=== PATIENT | female | born 1955 | race Two or more races ===

== ENCOUNTER → 2024-06-28 | Outpatient (CLI) | payer MEDICARE, MEDICAID, SELFPAY ==
--- NOTE | 2024-06-28 10:39 | XR_ITS ---
Examination: Shoulder,left, 3 views Technique: Shoulder AP internal rotation, AP external rotation, Y view shoulder, 3 views Exam date and time :June 28, 2024 1046 hours INDICATIONS: Status post shoulder replacement May 24, 2024 decreased range of motion FINDINGS: Reverse shoulder arthroplasty. Satisfactory alignment Prominent osteopenia No fracture IMPRESSION: Reverse shoulder arthroplasty with satisfactory alignment
== END | disposition home or self-care (01) ==
LOC: CDIM 10:21
PROVIDERS: PCP Nurse Practitioner Family; Referring Provider Orthopaedic Surgery Orthopaedic Trauma; Visit Provider Orthopaedic Surgery Orthopaedic Trauma
DX: Z47.1 Aftercare following joint replacement surgery (principal); Z96.612 Presence of left artificial shoulder joint; M25.512 Pain in left shoulder
CPT/HCPCS: 73030

== ENCOUNTER 2024-11-30 06:50 | Emergency (ER) | payer MEDICARE, MEDICAID, SELFPAY ==
--- NOTE | 2024-11-30 07:00 | XR_ITS ---
Examination: Shoulder,left, 3 views Technique: Shoulder AP internal rotation, AP external rotation, Y view shoulder, 3 views Exam date and time :November 30, 2024 0743 hours INDICATIONS: Patient fell today with injury to the shoulder, shoulder pain. FINDINGS: Acute comminuted displaced fractures distal clavicular shaft Reversal shoulder arthroplasty with satisfactory alignment IMPRESSION: Acute angulated comminuted displaced fractures distal clavicular shaft
--- NOTE | 2024-11-30 07:00 | XR_ITS ---
Examination: Clavicle 2 views, left Technique: Clavicle AP, angled up AP, 2 views Exam date and time: November 30, 2024 0743 hours INDICATIONS: Patient fell today with injury to the shoulder, clavicle pain FINDINGS: Acute comminuted fractures distal shaft clavicle one shaft width offset and angulation at the fracture site IMPRESSION: Acute comminuted clavicular shaft fractures
[2024-11-30 07:02] VITALS: BP 186/69; PULSE 70; RESP 18; TEMP 36.5; O2SAT 100; BMI 32.5
--- NOTE | 2024-11-30 07:23 | PD.EDFALL ---
ED Fall Injury RME/HPI General Chief Complaint: Fall Stated Complaint: LT SHOULDER PAIN Time Seen by Provider: 11/30/24 06:59 Arrival date/time: 11/30/24 06:50 RME / HPI RME / HPI Narrative: 68 year old female with history of end-stage renal disease on HD M/W/F, diabetes mellitus, hypertension, CVA with residual left-sided weakness, left shoulder surgery, presented to the ER BIBA with a chief complain of left shoulder pain from a fall. Per EMS, patient was sitting in a rolling chair and fell forward while leaning over in her chair to put on her shoes. Per EMS, she fell on her left side and hit her head on her fridge. Patient states she heard a crackle in her left shoulder. Per patient, she normally does not have full ROM/ mobility with her left shoulder/arm. Patient stated no other complaints. Related Data Home Medications ?Medication ?Instructions ?Recorded ?Confirmed amlodipine 5 mg tablet 10 mg PO QAM 07/30/21 11/30/24 sevelamer carbonate 800 mg tablet 800 mg PO TIDWM 07/30/21 12/28/23 hydralazine 50 mg tablet 100 mg PO TID 10/02/21 11/30/24 hydrocodone 10 mg-acetaminophen 5 tab PO QDAY PRN Pain 10/02/21 12/29/23 325 mg tablet albuterol sulfate 2.5 mg/3 mL 3 ml continuous nebulization TID 12/04/21 12/29/23 (0.083 %) solution for nebulization PRN WHEEZING lidocaine 5 % topical patch 1 patch topical QDAY 08/01/22 12/29/23 ropinirole 4 mg tablet 4 mg PO DAILY 08/01/22 11/30/24 gabapentin 300 mg capsule 300 mg PO 3XD 12/28/23 11/30/24 metoprolol succinate 100 mg 100 mg PO QMORNING 12/28/23 11/30/24 tablet,extended release 24 hr omeprazole 40 mg capsule,delayed 40 mg PO QDAY 12/28/23 11/30/24 release sodium zirconium cyclosilicate 10 10 g PO QDAY 12/28/23 12/29/23 gram oral powder packet (Lokelma) Previous Rx's ?Medication ?Instructions ?Recorded aspirin 81 mg tablet,delayed 81 mg PO QDAY #30 tabs 05/24/21 release (Adult Low Dose Aspirin) losartan 25 mg tablet 25 mg PO QDAY #30 tabs 08/04/22 hydrocodone 5 mg-acetaminophen 325 1 tab PO Q6H PRN pain #14 tabs 11/30/ mg tablet Allergies Allergy/AdvReac Type Severity Reaction Status Date / Time sulfamethoxazole Allergy Unknown Swelling Verified 01/23/22 10:16 of Lip/Tongue/Throat trimethoprim Allergy Unknown Swelling Verified 01/23/22 10:16 of Lip/Tongue/Throat Review of Systems Review of Systems Systems Reviewed: All systems reviewed, normal except as documented Narrative Review of Systems: Gen: No fever, no chills, no weight loss EYES: No discharge, no visual changes, no pain HEENT: No ear pain, no congestion, no sore throat PULM: No shortness of breath, no cough, no congestion CV: No chest pain, no dyspnea on exertion, no palpitations GI: No nausea, no vomiting, no diarrhea, no pain, no constipation : No frequency, no urgency, no dysuria Musc/skel: No joint pain, no back pain, +left shoulder pain Skin: No rash Psyc: No hallucinations, no depression Heme/Lymph: No easy bleeding or bruising tendencies Neuro: No weakness, no headache ED Exam Narrative Physical exam: GENERAL APPEARANCE: alert and oriented x 4, well-developed, well-nourished, no acute distress HEENT: Normocephalic, atraumatic; pupils equal, round, reactive to light; EOMI; mucous membranes pink, moist; oropharynx clear NECK: Supple LUNGS: CTABL; no wheezes, no rales, no rhonchi HEART: Regular rate, regular rhythm; normal S1, S2; no murmurs ABDOMEN: non distended; normal BS; soft, no tenderness, no guarding, no rebound; no masses, no organomegaly, no hernia BACK: no CVA tenderness EXTREMITIES: mild contracture of left arm; no edema NEUROLOGIC: awake; alert and oriented x4; cranial nerves II-XII grossly intact; no focal sensory or motor deficits PSYCHIATRIC: appropriate mood and affect SKIN: warm, dry, normal color; no rashes Course Quality Measures none Orders Category Date Time Status Bedside Blood Glucose NOW Care 11/30/24 10:15 Completed Wrapper Hand Q4H START 00 Care 11/30/24 08:16 Completed XR clavicle LT Stat Exams 11/30/24 07:00 Completed XR shoulder LT min 2V Stat Exams 11/30/24 07:00 Completed Albuterol/Ipratr Rt Ree [Duoneb Rt Ree] Med 11/30/24 13:07 Discontinued 3 ml INH X1 ONE HYDROcodone*/APAP 5/325 [Arthur 5/325] Med 11/30/24 07:01 Discontinued 1 tab PO X1 ONE Vital Signs Vital signs: Vital Signs Temperature 97.7 F 11/30/24 07:02 Pulse Rate 70 11/30/24 07:02 Respiratory Rate 18 11/30/24 07:02 Blood Pressure 186/69 H 11/30/24 07:02 Pulse Oximetry (%) 100 11/30/24 07:02 Oxygen Delivery Method Nasal Cannula 11/30/24 07:02 Oxygen Flow Rate 6 11/30/24 07:02 Fall MDM Narrative MDM Narrative:: IBrenda am scribing for and in the presence of Dr. Harper. Patient data External records reviewed:: [facility] previous records and EMS form Clinical information provided by:: patient and EMS Social determinants that could affect healthcare access:: none Patient has the following chronic illnesses:: end-stage renal disease on HD M/W/F, diabetes mellitus, hypertension, CVA with residual left-sided weakness, left shoulder surgery How is presenting disease/condition affected by chronic disease/condition?: exacerbated by Evaluation data The following diagnostics were reviewed and interpreted by me:: radiology exam(s) Lab and/or radiology exams considered but not ordered:: none. Interpretation Summary: Ordering Physician: Muna Harper MD Date of Service: 11/30/24 Procedure(s): XR shoulder LT min 2V Accession Number(s): [id number] cc: Anita Bobby ; Ricardo Belle MD; Muna Harper MD~ Examination: Shoulder,left, 3 views Technique: Shoulder AP internal rotation, AP external rotation, Y view shoulder, 3 views Exam date and time :November 30, 2024 0743 hours INDICATIONS: Patient fell today with injury to the shoulder, shoulder pain. FINDINGS: Acute comminuted displaced fractures distal clavicular shaft Reversal shoulder arthroplasty with satisfactory alignment IMPRESSION: Acute angulated comminuted displaced fractures distal clavicular shaft Dictated By: Ricardo Belle MD Signed By: <Electronically signed by Ricardo Belle MD in OV> 11/30/24926 Ordering Physician: Muna Harper MD Date of Service: 11/30/24 Procedure(s): XR clavicle LT Accession Number(s): [id number] cc: Anita Bobby ; Ricardo Belle MD; Muna Harper MD~ Examination: Clavicle 2 views, left Technique: Clavicle AP, angled up AP, 2 views Exam date and time: November 30, 2024 0743 hours INDICATIONS: Patient fell today with injury to the shoulder, clavicle pain FINDINGS: Acute comminuted fractures distal shaft clavicle one shaft width offset and angulation at the fracture site IMPRESSION: Acute comminuted clavicular shaft fractures Dictated By: Ricardo Belle MD Signed By: <Electronically signed by Ricardo Belle MD in OV> 11/30/24926 Medications / Prescriptions Medications or Prescriptions considered but not ordered:: none. Medication administrations:: Medication Administration History Discontinued Medications Hydrocodone Bitart/Acetaminophen (Hydrocodone/Apap 5/325 Tablet) 1 tab PO X1 ONE Stop: 11/30/24 07:02 Last Admin: 11/30/24 08:11 Dose: 1 tab Documented By: DB Albuterol/Ipratropium (Albuterol/Ipratropium (Duoneb) Rt Ree 3 Ml Nebu) 3 ml INH X1 ONE Stop: 11/30/24 13:08 Last Admin: 11/30/24 13:18 Dose: 3 ml Documented By: EV see above. Consultations Consultation(s) initiated? (list below): Yes Consultation #1 (Physician, Specialty, Details): I spoke with Dr. Trivedi, Ortho, and made aware of the patient?s HPI, PMHx, lab and/or radiology results. Recommended patient follow-up in outpatient with Dr. Zafar. Ortho Surgeon. Diagnosis Fall Differential Diagnosis: syncope, dislocation of shoulder region and compression fracture Most likely diagnosis given after review of the tests above:: closed fracture of left clavicle, comminuted fracture Admission Indicated Admission indicated?: not indicated Admission Request Was there a request for admission?: No Disposition Plan Disposition Plan: Discharge Discharge Attestation Discharge Attestation: The patient and all family members were given an opportunity to ask questions and understood the discharge instructions. Discharge instructions specifically effects, indications for sooner follow up or return to the emergency department, and the expected course of current diagnosis. Patient condition: Stable Discharge Plan Plan Patient Disposition: HOME (Self Care) Prescriptions/Referrals Prescriptions/Med Rec: New hydrocodone-acetaminophen 5-325 mg tablet 1 tab PO Q6H MDD 9 PRN (Reason: pain) Qty: 14 0RF No Action aspirin [Adult Low Dose Aspirin] 81 mg tablet,delayed release (DR/EC) 81 mg PO QDAY Qty: 30 0RF sevelamer carbonate 800 mg tablet 800 mg PO TIDWM amlodipine 5 mg tablet 10 mg PO QAM albuterol sulfate 2.5 mg /3 mL (0.083 %) solution for nebulization 3 ml continuous nebulization TID PRN (Reason: WHEEZING) hydrocodone-acetaminophen 10-325 mg tablet 5 tab PO QDAY PRN (Reason: Pain) hydralazine 50 mg tablet 100 mg PO TID metoprolol succinate 100 mg tablet extended release 24 hr 100 mg PO QMORNING omeprazole 40 mg capsule,delayed release(DR/EC) 40 mg PO QDAY gabapentin 300 mg capsule 300 mg PO 3XD Lokelma 10 gram powder in packet 10 g PO QDAY lidocaine 5 % adhesive patch,medicated 1 patch TOPICAL QDAY ropinirole 4 mg Tablet 4 mg PO DAILY Rx Instructions: TAKE 1 TABLET BY MOUTH 2 HOURS PRIOR TO BEDTIME losartan 25 mg tablet 25 mg PO QDAY Qty: 30 0RF Referrals: Cassius Zafar DO [Referring Provider] - Anita Bobby [Primary Care Provider] - In 1 week Problem List Clinical Impression: Closed fracture of left clavicle, Comminuted fracture Patient/Caregiver Discharge Instructions Education Materials: Understanding a Clavicle Fracture, ED Fracture, Clavicle Additional Instructions: Call orthopedist for follow up appointment Print Language: Slovak Stand Alone Forms: Deepa Award Info., Patient Portal Info Letter
[2024-11-30 07:26] VITALS: PULSE 82; RESP 22; O2SAT 99
[2024-11-30] MEDS: HYDROcodone/APAP 5/325 TABLET 1 TAB PO (08:11)
[2024-11-30 08:16] VITALS: PULSE 91
--- NOTE | 2024-11-30 08:20 | PC.NURSE ---
PT BIB EMS WITH CHIEF C/O OF LEFT SHOULDER PAIN S/P FALL AFTER SHE WAS LEANING FORWARD ON HER CHAIR TO PUT ON HER SHOES. I SPOKE WITH THIS PT DAUGHTER OVER THE PHONE WHO REPORTED TO ME THAT THIS PT FELL LAST NIGHT AT 2300HR AND HIT HER HEAD ON A SMALL REFRIGERATOR THAT SHE HAS IN HER ROOM WITH NO LOC, NOR THE PT DID NOT C/O OF A HEADACHE THOUGHT OUT THE NIGHT, BUT MAINLY C/O OF LEFT SHOULD PAIN. ON ASSESSMENT THERE NO VISIBLE INJURES NOTED ON PT HEAD, NO NECK PAIN. THERE IS PAIN TO THE LEFT ARM ON MOVEMENT WHICH LOCALIZE TO THE LEFT SHOULDER. THERE IS SWELLING AND ECCHYMOSIS TO THE LEFT SHOULDER WITH A WELL HEALED SURGICAL SCAR NOTE. CMS INTACT ON THE LEFT ARM. PT IS UNABLE TO MOVE LEFT ARM DUE TO A CVA IN THE PAST. 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 PT IS A [employer] OF 17, A&OX4, PT PLACED IN A POSITION OF COMFORT, PT GIVEN UPDATE ON PLAN OF CARE, CALL LIGHT WITHIN REACH.
[2024-11-30 10:04] VITALS: BP 158/59; PULSE 65; RESP 17; TEMP 36.5; O2SAT 98
[2024-11-30] MEDS: ALBUTEROL/IPRATROPIUM (Duoneb) RT SOL 3 ML NEBU INH (13:18)
[2024-11-30 13:19] VITALS: PULSE 80; PULSE 84; RESP 24; O2SAT 100; O2SAT 95
[2024-11-30 13:58] VITALS: BP 189/96; PULSE 79; RESP 20; TEMP 36.7; O2SAT 99
== END 2024-11-30 13:59 | disposition home or self-care (01) ==
PROVIDERS: Emergency Provider Emergency Medicine; PCP Nurse Practitioner Family
DX: S42.032A Displaced fracture of lateral end of left clavicle, initial encounter for closed fracture (principal); W19.XXXA Unspecified fall, initial encounter; E11.22 Type 2 diabetes mellitus with diabetic chronic kidney disease; I12.0 Hypertensive chronic kidney disease with stage 5 chronic kidney disease or end stage renal disease; N18.6 End stage renal disease; I69.354 Hemiplegia and hemiparesis following cerebral infarction affecting left non-dominant side
CPT/HCPCS: 73000; 73030; 94640; 99283; A9270

== ENCOUNTER 2025-04-09 01:00 | Inpatient (IN) | payer MEDICARE, MEDICAID, SELFPAY ==
[2025-04-09] VITALS (31 sets, daily range): BP systolic 107–211; BP diastolic 52–90; PULSE 70–109; RESP 18–28; TEMP 36.3–37.7; O2SAT 91–100; BMI 27.1
--- NOTE | 2025-04-09 01:07 | PD.EDABDPN ---
ED Abdominal Pain RME/HPI General Chief Complaint: Nausea/Vomiting/Diarrhea Stated complaint: ABDOMINAL PAIN Time seen by provider: 04/09/25 01:28 Arrival date/time: 04/09/25 01:00 Source: patient and family Mode of arrival: EMS RME / HPI RME / HPI narrative: Ms. Triplett is a 69-year-old female with past medical history of ESRD on HD M/W/F, diabetes mellitus, hypertension, CVA with residual left-sided weakness and left shoulder surgery who presented to [facility] ([facility]3] emergency department with a chief complaint of nausea vomiting and abdominal pain. Patient reported that her symptoms started earlier tonight, complains of uncontrollable nausea vomiting with some episodes of diarrhea, reports passing gas and a regular bowel movement earlier today. On exam patient's abdomen is soft however tender on left side. She denies any other symptoms. Related Data Home Medications ?Medication ?Instructions ?Recorded ?Confirmed amlodipine 5 mg tablet 10 mg PO QAM 07/30/21 04/09/25 sevelamer carbonate 800 mg tablet 800 mg PO TIDWM 07/30/21 04/09/25 hydralazine 50 mg tablet 100 mg PO TID 10/02/21 04/09/25 hydrocodone 10 mg-acetaminophen 5 tab PO QDAY PRN Pain 10/02/21 04/09/25 325 mg tablet albuterol sulfate 2.5 mg/3 mL 3 ml continuous nebulization TID 12/04/21 04/09/25 (0.083 %) solution for nebulization PRN WHEEZING lidocaine 5 % topical patch 1 patch topical QDAY 08/01/22 04/09/25 ropinirole 4 mg tablet 4 mg PO DAILY 08/01/22 04/09/25 gabapentin 300 mg capsule 300 mg PO 3XD 12/28/23 04/09/25 metoprolol succinate 100 mg 100 mg PO QMORNING 12/28/23 04/09/25 tablet,extended release 24 hr Held on 04/09/25. Instructions: Doctor's Order omeprazole 40 mg capsule,delayed 40 mg PO QDAY 12/28/23 04/09/25 release sodium zirconium cyclosilicate 10 10 g PO QDAY 12/28/23 04/09/25 gram oral powder packet (Lokelia) vitamin B comp no.3-folic acid 1 1 tab PO QDAY 04/09/25 04/09/25 mg-vit C 60 mg-biotin 300 mcg tablet ([facility]) Previous Rx's ?Medication ?Instructions ?Recorded aspirin 81 mg tablet,delayed 81 mg PO QDAY #30 tabs 05/24/21 release (Adult Low Dose Aspirin) losartan 25 mg tablet 25 mg PO QDAY #30 tabs 08/04/22 hydrocodone 5 mg-acetaminophen 325 1 tab PO Q6H PRN pain #14 tabs 11/30/24 mg tablet Held on 04/09/25. Instructions: Duplicate Allergies Allergy/AdvReac Type Severity Reaction Status Date / Time sulfamethoxazole Allergy Unknown Swelling Verified 04/09/25 01:07 of Lip/Tongue/Throat trimethoprim Allergy Unknown Swelling Verified 04/09/25 01:07 of Lip/Tongue/Throat Review of Systems Review of Systems Systems Reviewed: All systems reviewed, normal except as documented Past Medical History Past Medical History NEUROLOGIC: Positive Neurological Disorders and Cerebrovascular Accident; Negative Dementia, Seizures or Epilepsy CARDIAC: Positive Cardiac Disorders, Congestive Heart Failure, Edema and Hypertension RESPIRATORY: Positive Asthma, Bronchitis and Pneumonia; Negative Chronic Obstructive Pulmonary Disease (COPD) GASTROINTESTINAL: Positive Gastrointestinal Disorders and Gastroesophageal Reflux Disease; Negative Gall Bladder Disease or Hiatal Hernia GENITOURINARY: Positive Genitourinary Disorders, Renal Disease and Dialysis MUSCULOSKELETAL: Positive Musculoskeletal Disorders, Arthritis, Osteoporosis and Carpal Tunnel Syndrome ENT: Positive Deafness ENDOCRINE: Positive Endocrine Disorders and Diabetes Mellitus Type 2; Negative Diabetes Mellitus Type 1, Hyperthyroidism or Hypothyroidism HEMATOLOGIC: Positive Blood Disorders; Negative Anemia or Sickle Cell Disease PSYCHO/SOCIAL: Positive Depression and Anxiety OTHER HISTORY: Positive Shingles and Falls; Negative Autoimmune Disease, Blood Transfusions, Blood Transfusion Reaction, Anesthesia Reactions or Cancer Family History FAMILY HISTORY: Positive Family Respiratory Disorders, Family Cardiac Disorders and Family Surgery; Negative Family Psychiatric Problems, Family Gastrointestinal Problems, Family Cancer or Family Anesthesia Reaction Surgical History SURGICAL: Positive Hysterectomy Social History SMOKING STATUS: Never smoker SECOND HAND EXPOSURE: Yes ED Exam Narrative Physical exam: Physical Exam General: Awake and in mild acute distress. Conversational and non-toxic appearing. HEENT: Normocephalic, atraumatic, mucous membranes moist. Heart: Regular rate and rhythm, no murmurs. Lungs: Minimal bilateral crackles Abdomen: Soft, nondistended, left sided abdominal tenderness, positive bowel sounds. ?No guarding or rebound tenderness. Neurologic: Alert and oriented x3 and patient has deficits on the left side secondary to CVA in past Extremities: Trace bilateral lower extremity edema Skin: No rash or ecchymoses. Course Quality Measures none Orders Category Date Time Status Bedside Blood Glucose NOW Care 04/09/25 08:06 Active Bedside Blood Glucose Q2HX3 Care 04/09/25 02:[address] Screening NOW Care 04/09/25 07:13 Active Filling And Packing Supervisor Q4H START 00 Care 04/09/25 08:06 Active Confirm (Xray) Before DC NOW Care 04/09/25 09:45 Active EKG (ED ONLY) *Do not use* NOW Care 04/09/25 01:16 Completed Hemodialysis Urgent Care 04/09/25 03:19 Active Insert IV NOW Care 04/09/25 08:06 Active Insert NG / OG tube NOW Care 04/09/25 09:00 Active Strict Intake and Output Routine Care 04/09/25 08:06 Ordered Consult to Nephrology Stat Cons 04/09/25 02:[address] abdomen pelvis w con Stat Exams 04/09/25 07:13 Completed EKG (ED Only) Stat Exams 04/09/25 01:16 Draft KUB [XR abdomen 1V] Routine Exams 04/09/25 04:50 Completed XR chest 1V SEPSIS PROTOCOL Stat Exams 04/09/25 08:06 Completed XR chest 1V Stat Exams 04/09/25 10:33 Completed XR small bowel single contrast Stat Exams 04/09/25 08:05 Ordered Amylase Stat Lab 04/09/25 01:21 Completed Blood Culture (Lab) Stat Lab 04/09/25 08:22 Received CBC Stat Lab 04/09/25 01:21 Completed CMP [Comprehensive Metabolic Panel] Stat Lab 04/09/25 01:21 Completed Comprehensive Metabolic Panel Stat Lab 04/09/25 08:22 Completed INR [Prothrombin Time with INR] Stat Lab 04/09/25 01:21 Completed Lactate (Lactic Acid) Stat Lab 04/09/25 01:21 Completed Lactate (Lactic Acid) Stat Lab 04/09/25 08:22 Results Lactic Acid, 3 HR Stat Lab 04/09/25 05:10 Completed Magnesium Stat Lab 04/09/25 01:21 Completed PTT [Partial Thromboplastin Time] Stat Lab 04/09/25 01:21 Completed Partial Thromboplastin Time Stat Lab 04/09/25 08:22 Completed Procalcitonin Stat Lab 04/09/25 01:21 Completed Procalcitonin Stat Lab 04/09/25 08:22 Completed Troponin I Stat Lab 04/09/25 01:21 Completed Urinalysis Stat Lab 04/09/25 09:00 Completed Urine Culture Stat Lab 04/09/25 09:09 Received ALBUTEROL RT 0.5ml [Proventil Rt 0.5ml] Med 04/09/25 02:44 Discontinued 10 mg .ROUTE .STK-MED ONE ALBUTEROL RT 0.5ml [Proventil Rt 0.5ml] Med 04/09/25 02:37 Discontinued 10 mg INH X1 ONE Acetaminophen Ivpb [Ofirmev Inj] Med 04/09/25 08:09 Discontinued 1,000 mg in 100 ml IV STAT Calcium Gluconate 10% Inj Med 04/09/25 02:35 Discontinued 1 gm IV X1 ONE Dextrose 50% Syr [D50w Syringe Abboject] Med 04/09/25 02:33 Discontinued 100 ml IV X1 ONE Dextrose 50% Syr [D50w Syringe Abboject] Med 04/09/25 02:33 Active 25 ml IV Q15MIN PRN Dextrose 50% Syr [D50w Syringe Abboject] Med 04/09/25 02:33 Active 50 ml IV Q15MIN PRN Furosemide [Lasix Inj] Med 04/09/25 02:33 Discontinued 40 mg IVP X1 ONE Glucagon Inj Med 04/09/25 02:33 Active 1 mg IM Q15MIN PRN Insulin Regular Med 04/09/25 02:33 Discontinued 5 unit IV X1 ONE Ondansetron Inj [Zofran Inj] Med 04/09/25 01:12 Discontinued 4 mg IVP X1 ONE Piper/Tazo Inj [Zosyn Inj] 4.5 gm Med 04/09/25 08:05 Discontinued Sodium Chloride 0.9% (Pop) [NS 0.9% mini bag] 100 ml IV STAT Sodium Bicarb 8.4% SYR Med 04/09/25 02:33 Discontinued 50 ml IV X1 ONE Sodium Chloride Rt Ree 0.9% [NS Rt Ree 0.9%] Med 04/09/25 02:37 Active 3 ml INH PRN PRN Oxygen Delivery NOW RT 04/09/25 08:06 Active Vital Signs Vital signs: Vital Signs Temperature 98.1 F 04/09/25 01:11 Pulse Rate 87 04/09/25 01:11 Respiratory Rate 20 04/09/25 01:11 Blood Pressure 181/89 H 04/09/25 01:11 Pulse Oximetry (%) 95 04/09/25 01:11 Oxygen Delivery Method Room Air 04/09/25 01:11 Abdominal Pain MDM MDM Narrative MDM Narrative:: #Severe hyperkalemia #End-stage renal disease #Abdominal pain #Nausea and vomiting 69-year-old female with past medical history as above presented with a chief complaint of nausea vomiting and abdominal pain started around 2 AM. Reports passing flatus and had a bowel movement earlier this morning. Patient given Zofran 4 mg x 1 Workup: EKG showed Sinus rhythm, QTc 434 CBC: WBC 12.5, hemoglobin 13.4, hematocrit 41.6, platelet 221 Chemistry panel: Sodium 140 potassium 7.4, chloride 98, bicarb 32.7, BUN 53 creatinine 5.8 GFR 7 glucose 137 lactate 2.9 calcium 10.1 magnesium 2.6 AST ALT within normal limits alk phos 156, troponin negative less than 0.02, amylase 142 total protein albumin and Pro-Isaiah within normal limits KUB and CT abdomen pelvis pending Due to patient's elevated potassium of 7.4 patient was given albuterol 10 mg x 1, 100 cc dextrose with 5 units of insulin, 40 mg Lasix, calcium gluconate 1 g and sodium bicarbonate 50 cc Due to severe hyperkalemia case was discussed with patient's pecan sheller Dr. Gunderson patient scheduled for emergent dialysis. Pending workup: KUB and CT abdomen pelvis. Patient will be signed out to day ED physician Dr. Andrea. Case discussed with Attending Physician Dr. Diamante Nicholson MD Internal Medicine PGY-2 Disclaimer: This note was dictated by speech recognition. Minor errors in transcription typist may be present due to voice recognition software. Patient data External records reviewed:: [facility] previous records Clinical information provided by:: patient and family Social determinants that could affect healthcare access:: none Patient has the following chronic illnesses:: As Above How is presenting disease/condition affected by chronic disease/condition?: exacerbated by Evaluation data The following diagnostics were reviewed and interpreted by me:: lab results, radiology exam(s) and EKG tracing(s) Lab and/or radiology exams considered but not ordered:: None Interpretation Summary: EKG showed Sinus rhythm, QTc 434 CBC: WBC 12.5, hemoglobin 13.4, hematocrit 41.6, platelet 221 Chemistry panel: Sodium 140 potassium 7.4, chloride 98, bicarb 32.7, BUN 53 creatinine 5.8 GFR 7 glucose 137 lactate 2.9 calcium 10.1 magnesium 2.6 AST ALT within normal limits alk phos 156, troponin negative less than 0.02, amylase 142 total protein albumin and Pro-Isaiah within normal limits KUB and CT abdomen pelvis pending Medications / Prescriptions Medications or Prescriptions considered but not ordered:: None Medication administrations:: Medication Administration History Dextrose (Dextrose 50%-Water Inj 50 Ml Syringe) 25 ml IV Q15MIN PRN PRN Reason: BG 50-70 responsive npo pt Stop: 05/09/25 02:32 Dextrose (Dextrose 50%-Water Inj 50 Ml Syringe) 50 ml IV Q15MIN PRN PRN Reason: BG <50 OR BG <70 & pt unresponsive Stop: 05/09/25 02:32 Glucagon (Glucagon Inj 1 Mg Vial) 1 mg IM Q15MIN PRN PRN Reason: BG <70, and no IV access Sodium Chloride (Sodium Chloride Rt Ree 0.9% 3 Ml Nebu) 3 ml INH PRN PRN PRN Reason: SOLN Stop: 05/09/25 02:36 Discontinued Medications Albuterol (Albuterol Rt 2.5 Mg/0.5 Ml Nebu) 10 mg INH X1 ONE Stop: 04/09/25 02:38 Last Admin: 04/09/25 02:46 Dose: 10 mg Documented By: RITA Albuterol (Albuterol Rt 2.5 Mg/0.5 Ml Nebu) Confirm Administered Dose 10 mg .ROUTE .STK-MED ONE Stop: 04/09/25 02:45 Last Admin: 04/09/25 07:48 Dose: 10 mg Documented By: SC Comments: per charting, given at 0247 by RT Marcus Calcium Gluconate (Calcium Gluconate 10% Inj 1 Gm/10 Ml Vial) 1 gm IV X1 ONE Stop: 04/09/25 02:36 Last Admin: 04/09/25 03:28 Dose: 1 gm Documented By: CCT Dextrose (Dextrose 50%-Water Inj 50 Ml Syringe) 100 ml IV X1 ONE Stop: 04/09/25 02:34 Last Admin: 04/09/25 03:18 Dose: 100 ml Documented By: CCT Furosemide (Furosemide Inj 10 Mg/Ml Vial 2 Ml) 40 mg IVP X1 ONE Stop: 04/09/25 02:34 Last Admin: 04/09/25 03:27 Dose: 40 mg Documented By: CCT Piperacillin Sod/Tazobactam (Sod 4.5 gm/ Sodium Chloride) 100 mls @ 200 mls/hr IV STAT STA; Protocol Stop: 04/09/25 08:34 Last Infusion: 04/09/25 10:16 Dose: Infused Documented By: Admin: 04/09/25 08:44 Dose: 200 mls/hr Documented By: BY Acetaminophen (Ofirmev Inj) 1,000 mg in 100 mls @ 250 mls/hr IV STAT STA Stop: 04/09/25 08:32 Last Infusion: 04/09/25 10:16 Dose: Infused Documented By: Admin: 04/09/25 08:45 Dose: 250 mls/hr Documented By: BY Insulin Human Regular (Insulin Hum Regular 1 Unit/0.01 Ml (Per Unit)) 5 unit IV X1 ONE Stop: 04/09/25 02:34 Last Admin: 04/09/25 03:18 Dose: 5 unit Documented By: CCT Co-signed By: CB Ondansetron HCl (Ondansetron Inj 2 Mg/Ml Inj 2 Ml) 4 mg IVP X1 ONE; Protocol Stop: 04/09/25 01:13 Last Admin: 04/09/25 01:28 Dose: 4 mg Documented By: CCT Sodium Bicarbonate (Sodium Bicarb Inj 8.4% Syr 50 Ml Syringe) 50 ml IV X1 ONE Stop: 04/09/25 02:34 Last Admin: 04/09/25 03:34 Dose: 50 ml Documented By: CCT As Above Consultations Consultation(s) initiated? (list below): Yes Consultation #1 (Physician, Specialty, Details): Dr Gunderson, Nephrology Diagnosis Differential diagnosis abdominal pain: abdominal pain and small bowel obstruction Most likely diagnosis given after review of the tests above:: Pending Workup Admission Indicated Admission indicated?: not indicated Admission Request Was there a request for admission?: No Disposition Plan Disposition Plan: other (specify) (Signed out to Dr Andrea) Discharge Plan Prescriptions/Referrals Prescriptions/Med Rec: No Action aspirin [Adult Low Dose Aspirin] 81 mg tablet,delayed release (DR/EC) 81 mg PO QDAY Qty: 30 0RF sevelamer carbonate 800 mg tablet 800 mg PO TIDWM amlodipine 5 mg tablet 10 mg PO QAM albuterol sulfate 2.5 mg /3 mL (0.083 %) solution for nebulization 3 ml continuous nebulization TID PRN (Reason: WHEEZING) hydrocodone-acetaminophen 10-325 mg tablet 5 tab PO QDAY PRN (Reason: Pain) hydralazine 50 mg tablet 100 mg PO TID metoprolol succinate 100 mg tablet extended release 24 hr 100 mg PO QMORNING omeprazole 40 mg capsule,delayed release(DR/EC) 40 mg PO QDAY gabapentin 300 mg capsule 300 mg PO 3XD Lokelma 10 gram powder in packet 10 g PO QDAY [facility] Rx 1-60-300 mg-mg-mcg tablet 1 tab PO QDAY lidocaine 5 % adhesive patch,medicated 1 patch TOPICAL QDAY ropinirole 4 mg Tablet 4 mg PO DAILY Rx Instructions: TAKE 1 TABLET BY MOUTH 2 HOURS PRIOR TO BEDTIME losartan 25 mg tablet 25 mg PO QDAY Qty: 30 0RF hydrocodone-acetaminophen 5-325 mg tablet 1 tab PO Q6H MDD 9 PRN (Reason: pain) Qty: 14 0RF Problem List Clinical Impression: Acute hyperkalemia, Abdominal pain Patient/Caregiver Discharge Instructions Print Language: Tajik
--- NOTE | 2025-04-09 01:16 | EKG_ITS ---
[facility] Test Date: 2025-04-09 Pat Name: JOSE KRAUSE Department: Room: - Gender: Female Neurodiagnostic Technologist: : 1955 Requested By: Sarah Nicholson Order Number: [id number] Reading MD: Sarah Nicholson Measurements Intervals Portia Rate: 87 P: 46 IN: 201 QRS: -18 QRSD: 80 T: 59 QT: 360 QTc: 434 Interpretive Statements SINUS RHYTHM Compared to ECG 12/28/2023 19:24:20 Myocardial infarct finding no longer present /store/S0/[id number].pdf
[2025-04-09] MEDS: ONDANSETRON INJ 2 MG/ML INJ 2 ML 4 MG IVP ×2 (01:28→21:51)
[2025-04-09 01:45] LABS: Basophils # (Auto) 0.0 Thou/mm3 (0.0-0.2); Basophils % (Auto) 0 % (0-2.5); Eosinophils # (Auto) 0.1 Thou/mm3 (0.0-0.5); Eosinophils % (Auto) 1 % (0-10); Hematocrit 41.6 % (36.0-46.0); Hemoglobin 13.4 g/dL (12.0-16.0); Immature Granulocytes Auto 0.05 Thou/mm3 (0.00-0.00); Lymphocytes # (Auto) 1.1 Thou/mm3 (1.0-4.8); Lymphocytes % (Auto) 9 % (10-50); Mean Corpuscular HGB Conc 32.2 g/dl (31.0-37.0); Mean Corpuscular Hemoglobin 31.7 pg (25.0-35.0); Mean Corpuscular Volume 98 fL (80-100); Monocytes # (Auto) 0.6 Thou/mm3 (0.0-0.8); Monocytes % (Auto) 5 % (0-12); Neutrophils # (Auto) 10.7 Thou/mm3 (1.8-7.7); Neutrophils % (Auto) 85 % (37-80); Nucleated Red Blood Cell # 0.00 Thou/mm3 (0.00-0.00); Nucleated Red Blood Cell % 0 /100 WBC (0); Platelet Count 221 Thou/mm3 (140-440); RDW Standard Deviation 53.4 fL (36.4-46.3); Red Blood Count 4.23 Miln/mm3 (4.00-5.20); White Blood Count 12.5 Thou/mm3 (3.6-11.0)
[2025-04-09 02:05] LABS: INR 1.0 (0.9-1.3); Partial Thromboplastin Time 27.3 Seconds (22.0-36.0); Prothrombin Time 10.4 Seconds (9.0-12.2)
[2025-04-09 02:16] LABS: Alanine Aminotransferase 25 U/L (10-49); Albumin, Serum 4.3 gm/dL (3.4-4.8); Albumin/Globulin Ratio 1.3 (1.2-2.2); Alkaline Phosphatase 156 U/L (46-116); Amylase 142 U/L (30-118); Anion Gap 9 (7-16); Aspartate Amino Transferase 34 U/L (0-34); BUN/Creatinine Ratio 9 Ratio (12-20); Bilirubin,Total 0.3 mg/dL (0.3-1.2); Blood Urea Nitrogen 53 mg/dL (9-23); Calcium 10.1 mg/dL (8.3-10.6); Calcium (Corrected) 10.1 mg/dL (8.5-10.1); Carbon Dioxide 32.7 mMol/L (20.0-31.0); Chloride 98 mMol/L (98-107); Creatinine (Component) 5.8 mg/dL (0.6-1.3); Estimated Creatinine Clearance 8.1 mL/min (>60); Globulin 3.2 gm/dL (2.3-3.5); Glucose 137 mg/dL (74-106); Magnesium 2.6 mg/dL (1.6-2.6); Osmolality,Calculated 295 (275-295); Procalcitonin 0.34 ng/ml (0.0-0.49); Sodium 140 mMol/L (136-145); Total Protein 7.5 gm/dL (5.7-8.2); Troponin I < 0.020 ng/mL (0.0-0.045); eGFR 7 See Note
[2025-04-09 02:18] LABS: Potassium 7.4 mMol/L (3.4-5.1)
[2025-04-09 02:24] LABS: Lactate (Lactic Acid) 2.9 mMol/L (0.4-2.0)
[2025-04-09] MEDS: ALBUTEROL RT 2.5 MG/0.5 ML NEBU 10 MG INH (02:46)
[2025-04-09] MEDS: DEXTROSE 50%-WATER INJ 50 ML SYRINGE 100 ML IV (03:18)
[2025-04-09] MEDS: INSULIN HUM REGULAR 1 UNIT/0.01 ML (PER UNIT) 5 UNIT IV (03:18)
[2025-04-09] MEDS: FUROSEMIDE INJ 10 MG/ML VIAL 2 ML 40 MG IVP (03:27)
[2025-04-09] MEDS: CALCIUM GLUCONATE 10% INJ 1 GM/10 ML VIAL IV (03:28)
[2025-04-09] MEDS: Sodium Bicarb Inj 8.4% SYR 50 ML SYRINGE IV (03:34)
--- NOTE | 2025-04-09 03:46 | PC.NURSE ---
Pt taken to dialysis via madai with Daniel Haley RN
[2025-04-09 04:39] LABS: Reflex Lactate? Y
--- NOTE | 2025-04-09 04:50 | XR_ITS ---
Examination: Abdomen AP single view Technique: AP portable supine abdomen, single view Exam date and time: April 09, 2025 0702 hrs., Comparison December 31, 2023 Indications: Abdominal pain today. Findings: Prominently air distended small bowel loops No free air Prominent osteopenia Mild to moderate stool in the colon Impression: Small bowel obstruction, consider Gastrografin small bowel series follow-up
[2025-04-09 05:23] LABS: Lactic Acid, 3 HR 2.9 mMol/L (0.4-2.0)
--- NOTE | 2025-04-09 06:31 | EDNOTE_ITS ---
Emergency Room Addendum <Dalila Lindquist - Last Filed: 04/09/25 11:20> Addendum Narrative: 0600: Care assumed from Sarah Griffith working with Dr. Bobby, the previous shift emergency physician. Past medical, surgical, social and family history reviewed. Vitals and home medications reviewed. I will assume the care of the patient at this time. Please refer to the emergency department record for history and examination from initial visit.? At 0642 hours, patient is still at dialysis. Patient is a 69-year-old female with medical history notable for ESRD goes to dialysis Thursday, diabetes, hypertension, old stroke with residual left-sided deficits, prior SBO that is in the Emergency Department concerns for abdominal pain. Prior provider evaluated patient. Ordered labs, open medication for symptom relief. Labs with evidence of leukocytosis 12.5, left shift of 85%. Patient hemoglobin is 13.4. Patient potassium is 7.4, prior provider already medications for management of hyperkalemia, also consulted patient's chimney builder helper, ordered emergent dialysis. Patient bicarb is 32.7, anion gap normal. No EKG changes. Lactic acid 2.9. No significant transaminitis. Troponin not elevated. Amylase is 142. EKG performed at 139 this morning, sinus rhythm, normal intervals, nonspecific T wave changes, not a cardiac alert. Patient is pending CT scan of her abdomen, repeat labs and reassessment. 0806: Sepsis alert initiated. Orders made at this time are congruent with ED Adult Sepsis Order List. Re-evaluation is to be completed. 0837: Reevaluation at this time shows the patient is comfortable. She reports history of a hysterectomy. Last bowel movement was yesterday. xx: Fluids started. 0900: Sepsis reassessment performed consisting of lab review, vitals, physical exam including auscultation of heart, lungs, and visual evaluation of capillary refills, mucosal membranes and extremities. KUB shows evidence of possible bowel obstruction. Ordered NG tube. Also ordered XR small bowel series with Gastrografin. 1119: Discussed test HPI, PMHx, lab, radiology results and/or management with Dr. Jack. CRITICAL CARE: TIME: 45 minutes. The high probability of sudden, clinically significant deterioration in the patient?s condition required the highest level of my preparedness to intervene urgently. The services I provided to this patient were to treat and/or prevent clinically significant deterioration. Services included the following: chart data review, reviewing nursing notes and/or old charts, documentation time, customer sales consultant collaboration regarding findings and treatment options, medication orders and management, direct patient care, vital sign assessments and ordering, interpreting and reviewing diagnostic studies and lab tests. Aggregate critical care time includes only time during which I was engaged in work directly related to the patient?s care, as described above, whether at bedside or elsewhere in the Emergency Department. It did not include time spent performing other reported procedures or the services of residents, students, nurses or physician assistants. <Aarti Andrea MD - Last Filed: 04/09/25 11:23> Addendum Narrative: 0600: Care assumed from Sarah Griffith working with Dr. Bobby, the previous shift emergency physician. Past medical, surgical, social and family history reviewed. Vitals and home medications reviewed. I will assume the care of the patient at this time. Please refer to the emergency department record for history and examination from initial visit.? At 0642 hours, patient is still at dialysis. Patient is a 69-year-old female with medical history notable for ESRD goes to dialysis Thursday, diabetes, hypertension, old stroke with residual left-sided deficits, prior SBO that is in the Emergency Department concerns for abdominal pain. Prior provider evaluated patient. Ordered labs, open medication for symptom relief. Labs with evidence of leukocytosis 12.5, left shift of 85%. Patient hemoglobin is 13.4. Patient potassium is 7.4, prior provider already medications for management of hyperkalemia, also consulted patient's chimney builder helper, ordered emergent dialysis. Patient bicarb is 32.7, anion gap normal. No EKG changes. Lactic acid 2.9. No significant transaminitis. Troponin not elevated. Amylase is 142. EKG performed at 139 this morning, sinus rhythm, normal intervals, nonspecific T wave changes, not a cardiac alert. Patient is pending CT scan of her abdomen, repeat labs and reassessment. 0806: Sepsis alert initiated. Orders made at this time are congruent with ED Adult Sepsis Order List. Re-evaluation is to be completed. 0837: Reevaluation at this time shows the patient is comfortable. She reports history of a hysterectomy. Last bowel movement was yesterday. 0900: Sepsis reassessment performed consisting of lab review, vitals, physical exam including auscultation of heart, lungs, and visual evaluation of capillary refills, mucosal membranes and extremities. Patient GCS 15, abdomen soft, mild tenderness palpation, no rebound or guarding. Procalcitonin is elevated. KUB shows evidence of possible bowel obstruction. Ordered NG tube. Also ordered XR small bowel series with Gastrografin. CT scan shows small bowel obstruction, no free fluid. Repeat lactic acid up trended to 4. Electrolytes are now within normal limits. Consulted on-call surgeon Dr. Jack, requested callback by the hospitalist service if the small bowel follow-through is positive. I did discuss the case with the hospitalist service. Will admit the patient. Updated patient and her daughter at bedside. In agreement with treatment plan CRITICAL CARE: TIME: 60 minutes. The high probability of sudden, clinically significant deterioration in the patient?s condition required the highest level of my preparedness to intervene urgently. The services I provided to this patient were to treat and/or prevent clinically significant deterioration. Services included the following: chart data review, reviewing nursing notes and/or old charts, documentation time, customer sales consultant co llaboration regarding findings and treatment options, medication orders and management, direct patient care, vital sign assessments and ordering, interpreting and reviewing diagnostic studies and lab tests. Aggregate critical care time includes only time during which I was engaged in work directly related to the patient?s care, as described above, whether at bedside or elsewhere in the Emergency Department. It did not include time spent performing other reported procedures or the services of residents, students, nurses or physician assistants.
--- NOTE | 2025-04-09 07:00 | PC.NURSE ---
Pt back from dialysis. Per CUAUHTEMOC Haley removed 1liter.
--- NOTE | 2025-04-09 07:13 | XR_ITS ---
Examination: CT abdomen with intravenous contrast CT pelvis with intravenous contrast 2-D coronal reconstructions 2-D sagittal reconstructions Date and time of exam:April 09, 2025, 0917 hrs. Comparison December 28, 2023 Indications: Abdominal distention and pain 4 days, history small bowel obstruction December 28, 2023. CTDI: vol (mGy) 10.3 DLP: (mGycm) 326 Technique: Multiple axial sections of the abdomen and pelvis have been obtained. 64 slice high-resolution scanner used. 3 mm axial sections have been obtained, post intravenous injection 60 cc [id number] 2-D sagittal, coronal reconstructions obtained. Low dose protocols were performed. One or more of the following dose reduction techniques were used; automated exposure control, adjustment of the mA and/or KV according to patient size, use of iterative reconstruction technique. Findings: 5 mm pulmonary nodule right middle lobe No focal liver or splenic lesions No gallstones No pancreatic or adrenal mass Atrophic kidneys with significant renal scarring, perinephric stranding, lower pole 26 mm left renal cyst Small bowel obstruction pattern, multiple fluid distended small bowel loops No pericecal inflammatory change Absent uterus Urinary bladder wall thickening up to 10 mm Severe osteopenia Impression: 5 mm pulmonary nodule right middle lobe, recommend elective CT chest without contrast follow-up Atrophic kidneys with significant renal scarring Small bowel obstruction, consider Gastrografin small bowel series follow-up Irregular urinary bladder wall thickening, differential would include cystitis, follow-up recommended
[2025-04-09] MEDS: ALBUTEROL RT 2.5 MG/0.5 ML NEBU 10 MG (07:48)
--- NOTE | 2025-04-09 08:05 | XR_ITS ---
Examination: Small bowel series AP abdomen 4 views Date and time: April 09, 2025 1725 hrs. Indications: Abdominal pain and distention this week, small bowel obstruction pattern on CT abdomen pelvis study this morning Technique And Findings: Orthotic Assistant AP abdomen supine single view Patient received 120 cc Gastrografin into the gastric tube with AP abdomen films 15 minutes, 1 hour, 2 hours Contrast remains in the stomach Distended small bowel loops Impression: High-grade mechanical small bowel obstruction pattern Recommend follow-up films 9:00 PM 11:00 PM 3:00 AM 7:00 AM
--- NOTE | 2025-04-09 08:06 | XR_ITS ---
Examination: AP chest single view Technique one AP portable semiupright chest single view Date and time: April 09, 2025, 0834 hrs., Comparison April 09, 2023 Indications: Chest pain shortness of breath today. Findings: Suspicious for early heart failure Mild enlargement cardiac contour Prominent vascular congestion including central vascular engorgement. No yulia pulmonary edema No lobar pneumonia. Prominent osteopenia with reversal shoulder arthroplasty and old appearing fracture deformities left clavicle but clinical correlation advised Impression: Suspicious for early heart failure Old appearing fracture deformities left clavicle but clinical correlation advised
[2025-04-09] MEDS: PIPER/TAZO INJ 4.5 GM in SODIUM CHLORIDE 0.9% (POP) 100 ML IV (08:44)
[2025-04-09] MEDS: ACETAMINOPHEN IVPB 1,000 MG/100 ML VIAL 250 MG IV ×2 (08:45→19:07)
[2025-04-09 08:57] LABS: Lactate (Lactic Acid) 4.8 mMol/L (0.4-2.0)
--- NOTE | 2025-04-09 09:12 | PC.NURSE ---
notified of lacitc acid 4.8 @[id number]
[2025-04-09 09:20] LABS: Partial Thromboplastin Time 25.6 Seconds (22.0-36.0)
[2025-04-09 09:38] LABS: Collection Type, Urine Catheter
[2025-04-09 09:57] LABS: Bilirubin,Urine Negative (Negative); Blood,Urine Negative (Negative); Clarity,Urine Clear (Clear/Hazy); Color,Urine Lt-Yellow (Lt Yel-Yel); Glucose, Urine 2+ (Negative); Ketones,Urine Negative (Negative); Leukocyte Esterase,Urine Negative (Negative); Nitrite,Urine Negative (Negative); PH,Urine 8.0 (5.0-7.0); Protein,Urine 3+ (Neg - Trace); RBC,Urine 2 /hpf (0-3); Specific Gravity,Urine 1.015 (1.001-1.035); Squamous Epithelial Cell,Urine 1 /hpf (0-5); Urobilinogen,Urine Negative mg/dL (0.0-1.0); WBC,Urine 2 /hpf (0-5)
[2025-04-09 09:58] LABS: Alanine Aminotransferase 21 U/L (10-49); Albumin, Serum 4.3 gm/dL (3.4-4.8); Albumin/Globulin Ratio 1.3 (1.2-2.2); Alkaline Phosphatase 150 U/L (46-116); Anion Gap 12 (7-16); Aspartate Amino Transferase 33 U/L (0-34); BUN/Creatinine Ratio 6 Ratio (12-20); Bilirubin,Total 0.6 mg/dL (0.3-1.2); Blood Urea Nitrogen 21 mg/dL (9-23); Calcium 10.1 mg/dL (8.3-10.6); Calcium (Corrected) 10.1 mg/dL (8.5-10.1); Carbon Dioxide 33.8 mMol/L (20.0-31.0); Chloride 96 mMol/L (98-107); Creatinine (Component) 3.7 mg/dL (0.6-1.3); Estimated Creatinine Clearance 12.8 mL/min (>60); Globulin 3.4 gm/dL (2.3-3.5); Glucose 111 mg/dL (74-106); Osmolality,Calculated 287 (275-295); Potassium 4.9 mMol/L (3.4-5.1); Procalcitonin 0.50 ng/ml (0.0-0.49); Sodium 142 mMol/L (136-145); Total Protein 7.7 gm/dL (5.7-8.2); eGFR 13 See Note
--- NOTE | 2025-04-09 10:33 | XR_ITS ---
Examination: AP chest single view Technique: AP portable semiupright chest single view Date and time: April 09, 2025, 1038 hrs. Indications: Orogastric tube placement Findings: Orogastric tube sidehole above the GE junction Mild prominence left ventricle with prominent vascular congestion Impression: Advance the orogastric tube 7 cm
--- NOTE | 2025-04-09 11:01 | PC.NURSE ---
ng tube moved down , is now at 50 at the nose
[2025-04-09] MEDS: MORPHINE SULF INJ 4 MG/ML VIAL 2 MG IVP (11:25)
[2025-04-09 11:26] LABS: Reflex Lactate? Y
--- NOTE | 2025-04-09 11:27 | XR_ITS ---
Examination: AP chest single view Technique one AP portable semiupright chest single view Date and time: April 09, 2025, 1131 hrs., Comparison April 09, 2025 1038 hrs. Indications: Reposition orogastric tube. Findings: Satisfactory position Orogastric tube, sidehole beyond the GE junction Mild enlargement cardiac contour with prominent vascular congestion Impression: Orogastric tube satisfactory position
[2025-04-09] MEDS: RINGERS LACTATED 500 ML 500 ML IV (11:37)
[2025-04-09 12:46] LABS: Lactate (Lactic Acid) 4.0 mMol/L (0.4-2.0)
[2025-04-09 13:05] LABS: Basophils # (Auto) 0.0 Thou/mm3 (0.0-0.2); Basophils % (Auto) 0 % (0-2.5); Eosinophils # (Auto) 0.1 Thou/mm3 (0.0-0.5); Eosinophils % (Auto) 1 % (0-10); Hematocrit 37.8 % (36.0-46.0); Hemoglobin 12.2 g/dL (12.0-16.0); Immature Granulocytes Auto 0.01 Thou/mm3 (0.00-0.00); Lymphocytes # (Auto) 1.1 Thou/mm3 (1.0-4.8); Lymphocytes % (Auto) 14 % (10-50); Mean Corpuscular HGB Conc 32.3 g/dl (31.0-37.0); Mean Corpuscular Hemoglobin 31.8 pg (25.0-35.0); Mean Corpuscular Volume 98 fL (80-100); Monocytes # (Auto) 0.9 Thou/mm3 (0.0-0.8); Monocytes % (Auto) 11 % (0-12); Neutrophils # (Auto) 5.9 Thou/mm3 (1.8-7.7); Neutrophils % (Auto) 73 % (37-80); Nucleated Red Blood Cell # 0.00 Thou/mm3 (0.00-0.00); Nucleated Red Blood Cell % 0 /100 WBC (0); Platelet Count 158 Thou/mm3 (140-440); RDW Standard Deviation 54.0 fL (36.4-46.3); Red Blood Count 3.84 Miln/mm3 (4.00-5.20); White Blood Count 8.1 Thou/mm3 (3.6-11.0)
--- NOTE | 2025-04-09 14:15 | ESHP_ITS ---
<Statement entered by Francisco Ren MD - 04/09/25 16:30> Nani Triplett is a 69-year-old female with a past medical history of ESRD on HD M/W/F (follows Dr. Gunderson), type 2 diabetes mellitus, hypertension, CVA with residual left-sided weakness who is admitted for small bowel obstruction. Patient endorsed nausea and vomiting last couple of days, last BM was yesterday but was small caliber, and does states she is currently passing gas. In ED, initial vital signs show BP of 181/89 and, other vital signs stable. Labs showed leukocytosis 12.5 but improved overnight, K 7.4 requiring urgent hemodialysis that patient underwent and repeat labs showed improvement. However, initial lactate 2.9 and peaked at 4.8 after hemodialysis but now downtrending. CT A/P showed SBO, atrophic kidneys, and a 5 mm pulmonary nodule in the right middle lobe. NG tube placed and small bowel series initiated, patient made n.p.o., and general surgery consulted. ----- Note reviewed and agree with care plan as documented. Please refer to the note below for further details. Plan discussed with attending physician Dr. Dajuan Ren MD PGY-2 Internal Medicine Documentation for date of: 04/09/25 HPI History of Present Illness History of present illness: HPI: Patient is a 69-year-old female with past medical history of end-stage renal disease on hemodialysis M/W/F, diabetes mellitus, hypertension, CVA with residual left-sided weakness, who was brought in to the ED by daughter on 04/09/2025 for worsening left-sided abdominal pain and swelling since yesterday. After her typical breakfast of 2 eggs, toasted bread, fruits, and pizza, patient had been unable to generate BM, when the help of a hospice nurse was called who administered enema and Dulcolax to no avail. Pain is rated 10/10 and felt constant. Patient admits to passing gas. She was able to have a small BM after given suppository at 2:30 PM yesterday, yet incomplete. Patient has had nausea and vomited. She is chronically constipated, but denies diarrhea, fever, chest pain. Patient has also had headache unresponsive to Tylenol. Patient states that she has not missed a dialysis session. Spoke to a title insurance sales representative from the hospice care where the patient receives benefits from. Phone [phone]. Patient was placed under hospice care after a stroke in July 2023. ED Course: At arrival, VSS BP 149/66, HR 93, RR 20, O2 95% on 3 L via NC. EKG showed Sinus rhythm, QTc 434 CBC: WBC 12.5, hemoglobin 13.4, hematocrit 41.6, platelet 221 Chemistry panel: Sodium 140 potassium 7.4, chloride 98, bicarb 32.7, BUN 53 creatinine 5.8 GFR 7 glucose 137 lactate 2.9 calcium 10.1 magnesium 2.6 AST ALT within normal limits alk phos 156, troponin negative less than 0.02, amylase 142 total protein albumin and Pro-Isaiah within normal limits KUB showed small bowel obstruction pattern. CTAP confirmed SBO, additionally, 5 mm pulmonary nodule right middle lobe, atrophic kidneys with significant renal scarring, irregular urinary bladder wall thickening. Due to patient's elevated potassium of 7.4 patient was given albuterol 10 mg x 1, 100 cc dextrose with 5 units of insulin, 40 mg Lasix, calcium gluconate 1 g and sodium bicarbonate 50 cc. Due to severe hyperkalemia case was discussed with patient's manager consumer insights Dr. Gunderson patient scheduled for emergent dialysis. Meds: Hydroxyzine, gabapentin, amlodipine, losartan, omeprazole, RevaVite, ropinirole, aspirin Allergy: SULFAMETHOXAZOLE AND TRIMETHOPRIM. PMHx: Diabetes, hypertension, hyperlipidemia, CVA with left-sided weakness, diabetic neuropathy and nephropathy. PSHx: Hysterectomy, shoulder surgery, carpal tunnel surgery and tunnel dialysis catheter placement. Fam Hx: Father from kidney disease. Older brother with history of SBO Soc Hx: [Denies smoking or using tobacco products]. [Denies drinking alcohol]. [Denies using marijuana, or illicit drugs]. Exam Vital Signs Temp Pulse Resp BP Pulse Ox O2 Del Method O2 Flow Rate 98.4 F 94 20 149/66 H 95 Nasal Cannula 3 04/09/25 10:52 04/09/25 11:40 04/09/25 11:40 04/09/25 11:40 04/09/25 11:40 04/09/25 11:40 04/09/25 11:40 Narrative Exam General: Alert and oriented x3, No apparent distress. Skin: Intact, Warm, no rashes. HEENT: Normocephalic, Atraumatic. Normal neck range of motion, Supple. Trachea midline. Respiratory: Lungs are clear to auscultation, Breath sounds are equal bilaterally with equal chest expansion. Cardiovascular: RRR, normal S1, S2, No murmurs. Distal pulses 2+ Abdomen: Abdomen non-distended, without erythema, or lesions. Diminished bowel sounds x 4 percussion dull. Palpation soft, tenderness in left lower quadrant. Distended loops of bowel noted in the left lower quadrant. no organomagely. Absent rigidity, guarding, or rebound. Musculoskeletal/Extremities: No erythema, swelling, tenderness of any joints. No edema of BLE. DP pulses +2/3 b/l. Full active ROM of all four extremities. Neurologic: NEURO: Oriented x3, cranial nerves II to XII grossly intact. Left upper extremity paralysis and loss of sensation residual effect of CVA in 2023 Psych: Thoughts linear and responses appropriate. Results: Labs 04/09/25 12:48 04/09/25 08:22 Labs: Short CBC 04/09/25 04/09/25 Range/Units 01:21 12:48 WBC 12.5 H 8.1 (3.6-11.0) Thou/mm3 Hgb 13.4 12.2 (12.0-16.0) g/dL Hct 41.6 37.8 (36.0-46.0) % Plt Count 221 158 D (140-440) Thou/mm3 BMP 04/09/25 04/09/25 01:21 08:22 Sodium 140 142 Potassium 7.4 H* 4.9 D Chloride 98 96 L Carbon Dioxide 32.7 H 33.8 H BUN 53 H 21 Creatinine 5.8 H* 3.7 H D Glucose 137 H 111 H Calcium 10.1 10.1 Cardiac Enzymes 04/09/25 Range/Units 01:21 Troponin I < 0.020 (0.0-0.045) ng/mL Liver Function 04/09/25 04/09/25 Range/Units 01:21 08:22 Total Bilirubin 0.3 0.6 (0.3-1.2) mg/dL AST 34 33 (0-34) U/L ALT 25 21 (10-49) U/L Alkaline Phosphatase 156 H 150 H (46-116) U/L Albumin 4.3 4.3 (3.4-4.8) gm/dL Urine 04/09/25 Range/Units 09:00 Urine Color Lt-Yellow (Lt Yel-Yel) Urine Clarity Clear (Clear/Hazy) Urine pH 8.0 H (5.0-7.0) Ur Specific [place] 1.015 (1.001-1.035) Urine Protein 3+ A (Neg - Trace) Urine Glucose (UA) 2+ A (Negative) Quality Measures Quality Measures none Advance care planning discussed with:: patient Medications Home Medications and Allergies Home Medications ?Medication ?Instructions ?Recorded ?Confirmed ?Type amlodipine 5 mg tablet 10 mg PO QAM 07/30/21 History sevelamer carbonate 800 mg tablet 800 mg PO TIDWM 07/2004/09/25 History hydralazine 50 mg tablet 100 mg PO TID 10/02/2104/09 History hydrocodone 10 mg-acetaminophen 5 tab PO QDAY PRN Pain 10/02/21 04/09/25 History 325 mg tablet albuterol sulfate 2.5 mg/3 mL 3 ml continuous nebuliza tion TID 12/04/21 04/09/25 History (0.083 %) solution for nebulization PRN WHEEZING lidocaine 5 % topical patch 1 patch topical QDAY 08/0104/09/25 History ropinirole 4 mg tablet 4 mg PO DAILY 08/01/2204/09 History gabapentin 300 mg capsule 300 mg PO 3XD 12/28/2304/09 History metoprolol succinate 100 mg 100 mg PO QMORNING 4 04/09/25 History tablet,extended release 24 hr Held on 04/09/25. Instructions: Doctor's Order omeprazole 40 mg capsule,delayed 40 mg PO QDAY 4 04/09/25 History release sodium zirconium cyclosilicate 10 10 g PO QDAY 4 04/09/25 History gram oral powder packet (Lokelma) vitamin B comp no.3-folic acid 1 1 tab PO QDAY 5 04/09/25 History mg-vit C 60 mg-biotin 300 mcg tablet ([facility]) Allergies Allergy/AdvReac Type Severity Reaction Status Date / Time sulfamethoxazole Allergy Unknown Swelling Verified 04/09/25 01:07 of Lip/Tongue/Throat trimethoprim Allergy Unknown Swelling Verified 04/09/25 01:07 of Lip/Tongue/Throat Visit Medications Acetaminophen (Acetaminophen 325 Mg Tablet) 650 mg PO Q6H PRN PRN Reason: PAIN OR FEVER > 100.4 Stop: 05/09/25 11:33 Dextrose (Dextrose 50%-Water Inj 50 Ml Syringe) 25 ml IV Q15MIN PRN PRN Reason: BG 50-70 responsive npo pt Stop: 05/09/25 02:32 Dextrose (Dextrose 50%-Water Inj 50 Ml Syringe) 50 ml IV Q15MIN PRN PRN Reason: BG <50 OR BG <70 & pt unresponsive Stop: 05/09/25 02:32 Glucagon (Glucagon Inj 1 Mg Vial) 1 mg IM Q15MIN PRN PRN Reason: BG <70, and no IV access Ondansetron HCl (Ondansetron Inj 2 Mg/Ml Inj 2 Ml) 4 mg IVP Q6H PRN; Protocol PRN Reason: NAUSEA OR VOMITING Stop: 05/09/25 11:33 Sodium Chloride (Sodium Chloride Rt Ree 0.9% 3 Ml Nebu) 3 ml INH PRN PRN PRN Reason: SOLN Stop: 05/09/25 02:36 Discontinued Medications Albuterol (Albuterol Rt 2.5 Mg/0.5 Ml Nebu) 10 mg INH X1 ONE Stop: 04/09/25 02:38 Last Admin: 04/09/25 02:46 Dose: 10 mg Calcium Gluconate (Calcium Gluconate 10% Inj 1 Gm/10 Ml Vial) 1 gm IV X1 ONE Stop: 04/09/25 02:36 Last Admin: 04/09/25 03:28 Dose: 1 gm Dextrose (Dextrose 50%-Water Inj 50 Ml Syringe) 100 ml IV X1 ONE Stop: 04/09/25 02:34 Last Admin: 04/09/25 03:18 Dose: 100 ml Furosemide (Furosemide Inj 10 Mg/Ml Vial 2 Ml) 40 mg IVP X1 ONE Stop: 04/09/25 02:34 Last Admin: 04/09/25 03:27 Dose: 40 mg Piperacillin Sod/Tazobactam (Sod 4.5 gm/ Sodium Chloride) 100 mls @ 200 mls/hr IV STAT STA; Protocol Stop: 04/09/25 08:34 Last Infusion: 04/09/25 10:16 Dose: Infused Acetaminophen (Ofirmev Inj) 1,000 mg in 100 mls @ 250 mls/hr IV STAT STA Stop: 04/09/25 08:32 Last Infusion: 04/09/25 10:16 Dose: Infused Lactated Ringer's (Lactated Ringers) 500 mls @ 500 mls/hr IV .Q1H ONE Stop: 04/09/25 12:20 Last Infusion: 04/09/25 12:44 Dose: Infused Insulin Human Regular (Insulin Hum Regular 1 Unit/0.01 Ml (Per Unit)) 5 unit IV X1 ONE Stop: 04/09/25 02:34 Last Admin: 04/09/25 03:18 Dose: 5 unit Morphine Sulfate (Morphine Sulf Inj 4 Mg/Ml Vial) 2 mg IVP STAT STA Stop: 04/09/25 11:15 Last Admin: 04/09/25 11:25 Dose: 2 mg Ondansetron HCl (Ondansetron Inj 2 Mg/Ml Inj 2 Ml) 4 mg IVP X1 ONE; Protocol Stop: 04/09/25 01:13 Last Admin: 04/09/25 01:28 Dose: 4 mg Sodium Bicarbonate (Sodium Bicarb Inj 8.4% Syr 50 Ml Syringe) 50 ml IV X1 ONE Stop: 04/09/25 02:34 Last Admin: 04/09/25 03:34 Dose: 50 ml Assessment & Plan Plan atjeffrey is a 69-year-old female with past medical history of end-stage renal disease on hemodialysis M/W/F, diabetes mellitus, hypertension, CVA with residual left-sided weakness, who was brought in to the ED by daughter on 04/09/2025 for worsening left-sided abdominal pain and swelling the day before. Patient admitted for inpatient workup and management of SBO as found on imaging. #Small bowel obstruction, complete versus partial # Lactic acidosis, improving Patient coming in with failure to generate bowel movement, worsening abdominal pain rated 10/10, and distended loops of bowel and diminished bowel sounds on physical exam. Patient admitted to ability to pass flatus. KUB showed small bowel obstruction pattern. CTAP confirmed SBO, additionally, 5 mm pulmonary nodule right middle lobe, atrophic kidneys with significant renal scarring, irregular urinary bladder wall thickening. Initial lactate 2.9 and peaked at 4.8 after hemodialysis but now downtrending. ?Initiated antibiotics for prevention of transmigration possible enteritis/colitis Plan: ? Patient n.p.o., mouth swabs to quench thirst ? Ordered small bowel series ? Flagyl IV 500 mg every 8 hour ? Rocephin 1 g IV daily ? Surgery Dr Jack consulted, appreciate recs ?Spoke to surgeon Dr. Jack who said will evaluate surgical indication for management as soon as abdominal series are completed and demonstrate SBO pattern ?Acetaminophen IV 1000 mg every 6 hour as needed ? Will continue IV fluids. ? Keep patient n.p.o. regular nasogastric tube after small bowel series study is complete. #History of ESRD on HD On scheduled hemodialysis Thursday, followed by Dr. Gunderson in [place], ? Nephrology consulted, appreciate recs ? Resume home meds after med rec reconciliation and general surgery recommendations # Hyperkalemia Due to elevated potassium of 7.4, patient was given albuterol 10mg x1, 100cc dextrose with 5u of insulin, 40mg Lasix, calcium gluconate 1g and sodium bicarbonate 50cc. ?Patient received emergent dialysis where 1 L of fluid was removed, Repeat potassium check WNL 4.9. #History of diabetes mellitus History of diabetes mellitus for more than 2 decades, on insulin. ? Follow A1c ? Insulin regular sliding scale Health Maintenance: Disposition: Med/tele, pending abdominal series results to confirm SBO. Diet: N.p.o. PPx DVT: Sequential compression devices PPx GI: [] Code Status: full This case was discussed with my attending physician, Dr. Graff, and senior resident, Dr Mikal Winston. Lori Yuen, DO PGY I
[2025-04-09 14:46] LABS: C-Reactive Protein 4.7 mg/dL (0.0-0.9)
[2025-04-09 15:31] LABS: Reflex Lactate? Y
[2025-04-09 16:14] LABS: Lactic Acid, 3 HR 3.4 mMol/L (0.4-2.0)
[2025-04-09] MEDS: cefTRIAXone/D5w 1gm IV premix 1 GM/50 ML BAG IV (16:33)
[2025-04-09] MEDS: metroNIDAZOLE/NS 500 MG IVPB 500 MG/100 ML BAG 200 MG IV ×2 (16:33→21:51)
--- NOTE | 2025-04-09 21:30 | XR_ITS ---
Examination: Abdomen AP single view Technique: AP portable supine abdomen, single view Exam date and time: Examination: Abdomen AP single view Technique one AP portable supine abdomen single view Date and time: April 09, 2025, 2125 hrs. Indications: Abdominal distention this week, forearm delayed film small bowel series Findings: Markedly distended small bowel loops Impression: Prominent small bowel obstruction
--- NOTE | 2025-04-09 23:13 | XR_ITS ---
Examination: AP chest single view Technique one AP portable semiupright chest single view Date and time: April 09, 2025 11:33 PM, comparison April 09, 2025 11:31 AM Indications: Reposition tracheal tube Findings: Orogastric tube in satisfactory position, tip in the stomach Minor prominence of ventricle Ectatic thoracic aorta Moderate vascular congestion Severe osteopenia, reversal shoulder arthroplasty Impression: Orogastric tube satisfactory position
--- NOTE | 2025-04-09 23:30 | XR_ITS ---
Examination: Abdomen AP single view Technique: AP portable supine abdomen, single view Exam date and time: April 09, 2025, 11:30 PM Indications: 6 hour delayed film post small bowel series today, abdominal pain and distention Findings: Partially contrast distended small bowel loops measuring up to 5 cm Impression: High-grade mechanical small bowel obstruction Recommend follow-up films 3 :00 7:00 AM
[2025-04-10] VITALS (72 sets, daily range): BP systolic 75–147; BP diastolic 46–90; PULSE 100–129; RESP 12–28; TEMP 35.8–37.2; O2SAT 91–100; BMI 28.0
[2025-04-10] MEDS: ACETAMINOPHEN IVPB 1,000 MG/100 ML VIAL 250 MG IV ×3 (00:34→14:01)
--- NOTE | 2025-04-10 01:45 | PC.NURSE ---
patient started vomiting bile in small amounts with nausea. I gave zofran. patient began vomitting large amount of bile. I called and notified Dr. Goss and he wanted to hook back up to low intermittent suction. after 500 was suctioned out, patient was comfortable and able to sleep.
--- NOTE | 2025-04-10 03:30 | XR_ITS ---
Examination: Abdomen AP single view Technique: AP portable supine abdomen, single view Exam date and time: April 10, 2025 0333 hrs. Indications: Abdominal distention this week, 10 hour delayed film post small bowel series yesterday Findings: Air and contrast distended small bowel loops are noted Impression: Small bowel obstruction pattern
--- NOTE | 2025-04-10 04:19 | PC.NURSE ---
NOTIFIED DR. LAN THAT PATIENT'S HR SUSTAINING IN 130'S. I FOUND PATIENT'S NG SUCTION WAS UNPLUGGED AND PATIENT WAS HAD DISCOMFORT IN STOMACH. I FIXED SUCTION AND 700ML WAS SUCTIONED FROM STOMACH. PATIENT WENT TO SLEEP AFTER AND I WILL CALL DR LAN BACK IN 30 IF HR DOES NOT DECREASE WITH REST.
--- NOTE | 2025-04-10 04:47 | EKG_ITS ---
[facility] Test Date: 2025-04-10 Pat Name: JO[facility] KRAUSE [facility] Manifold Builder: CESAR : 1955 Requested By: Lori Patel Order Number: [id number] Reading MD: Lori Patel Measurements Intervals [place] Rate: 133 P: 67 AL: 133 QRS: -22 QRSD: 84 T: 73 QT: 296 QTc: 440 Interpretive Statements SINUS TACHYCARDIA BORDERLINE LEFT AXIS DEVIATION MODERATE ST DEPRESSION Compared to ECG 04/09/2025 01:39:43 ST (T wave) deviation now present Sinus rhythm no longer present /store/S0/[id number]
[2025-04-10 05:59] LABS: Glucose Estimated Average 94 mg/dL (80-131); Hemoglobin A1C 4.9 % Hgb (4.8-6.0)
[2025-04-10] MEDS: metroNIDAZOLE/NS 500 MG IVPB 500 MG/100 ML BAG 200 MG IV ×3 (06:03→22:04)
[2025-04-10 06:17] LABS: Alanine Aminotransferase 19 U/L (10-49); Albumin, Serum 4.1 gm/dL (3.4-4.8); Albumin/Globulin Ratio 1.1 (1.2-2.2); Alkaline Phosphatase 145 U/L (46-116); Anion Gap 14 (7-16); Aspartate Amino Transferase 33 U/L (0-34); BUN/Creatinine Ratio 6 Ratio (12-20); Bilirubin,Total 0.9 mg/dL (0.3-1.2); Blood Urea Nitrogen 32 mg/dL (9-23); Calcium 9.8 mg/dL (8.3-10.6); Calcium (Corrected) 9.8 mg/dL (8.5-10.1); Carbon Dioxide 37.0 mMol/L (20.0-31.0); Chloride 87 mMol/L (98-107); Creatinine (Component) 5.7 mg/dL (0.6-1.3); Estimated Creatinine Clearance 8.3 mL/min (>60); Globulin 3.6 gm/dL (2.3-3.5); Glucose 112 mg/dL (74-106); Magnesium 2.2 mg/dL (1.6-2.6); Osmolality,Calculated 283 (275-295); Phosphorous 5.0 mg/dL (2.4-5.1); Potassium 5.8 mMol/L (3.4-5.1); Sodium 138 mMol/L (136-145); Thyroid Stimulating Hormone 1.42 uIU/mL (0.55-4.78); Total Protein 7.7 gm/dL (5.7-8.2); eGFR 8 See Note
--- NOTE | 2025-04-10 07:30 | XR_ITS ---
Examination: Abdomen AP single view Technique: AP portable supine abdomen, single view Exam date and time: April 10, 2025 0720 hours INDICATIONS: Abdominal pain and distention this week. 14 hour delayed film post small bowel series FINDINGS: Air distended small bowel loops IMPRESSION: Small bowel obstruction pattern No further films are needed
[2025-04-10] MEDS: MIDODRINE 5 MG TABLET 10 MG PO (07:59)
[2025-04-10] MEDS: ALBUMIN HUMAN 25% IVPB 25 GM/100 ML BTL IV ×2 (08:00→12:45)
[2025-04-10 08:44] LABS: Hepatitis A Antibody IgM Non Reactive (Non React); Hepatitis B Core Antibody IgM Non Reactive (Non React); Hepatitis B Surface Ab NonReact(Not Immune) (Immune); Hepatitis B Surface Antigen Non Reactive (Non React)
[2025-04-10] MEDS: METOCLOPRAMIDE INJ 5 MG/ML VIAL 2 ML 10 MG IVP ×3 (09:41→23:40)
--- NOTE | 2025-04-10 09:54 | CHAP ---
Responded to Rapid Response from 09:54 (originally room #309). Patient was moved to ICU #254.
--- NOTE | 2025-04-10 09:56 | XR_ITS ---
Examination: AP chest single view Technique one AP portable supine chest single view Date and time: April 10, 2025 10:20 AM, comparison 04/09/2025 INDICATIONS: Hypoxia shortness of breath today. FINDINGS: Interval mild to moderate bibasilar pneumonia Orogastric tube in satisfactory position. Normal heart size. Prominent osteopenia. IMPRESSION: Interval mild to moderate bibasilar pneumonia
--- NOTE | 2025-04-10 09:59 | EKG_ITS ---
[facility] Test Date: 2025-04-10 Pat Name: JOSE KRAUSE Department: Room: S278A Gender: Female Drier Operator: EMILIANO : 1955 Requested By: Francisco Ren Order Number: [id number] Reading MD: Francisco Ren Measurements Intervals [place] Rate: 103 P: 48 [place]: 136 QRS: -8 QRSD: 86 T: 69 QT: 341 QTc: 448 Interpretive Statements SINUS TACHYCARDIA LEFT VENTRICULAR HYPERTROPHY AND ST-T CHANGE Compared to ECG 04/10/2025 05:03:55 Left ventricular hypertrophy now present ST (T wave) deviation still present /store/S0/[id number]
[2025-04-10 10:53] LABS: Ammonia 35 uMol/L (11-32)
[2025-04-10 11:11] LABS: Base Excess 16 (-3-3); HCO3 42 mEq/L (20-26); Inspired O2, VO2 Liters 10 L/min; O2 Saturation 96 % (91-98); PCO2 60 mmHg (32.0-48.0); PO2 79 mmHg (83-108); pH, Arterial 7.45 (7.35-7.45)
[2025-04-10 11:13] LABS: Puncture Site Right Femoral
--- NOTE | 2025-04-10 11:16 | ESCONSULT_ITS ---
<Statement entered by Oscar Rowe MD - 04/11/25 07:52> I saw and examined patient personally and supervised PGY 1 resident, Dr. Kelley with formulating a management plan. I agree with the documentation with the exceptions as listed below. Ms. Triplett is a 69-year-old female with past medical history of ESRD on HD M/W/F, diabetes mellitus, hypertension, CVA with residual left-sided weakness, and left shoulder surgery who presented to [facility] ([facility] emergency department in the early childhood associate of 04/09 with a chief complaint of nausea, vomiting, and abdominal pain and was eventually admitted for SBO. Patient had a rapid response during dialysis for hypoxia with saturations in the 60s. After bagging the patient and switching the pulse ox to her air from finger saturations improved to 98%. Patient was subsequently upgraded to the ICU for closer monitoring due to change in mentation from GCS 15/15 to approximately 10/11 on. Problem list: Acute metabolic encephalopathy CVA with residual left-sided weakness Small bowel obstruction ESRD on HD lactic acidosis?resolved As per general surgery recommendations, NG tube on Low continuous suction. Patient may also need repeat small bowel series tomorrow. CT abdomen and chest with contrast ordered To rule out pulmonary embolism as possible source of hypoxia and assess for bowel ischemia. Patient mentation continues to wax and wane throughout today, however no focal deficits. Plan of care discussed with Attending Dr. Leandro Rowe MD PGY 2 Disclaimer: This note was dictated by speech recognition. Minor errors in top and seat cover fitter may be present due to voice recognition software. HPI Data of Consult Requesting Physician: Arnol Graff MD Admitting Provider: Arnol Graff MD Attending Provider: Arnol Graff MD Primary Care Provider: Anita Bobby Consult Narrative History of present illness: Ms. Triplett is a 69-year-old female with past medical history of ESRD on HD M/W/F, diabetes mellitus, hypertension, CVA with residual left-sided weakness, and left shoulder surgery who presented to [facility] ([facility] emergency department in the early childhood associate of 04/09 with a chief complaint of nausea, vomiting, and abdominal pain. Patient reported that her symptoms started earlier in the evening and complained of uncontrollable nausea and vomiting with some episodes of diarrhea; she reported passing gas and having a regular bowel movement earlier that day. She endorsed tenderness to palpation of the left abdomen but denied any other symptoms. In the ED, vitals showed: BP 181/89 HR 87 RR 20 Temp 98.1 SpO2 95% on room air Labs showed leukocytosis 12.5 but improved overnight, potassium 7.4 requiring urgent HD that patient underwent and repeat labs showed improvement. However, patient's lactate actually increased to 4.8 after hemodialysis which prompted CTAP (showed SBO, atrophic kidneys, and a 5 mm pulmonary nodule in the right middle lobe), placement of NG tube, initiation of small bowel series, start of NPO status, and general surgery consult. The next day (today, 04/10), a rapid response was called after patient became altered and hypoxic while receiving HD and ICU was consulted. At the time, patient's SpO2 readings ranged between mid 80s and low 70s and this did not change with [id number] ventilation. An oral airway was also placed but patient began actively trying to push the oral airway out of her mouth with her tongue. The pulse ox on the patient was switched from her fingers to her ear and SpO2 began to read in the mid to high 90s and her BP at this point had also improved from the 90s to the 120s. However, she was still altered which prompted her to be admitted to the ICU for further management. cc:: cc: Arnol Graff MD Review of Systems Review of Systems ROS Unobtainable: unobtainable due to mental status Exam Vital Signs Temp Pulse Resp BP Pulse Ox O2 Del Method O2 Flow Rate 97.4 F 117 H 20 93/50 L 95 Nasal Cannula 3 04/10/25 08:00 04/10/25 08:00 04/10/25 08:00 04/10/25 08:00 04/10/25 08:00 04/10/25 08:00 04/10/25 08:00 Narrative Exam Physical Exam: General: Obtunded, somnolent female with GCS 10 (M6, V1, E3) who responds to pain. Skin: Warm, dry, intact, no obvious rash. Head: Normocephalic, atraumatic. Eyes: PERRLA. Could not assess if EOMI. Anicteric. Ears: No ear discharge. Not responding to her name being called. Nose: No nasal discharge. Mouth/Throat: Poor dentition. Oral mucosa dry. No obvious lesions in oropharynx. Cardiovascular: Regular rate and rhythm, no murmur, no JVD or carotid bruits. +S1/S2. Respiratory: Bilateral lungs seem clear to auscultation but are bit difficult to hear. Respirations unlabored, no crackles, no wheezing. No accessory muscle use. Gastrointestinal: Soft, non-distended. Patient does not seem to recoil in pain upon palpation of abdomen. No palpable masses. No guarding or rebound tenderness. Hypoactive bowel sounds when listening at RLQ. Extremities: AV fistula at right upper extremity noted. No edema, no cyanosis, no clubbing. 2+ radial pulse bilaterally, 2+ posterior tibial pulse bilaterally. Results Labs 04/10/25 11:48 04/10/25 21:07 Labs: Short CBC 04/09/25 Range/Units 12:48 WBC 8.1 (3.6-11.0) Thou/mm3 Hgb 12.2 (12.0-16.0) g/dL Hct 37.8 (36.0-46.0) % Plt Count 158 D (140-440) Thou/mm3 BMP 04/10/25 05:21 Sodium 138 Potassium 5.8 H D Chloride 87 L Carbon Dioxide 37.0 H BUN 32 H Creatinine 5.7 H* D Glucose 112 H Calcium 9.8 Liver Function 04/10/25 Range/Units 05:21 Total Bilirubin 0.9 (0.3-1.2) mg/dL AST 33 (0-34) U/L ALT 19 (10-49) U/L Alkaline Phosphatase 145 H (46-116) U/L Albumin 4.1 (3.4-4.8) gm/dL ABG Interpretation ABG results: 04/10/25 11:00 ABG pH 7.45 ABG pCO2 60 H ABG pO2 79 L ABG HCO3 42 H ABG O2 Saturation 96 ABG Base Excess 16 H Quality Measures Quality Measures none Advance care planning discussed with:: patient Medications Home Medications and Allergies Home Medications ?Medication ?Instructions ?Recorded ?Confirmed ?Type amlodipine 5 mg tablet 10 mg PO QAM 07/30/21 History sevelamer carbonate 800 mg tablet 800 mg PO TIDWM 07/2004/09/25 History hydralazine 50 mg tablet 100 mg PO TID 10/02/2104/09 History hydrocodone 10 mg-acetaminophen 5 tab PO QDAY PRN Pain 10/02/21 04/09/25 History 325 mg tablet albuterol sulfate 2.5 mg/3 mL 3 ml continuous nebuliza tion TID 12/04/21 04/09/25 History (0.083 %) solution for nebulization PRN WHEEZING lidocaine 5 % topical patch 1 patch topical QDAY 08/0104/09/25 History ropinirole 4 mg tablet 4 mg PO DAILY 08/01/2204/09 History gabapentin 300 mg capsule 300 mg PO 3XD 12/28/2304/09 History metoprolol succinate 100 mg 100 mg PO QMORNING 4 04/09/25 History tablet,extended release 24 hr Held on 04/09/25. Instructions: Doctor's Order omeprazole 40 mg capsule,delayed 40 mg PO QDAY 4 04/09/25 History release sodium zirconium cyclosilicate 10 10 g PO QDAY 4 04/09/25 History gram oral powder packet (Lokelma) vitamin B comp no.3-folic acid 1 1 tab PO QDAY 5 04/09/25 History mg-vit C 60 mg-biotin 300 mcg tablet ([facility]) Allergies Allergy/AdvReac Type Severity Reaction Status Date / Time sulfamethoxazole Allergy Unknown Swelling Verified 04/09/25 01:07 of Lip/Tongue/Throat trimethoprim Allergy Unknown Swelling Verified 04/09/25 01:07 of Lip/Tongue/Throat Visit Medications Acetaminophen (Acetaminophen 325 Mg Tablet) 650 mg PO Q6H PRN On Hold: 04/09/25 16:38 Comment: IV APAP ACTIVE PRN Reason: PAIN OR FEVER > 100.4 Stop: 05/09/25 11:33 Dextrose (Dextrose 50%-Water Inj 50 Ml Syringe) 25 ml IV Q15MIN PRN PRN Reason: BG 50-70 responsive npo pt Stop: 05/09/25 02:32 Dextrose (Dextrose 50%-Water Inj 50 Ml Syringe) 50 ml IV Q15MIN PRN PRN Reason: BG <50 OR BG <70 & pt unresponsive Stop: 05/09/25 02:32 Glucagon (Glucagon Inj 1 Mg Vial) 1 mg IM Q15MIN PRN PRN Reason: BG <70, and no IV access Ceftriaxone Sodium/Dextrose (Rocephin/D5w 1gm Iv Premix) 1 gm in 50 mls @ 100 mls/hr IV QDAY@1400 NADEEM Stop: 04/16/25 16:11 Last Infusion: 04/09/25 19:34 Dose: Infused Metronidazole (Flagyl 500 Mg Iv) 500 mg in 100 mls @ 200 mls/hr IV Q8HR NADEEM Stop: 04/16/25 16:12 Last Admin: 04/10/25 06:03 Dose: 200 mls/hr Acetaminophen (Ofirmev Inj) 1,000 mg in 100 mls @ 250 mls/hr IV Q6HR NADEEM Stop: 04/10/25 12:23 Last Infusion: 04/10/25 06:02 Dose: Infused Albumin Human (Albuminar-25 Ivpb) 25 gm in 100 mls @ 100 mls/hr IV PRN PRN PRN Reason: DIALYSIS Last Admin: 04/10/25 08:00 Dose: 100 mls/hr Insulin Human Lispro (Insulin Lispro (Admelog) 1 Unit/0.01 Ml Unit) 0 unit SC Q6HR NADEEM; Protocol Stop: 05/09/25 17:59 Last Admin: 04/10/25 06:00 Dose: Not Given Lidocaine (Lidocaine 5% 1 Patch) 1 patch TOP UD PRN; Protocol PRN Reason: PAIN Stop: 05/09/25 18:49 Metoclopramide HCl (Metoclopramide Inj 5 Mg/Ml Vial 2 Ml) 10 mg IVP Q6HR NADEEM; Protocol Stop: 05/10/25 08:59 Last Admin: 04/10/25 09:41 Dose: 10 mg Midodrine (Midodrine 5 Mg Tablet) 10 mg PO TID PRN PRN Reason: Hypotension Stop: 05/10/25 13:59 Last Admin: 04/10/25 07:59 Dose: 10 mg Ondansetron HCl (Ondansetron Inj 2 Mg/Ml Inj 2 Ml) 4 mg IVP Q6H PRN; Protocol PRN Reason: NAUSEA OR VOMITING Stop: 05/09/25 11:33 Last Admin: 04/09/25 21:51 Dose: 4 mg Sodium Chloride (Sodium Chloride Rt Ree 0.9% 3 Ml Nebu) 3 ml INH PRN PRN PRN Reason: SOLN Stop: 05/09/25 02:36 Discontinued Medications Albuterol (Albuterol Rt 2.5 Mg/0.5 Ml Nebu) 10 mg INH X1 ONE Stop: 04/09/25 02:38 Last Admin: 04/09/25 02:46 Dose: 10 mg Bisacodyl (Bisacodyl 10 Mg Supp) 10 mg GA X1 ONE; Protocol Stop: 04/10/25 08:47 Calcium Gluconate (Calcium Gluconate 10% Inj 1 Gm/10 Ml Vial) 1 gm IV X1 ONE Stop: 04/09/25 02:36 Last Admin: 04/09/25 03:28 Dose: 1 gm Dextrose (Dextrose 50%-Water Inj 50 Ml Syringe) 100 ml IV X1 ONE Stop: 04/09/25 02:34 Last Admin: 04/09/25 03:18 Dose: 100 ml Furosemide (Furosemide Inj 10 Mg/Ml Vial 2 Ml) 40 mg IVP X1 ONE Stop: 04/09/25 02:34 Last Admin: 04/09/25 03:27 Dose: 40 mg Piperacillin Sod/Tazobactam (Sod 4.5 gm/ Sodium Chloride) 100 mls @ 200 mls/hr IV STAT STA; Protocol Stop: 04/09/25 08:34 Last Infusion: 04/09/25 10:16 Dose: Infused Acetaminophen (Ofirmev Inj) 1,000 mg in 100 mls @ 250 mls/hr IV STAT STA Stop: 04/09/25 08:32 Last Infusion: 04/09/25 10:16 Dose: Infused Lactated Ringer's (Lactated Ringers) 500 mls @ 500 mls/hr IV .Q1H ONE Stop: 04/09/25 12:20 Last Infusion: 04/09/25 12:44 Dose: Infused Influenza Virus Vaccine Quadrival (Influenza Virus Quadrivalent 0.5 Ml Syringe) 0.5 ml IMi .ONCE ONE Stop: 04/09/25 16:54 Insulin Human Regular (Insulin Hum Regular 1 Unit/0.01 Ml (Per Unit)) 5 unit IV X1 ONE Stop: 04/09/25 02:34 Last Admin: 04/09/25 03:18 Dose: 5 unit Morphine Sulfate (Morphine Sulf Inj 4 Mg/Ml Vial) 2 mg IVP STAT STA Stop: 04/09/25 11:15 Last Admin: 04/09/25 11:25 Dose: 2 mg Ondansetron HCl (Ondansetron Inj 2 Mg/Ml Inj 2 Ml) 4 mg IVP X1 ONE; Protocol Stop: 04/09/25 01:13 Last Admin: 04/09/25 01:28 Dose: 4 mg Sodium Bicarbonate (Sodium Bicarb Inj 8.4% Syr 50 Ml Syringe) 50 ml IV X1 ONE Stop: 04/09/25 02:34 Last Admin: 04/09/25 03:34 Dose: 50 ml Assessment & Plan Plan Ms. Triplett is a 69-year-old female with past medical history of ESRD on HD M/W/F, diabetes mellitus, hypertension, CVA with residual left-sided weakness, and left shoulder surgery who presented to [facility] ([facility] emergency department in the early childhood associate of 04/09 with a chief complaint of nausea, vomiting, and abdominal pain and was eventually admitted for SBO. The next day (today, 04/10), a rapid response was called after patient became altered and hypoxic while receiving HD and ICU was consulted. At the time, patient's SpO2 readings ranged between mid 80s and low 70s and this did not change with [id number] ventilation. An oral airway was also placed but patient began actively trying to push the oral airway out of her mouth with her tongue. The pulse ox on the patient was switched from her fingers to her ear and SpO2 began to read in the mid to high 90s and her BP at this point had also improved from the 90s to the 120s. However, she was still altered which prompted her to be admitted to the ICU for further management. NEURO #Altered mental status At time of interview, patient is unresponsive to voice but does respond to sternal rub. She has residual deficits from a prior CVA which are L sided facial droop and LUE weakness Rx: -Continue to monitor CARDIO #Hypotension Patient's BPs have run on the slow side this admission and hypotension occurred during the rapid response preceding ICU admission as well that seemed to respond to albumin Dx: -At time of interview, monitor read was 79/65 Rx: -Patient will be receiving CRRT/HD as per nephrology recommendations with albumin as appropriate PULM #Hypoxemia Patient had a rapid response called while she was receiving HD due to SpO2 desaturation but it is unclear whether this was due to poor perfusion 2/2 hypotension or true hypoxia 2/2 primary respiratory issue DDx: pulmonary embolism Dx: -CXR showed mild perihilar infiltrate -ABG showed normal pH with chronic respiratory acidosis and compensatory metabolic alkalosis Rx: -Follow up on chest CTA to evaluate for possible pulmonary embolism RRx: -She is currently stable on nasal cannula and appears to have improved GI #SBO Dx: -Small bowel series with gastrografin showed small bowel obstruction Rx: -On ceftriaxone and metronidazole -Nasogastric tube with low-intermittent suctioning -Surgery is following NEPHRO #ESRD on HD (M/W/F, follows Dr. Gunderson) #Hyperkalemia Rx: -Will receive HD for her ESRD status and also correct patient's hyperkalemia #Metabolic alkalosis Patient appears to have both a compensatory alkalosis for chronic respiratory acidosis as well as a metabolic alkalosis from H+ loss from NG tube suctioning #Lactic acidosis (resolving) Patient also has an elevated lactic acid level of 6.3 that has since downtrended to 1.5 There was concern for abdominal source given her bowel obstruction but patient does not seem to be showing any signs of acute mesenteric ischemia URO #No active problems HEME #No active problems ENDO #T2DM Rx: -Insulin sliding scale ID #No active problems MSK #No active problems SKIN #No active problems Disposition: DVT prophylaxis: SubQ Heparin 5,000 U q8HR GI prophylaxis: None Diet: NPO Sahu: Present Lines: Peripheral IV, Central IV Antibiotics: IV ceftriaxone 1 gm qD (04/09-04/16), IV metronidazole 500 mg q8HR (04/09-04/16) CODE STATUS: FULL Patient plan of care was discussed with the attending combine mechanic, Dr. Leandro Kelley, DO Internal Medicine, PGY-1
--- NOTE | 2025-04-10 11:22 | PD.RESEVENT ---
Documentation for date of: 04/10/25 Event Note Event Note: At 9:55 AM, rapid response was called for low oxygen saturations O2 88% on pulse ox monitor. Patient was just started on hemodialysis following Thursday schedule. Patient had been nauseous and vomited overnight and the NG tube had just been withdrawn. On physical exam, patient initially noted to have unclear breath sounds centrally, and on the spot suctioning, removed about 3mL of normal pharyngeal secretions, as patient had been n.p.o. Patient demonstrated decreased breath sounds over the left lower lobe. BP initially stable at 128/60. As patient started to desat into mid 70s, ICU team was notified and bag valve ventilation started which improved oxygen saturation to mid 80s. Patient was somnolent, and had received Reglan for stimulation of bowel movement in the context of bowel obstruction earlier. Alert and oriented to self only and so that is a difficult echo because previously you know he ate it he tried to point across to me that have the patient should be kept n.p.o. for for the risk of rupture text but I just want to save up to say because okay I guess I just open discharging so what about the blood cultures GCS 10. Orders placed for EKG, ABG, and chest x-ray as well as serum ammonia level.
[2025-04-10 11:55] LABS: Lactate (Lactic Acid) 3.7 mMol/L (0.4-2.0)
[2025-04-10 12:01] LABS: Basophils # (Auto) 0.0 Thou/mm3 (0.0-0.2); Basophils % (Auto) 0 % (0-2.5); Eosinophils # (Auto) 0.0 Thou/mm3 (0.0-0.5); Eosinophils % (Auto) 0 % (0-10); Hematocrit 36.8 % (36.0-46.0); Hemoglobin 11.8 g/dL (12.0-16.0); Immature Granulocytes Auto 0.05 Thou/mm3 (0.00-0.00); Lymphocytes # (Auto) 0.9 Thou/mm3 (1.0-4.8); Lymphocytes % (Auto) 10 % (10-50); Mean Corpuscular HGB Conc 32.1 g/dl (31.0-37.0); Mean Corpuscular Hemoglobin 32.2 pg (25.0-35.0); Mean Corpuscular Volume 100 fL (80-100); Monocytes # (Auto) 0.5 Thou/mm3 (0.0-0.8); Monocytes % (Auto) 5 % (0-12); Neutrophils # (Auto) 7.8 Thou/mm3 (1.8-7.7); Neutrophils % (Auto) 84 % (37-80); Nucleated Red Blood Cell # 0.00 Thou/mm3 (0.00-0.00); Nucleated Red Blood Cell % 0 /100 WBC (0); Platelet Count 194 Thou/mm3 (140-440); RDW Standard Deviation 55.4 fL (36.4-46.3); Red Blood Count 3.67 Miln/mm3 (4.00-5.20); White Blood Count 9.3 Thou/mm3 (3.6-11.0)
--- NOTE | 2025-04-10 12:12 | PD.NEPHCONS ---
History of Present Illness Data of Consult Requesting Physician: Vilma Reeves MD Primary Care Provider: Anita Bobby Consult Narrative History of present illness: 69-year-old female with a past medical history of ESRD on HD M/W/F , type 2 diabetes mellitus, hypertension, CVA with residual left-sided weakness who is admitted for small bowel obstruction. Patient endorsed nausea and vomiting last couple of days, last BM was yesterday but was small caliber, and does states she is currently passing gas. In ED, initial vital signs show BP of 181/89 and, other vital signs stable. Labs showed leukocytosis 12.5 but improved overnight, K 7.4 requiring urgent hemodialysis that patient underwent and repeat labs showed improvement. Today pt was hypotensive avd altered and desaturated and bought to ICU cc:: cc: Vilma Reeves MD Review of Systems Review of Systems ROS Unobtainable: unobtainable due to mental status Meds Home Medications and Allergies Home Medications ?Medication ?Instructions ?Recorded ?Confirmed ?Type amlodipine 5 mg tablet 10 mg PO QAM 07/30/21 04/09/25 History sevelamer carbonate 800 mg tablet 800 mg PO TIDWM 07/30/21 04/09/25 History hydralazine 50 mg tablet 100 mg PO TID 10/02/21 04/09/25 History hydrocodone 10 mg-acetaminophen 5 tab PO QDAY PRN Pain 10/02/21 04/09/25 History 325 mg tablet albuterol sulfate 2.5 mg/3 mL 3 ml continuous nebulization TID 12/04/21 04/09/25 History (0.083 %) solution for nebulization PRN WHEEZING lidocaine 5 % topical patch 1 patch topical QDAY 08/01/22 04/09/25 History ropinirole 4 mg tablet 4 mg PO DAILY 08/01/22 04/09/25 History gabapentin 300 mg capsule 300 mg PO 3XD 12/28/23 04/09/25 History metoprolol succinate 100 mg 100 mg PO QMORNING 12/28/23 04/09/25 History tablet,extended release 24 hr Held on 04/09/25. Instructions: Doctor's Order omeprazole 40 mg capsule,delayed 40 mg PO QDAY 12/28/23 04/09/25 History release sodium zirconium cyclosilicate 10 10 g PO QDAY 12/28/23 04/09/25 History gram oral powder packet (Lokelma) vitamin B comp no.3-folic acid 1 1 tab PO QDAY 04/09/25 04/09/25 History mg-vit C 60 mg-biotin 300 mcg tablet ([facility]) Allergies Allergy/AdvReac Type Severity Reaction Status Date / Time sulfamethoxazole Allergy Unknown Swelling Verified 04/09/25 01:07 of Lip/Tongue/Throat trimethoprim Allergy Unknown Swelling Verified 04/09/25 01:07 of Lip/Tongue/Throat Exam Vital Signs Temp Pulse Resp BP Pulse Ox O2 Del Method O2 Flow Rate 97.7 F 107 H 20 133/79 H 100 CPAP 3 04/10/25 11:40 04/10/25 12:00 04/10/25 12:00 04/10/25 12:00 04/10/25 12:00 04/10/25 12:00 04/10/25 08:00 FiO2 40 04/10/25 12:00 Narrative Exam General: altered on bipap Skin: Intact, Warm, no rashes. HEENT: Normocephalic, Atraumatic. Normal neck range of motion, Supple. Trachea midline. Respiratory: Lungs are clear to auscultation, Breath sounds are equal bilaterally with equal chest expansion. Cardiovascular: RRR, normal S1, S2, No murmurs. Distal pulses 2+ Abdomen: Abdomen non-distended, without erythema,organomagely. Absent rigidity, guarding, or rebound. Musculoskeletal/Extremities: No erythema, swelling, tenderness of any joints. No edema of BLE Results Labs 04/10/25 11:48 04/10/25 05:21 Labs: Short CBC 04/09/25 04/10/25 Range/Units 12:48 11:48 WBC 8.1 9.3 (3.6-11.0) Thou/mm3 Hgb 12.2 11.8 L (12.0-16.0) g/dL Hct 37.8 36.8 (36.0-46.0) % Plt Count 158 D 194 D (140-440) Thou/mm3 BMP 04/10/25 05:21 Sodium 138 Potassium 5.8 H D Chloride 87 L Carbon Dioxide 37.0 H BUN 32 H Creatinine 5.7 H* D Glucose 112 H Calcium 9.8 Liver Function 04/10/25 Range/Units 05:21 Total Bilirubin 0.9 (0.3-1.2) mg/dL AST 33 (0-34) U/L ALT 19 (10-49) U/L Alkaline Phosphatase 145 H (46-116) U/L Albumin 4.1 (3.4-4.8) gm/dL ABG Interpretation ABG results: 04/10/25 11:00 ABG pH 7.45 ABG pCO2 60 H ABG pO2 79 L ABG HCO3 42 H ABG O2 Saturation 96 ABG Base Excess 16 H Assessment & Plan Assessment and plan (1) Bowel obstruction: Status: Acute (2) ESRD (end stage renal disease): Status: Acute Assessment and plan: Getting dialysis very sick pt tolerating dialysis Discussed plan with napkin machine operator c/w dialysis 3 times a week (3) CHF exacerbation: Status: Acute
[2025-04-10 12:25] LABS: Albumin, Serum 4.2 gm/dL (3.4-4.8); Anion Gap 14 (7-16); BUN/Creatinine Ratio 8 Ratio (12-20); Blood Urea Nitrogen 45 mg/dL (9-23); Calcium 9.1 mg/dL (8.3-10.6); Calcium (Corrected) 9.1 mg/dL (8.5-10.1); Carbon Dioxide 39.2 mMol/L (20.0-31.0); Chloride 86 mMol/L (98-107); Creatinine (Component) 6.0 mg/dL (0.6-1.3); Estimated Creatinine Clearance 8.0 mL/min (>60); Glucose 125 mg/dL (74-106); Osmolality,Calculated 290 (275-295); Phosphorous 5.4 mg/dL (2.4-5.1); Potassium 6.0 mMol/L (3.4-5.1); Sodium 139 mMol/L (136-145); eGFR 7 See Note
--- NOTE | 2025-04-10 12:27 | PD.SURCONS ---
HPI Consult details Consult date: 04/10/25 Reason for consultation narrative: Small bowel obstruction History of present illness: Patient is seen and examined in ICU, patient is obtunded. No family members at the bedside. History is obtained from medical records and patient's nurse. 69-year-old female with a past medical history of ESRD on HD, type 2 diabetes mellitus, hypertension, CVA with residual left-sided weakness who is admitted for small bowel obstruction. An NG tube was placed and small bowel series was obtained that showed small bowel obstruction. Earlier rapid response was activated due to altered mental status and there was question of emesis with aspiration, hence patient was transferred to ICU. Past Medical History Surgical History OTHER SURGICAL HX: Hysterectomy, shoulder surgery, carpal tunnel release, right upper extremity AV fistula Meds Home Medications and Allergies Home Medications ?Medication ?Instructions ?Recorded ?Confirmed ?Type amlodipine 5 mg tablet 10 mg PO QAM 07/30/21 04/09/25 History sevelamer carbonate 800 mg tablet 800 mg PO TIDWM 07/30/21 04/09/25 History hydralazine 50 mg tablet 100 mg PO TID 10/02/21 04/09/25 History hydrocodone 10 mg-acetaminophen 5 tab PO QDAY PRN Pain 10/02/21 04/09/25 History 325 mg tablet albuterol sulfate 2.5 mg/3 mL 3 ml continuous nebulization TID 12/04/21 04/09/25 History (0.083 %) solution for nebulization PRN WHEEZING lidocaine 5 % topical patch 1 patch topical QDAY 08/01/22 04/09/25 History ropinirole 4 mg tablet 4 mg PO DAILY 08/01/22 04/09/25 History gabapentin 300 mg capsule 300 mg PO 3XD 12/28/23 04/09/25 History metoprolol succinate 100 mg 100 mg PO QMORNING 12/28/23 04/09/25 History tablet,extended release 24 hr Held on 04/09/25. Instructions: Doctor's Order omeprazole 40 mg capsule,delayed 40 mg PO QDAY 12/28/23 04/09/25 History release sodium zirconium cyclosilicate 10 10 g PO QDAY 12/28/23 04/09/25 History gram oral powder packet (Lokelnd) vitamin B comp no.3-folic acid 1 1 tab PO QDAY 04/09/25 04/09/25 History mg-vit C 60 mg-biotin 300 mcg tablet ([facility]) Allergies Allergy/AdvReac Type Severity Reaction Status Date / Time sulfamethoxazole Allergy Unknown Swelling Verified 04/09/25 01:07 of Lip/Tongue/Throat trimethoprim Allergy Unknown Swelling Verified 04/09/25 01:07 of Lip/Tongue/Throat Exam Vital Signs Temp Pulse Resp BP Pulse Ox O2 Del Method O2 Flow Rate 97.7 F 105 H 20 127/61 100 CPAP 3 04/10/25 11:40 04/10/25 12:15 04/10/25 12:00 04/10/25 12:15 04/10/25 12:00 04/10/25 12:00 04/10/25 08:00 FiO2 40 04/10/25 12:00 Constitutional Constitutional: no acute distress and obtunded Routine Abdominal Exam Comments: Abdomen is soft and very minimally distended. He has infraumbilical scar. No evidence of peritonitis at this time Assessment & Plan Additional Assessment Additional comments: Small bowel obstruction Plan Continue NG tube to low continuous suction. May have to repeat small bowel series tomorrow
--- NOTE | 2025-04-10 12:50 | PC.NURSE ---
Bp trending down pt noted w/ fremk loyd'sMD Pastor at bedside. Will admin PRN albumin 25/100ml and uf goal lowered to 1.7 as tolerated. Will cont. to monuitor
--- NOTE | 2025-04-10 13:13 | PD.INTPROG ---
Documentation for date of: 04/10/25 Subjective Subjective Interval history: This is a 69yo F admitted to the hospital on 04/09 for SBO. She has a h/o ESRD on HD. She was on HD today when she became altered and hypoxic and a rapid response was called. An ICU eval was requested. The pt had sats reading between mid 80s and low 70s. She was not diaphoretic nor ashen and was moving all extremities. She was being bagged however no change in her sats. It was unclear if this was real. An oral airway was placed and the pt began actively tonguing the OA out of her mouth. The pulse ox was switched to her ear and sats began to read in the mid to high 90s. pts BP improved from 90s to 120s. She was still altered and the decision was made to bring her to the ICU. She will intermittenly open eyes and look around and then drift back to sleep. She moves all 4 extremities though is sluggish on her L (residual weakness from prior CVA). She currently has an NGT in place which was clamped at time of HD and rapid. There are reports of n/v earlier however none in HD. Critical Care Note Critical care time (min.): 70 Exam Vital Signs Temp Pulse Resp BP Pulse Ox O2 Del Method O2 Flow Rate 97.7 F 109 H 20 117/67 100 CPAP 3 04/10/25 11:40 04/10/25 13:00 04/10/25 12:00 04/10/25 13:00 04/10/25 12:00 04/10/25 12:00 04/10/25 08:00 FiO2 40 04/10/25 12:00 Narrative Exam Gen- altered, GCS 10-11 (M6, V1, E 3-4) nl body habitus HEENT- NC/AT, mucosa dry, poor dentition, sclera anicteric, PERRL Chest- LCTAB, diminished, distant, HRRR, no increase in WOB, no use of accessory muscles Abd- soft, no apparent discomfort on deep palpation Ext- pulses palp, no edema, moves all 4 though sluggish on LUE, R UE AV fistula update on repeat exam after rapid response pt is AAOx3 and appropriate Physical Exam Completion Physical Exam Complete?: No Objective - Junior Sales Assistant Labs 04/11/25 04:34 04/11/25 04:34 Labs: Laboratory Results - last 24 hr 04/09/25 04/09/25 04/10/25 11:53 16:04 05:21 WBC RBC Hgb Hct MCV MCH MCHC RDW Std Deviation Plt Count Neut % (Auto) Lymph % (Auto) [place] % (Auto) Eos % (Auto) Baso % (Auto) Neut # (Auto) Lymph # (Auto) [place] # (Auto) Eos # (Auto) Baso # (Auto) Immature Gran # (Auto) Absolute Nucleated RBC Immature Gran % Nucleated RBC % Puncture Site ABG pH ABG pCO2 ABG pO2 ABG HCO3 ABG O2 Saturation ABG Base Excess Oxygen Liter Flow Sodium 138 Potassium 5.8 H D Chloride 87 L Carbon Dioxide 37.0 H Anion Gap 14 BUN 32 H Creatinine 5.7 H* D Estim Creat Clear Calc 8.3 L eGFR 8 L* BUN/Creatinine Ratio 6 L Glucose [address] Glu mg/dL 94 Hemoglobin A1c 4.9 Calculated Osmolality 283 Lactic Acid 3.4 H Calcium 9.8 Corrected Calcium 9.8 Phosphorus 5.0 Magnesium 2.2 Total Bilirubin 0.9 AST 33 ALT 19 Alkaline Phosphatase 145 H Ammonia C-Reactive Prot, Quant 4.7 H Total Protein 7.7 Albumin 4.1 Globulin 3.6 H Albumin/Globulin Ratio 1.1 L TSH 1.42 Hepatitis A IgM Ab Non Reactive Hep Bs Antigen Non Reactive Hep Bs Antibody NonReact(Not Immune) L Hep B Core IgM Ab Non Reactive 04/10/25 04/10/25 04/10/25 10:26 11:00 11:48 WBC 9.3 RBC 3.67 L Hgb 11.8 L Hct 36.8 MCV 100 MCH 32.2 MCHC 32.1 RDW Std Deviation 55.4 H Plt Count 194 D Neut % (Auto) 84 H Lymph % (Auto) 10 [place] % (Auto) 5 Eos % (Auto) 0 Baso % (Auto) 0 Neut # (Auto) 7.8 H Lymph # (Auto) 0.9 L [place] # (Auto) 0.5 Eos # (Auto) 0.0 Baso # (Auto) 0.0 Immature Gran # (Auto) 0.05 H Absolute Nucleated RBC 0.00 Immature Gran % 1 H Nucleated RBC % 0 Puncture Site Right Femoral ABG pH 7.45 ABG pCO2 60 H ABG pO2 79 L ABG HCO3 42 H ABG O2 Saturation 96 ABG Base Excess 16 H Oxygen Liter Flow 10 Sodium 139 Potassium 6.0 H Chloride 86 L Carbon Dioxide 39.2 H Anion Gap 14 BUN 45 H Creatinine 6.0 H* Estim Creat Clear Calc 8.0 L eGFR 7 L* BUN/Creatinine Ratio 8 L Glucose [address] Glu mg/dL Hemoglobin A1c Calculated Osmolality 290 Lactic Acid 3.7 H Calcium 9.1 Corrected Calcium 9.1 Phosphorus 5.4 H Magnesium Total Bilirubin AST ALT Alkaline Phosphatase Ammonia 35 H C-Reactive Prot, Quant Total Protein Albumin 4.2 Globulin Albumin/Globulin Ratio TSH Hepatitis A IgM Ab Hep Bs Antigen Hep Bs Antibody Hep B Core IgM Ab Assessment & Plan Problem List (1) Bowel obstruction: Status: Acute (2) ESRD (end stage renal disease): Status: Acute (3) CHF exacerbation: Status: Acute Additional Assessment Additional Assessment: This is a 69yo F admitted to the ICU for hypoxia a/p DRIER AND PULVERIZER TENDER AMS- pt was unresponsive during rapid response however began to wake up and became more responsive after ~10min. On reeval an hour later she is awake and appears to be at baseline. There are residual deficits from prior CVA which are L sided facial droop and LUE weakness CV Hypotension- resolved during rapid response, had received albumin prior Resp Hypoxemia- pt desatted in dialysis prior to being started on HD. She was not seen to be actively vomiting. ? silent aspiration. CXR showed some mild perihilar infiltrate, ABG showed nl pH with chronic resp acidosis and compensatory metabolic alkalosis. She is currently stable on NC and appears to have improved. Unclear if the desat was 2/2 poor perfusion with hypotension or true hypoxia and primary respiratory issue, will check a CTA chest to eval for PE. Renal ESRD on HD HyperK- currently on HD which will improve K Metabolic alkalosis- pt appears to have both a compensatory alkalosis for chronic resp acidosis as well as a met alk from H+ loss from NGT suction LA- pt with LA 3.4-> 3.7 , will give IVF, concern for abd source given her bowel obstruction GI SBO- seen and followed by surgery. for gastrograffin studies in AM - on ceftri and flagyl - NGT to LIS Endo DM- SSI Heme DVT proph- heparin 5000 q8 ID stable case d/w ICU team labs, imaging, records reviewed ~70ccmin required for eval, exam, review, intervention, discussion and formulation of POC for this pt. This time includes time during rapid response for hypoxia and hypotension. Provider Notation Provider Notation: Although this document has been carefully reviewed, there may still be some phonetic and other typographical errors. These errors are purely grammatical due to imperfections in the software program and should not be construed in any way to compromise the substance of the patient's medical care during this visit. Thank you for the opportunity and privilege in assisting you with this patient's care and management.
--- NOTE | 2025-04-10 13:46 | XR_ITS ---
Examination: CTA chest with intravenous contrast 2-D reconstructions 3-D reconstructions, vascular Date and time of exam: April 11, 2025, 0014 hrs. Indications: Chest pain shortness of breath today, clinical diagnosis pulmonary embolus CTDI: vol (mGy) 15 DLP: (mGycm) 509 Technique: Multiple axial sections of the thorax have been obtained. 3 mm slice thickness, from below the hemidiaphragms to above the apices of the lungs. Mediastinal and lung density settings have been obtained. 2-D sagittal and coronal reconstructions. 3-D angiographic renderings, 3-D volume renderings, 3D post processing, vascular maximum intensity projections obtained. Contrast administered is 100 cc Isovue-370 intravenous. Low dose protocols were performed. One or more of the following dose reduction techniques were used; automated exposure control, adjustment of the mA and/or KV according to patient size, use of iterative reconstruction technique. Findings: No thoracic aortic aneurysmal dilatation Pulmonary artery segments are not enlarged No pulmonary artery filling defects Mild enlargement cardiac contour Significant calcification left anterior descending left circumflex left main coronary arteries Significant bibasilar pneumonia Orogastric tube in the stomach Fatty infiltration throughout the liver Left internal jugular central line tip right atrium Impression: Negative for pulmonary artery emboli Significant bibasilar pneumonia, consider aspiration pneumonia
--- NOTE | 2025-04-10 13:48 | PC.NURSE ---
bp cont's. to trend down, uf goal lowered to 1.4L as tolerated, will cont. to monitor
--- NOTE | 2025-04-10 13:56 | PD.ADDPROG ---
Addendum Progress Note Addendum Date of report being addended: 04/10/25 Narrative: I Arnol Graff MD reviewed the note and agree with the resident's assessment & plan with modifications/additions/exceptions as below. I have personally reviewed labs, imaging, home meds/prior records, examined the patient, formulated and discussed management plan with the IM team. A 69-year-old female with history of ESRD on HD, CVA, HTN presented to ED with abdominal pain. Initial evaluation and workup did reveal small bowel obstruction with lactic acidosis. General surgery was consulted who recommended obtaining small bowel series which confirmed small bowel obstruction. Continue intermittent NG tube suction for decompression, empirically treat with Rocephin and Flagyl, continue low rate IV fluid resuscitation, continue trending lactate levels. Will follow-up with further general surgery recommendations. Nephrology on board patient is undergoing hemodialysis session today. Patient temporarily became hypotensive and hypoxic With spontaneous resolution. Before beginning dialysis likely hypovolemic, will administer midodrine and albumin to support hemodialysis. Appreciate critical care input.
[2025-04-10] MEDS: cefTRIAXone/D5w 1gm IV premix 1 GM/50 ML BAG IV (13:59)
--- NOTE | 2025-04-10 14:01 | PC.NURSE ---
bp remains low, md Pastor at bedside
--- NOTE | 2025-04-10 14:13 | PC.NURSE ---
bp improving, MD Gray w/ order to lower uf goal to 1.1L as tolerTED, ORDER CARRIED OUT WILL CONT. TO MONITOR. MD VILLANUEVA NOTIFIED.
[2025-04-10] MEDS: HEPARIN SOD INJ 5000 UNIT/ML VIAL SC ×2 (14:24→22:04)
--- NOTE | 2025-04-10 14:33 | PC.SS ---
Patient is alert/oriented. Admitted for sbo on 04-09-25. Patient was in dialysis treatment earlier when her blood pressure was dropping. Patient has since then been transferred to ICU. SS contacted patient's daughter, Theodora. Theodora confirmed she is the alt medical decision maker for patient. Patient resides with her two daughters and boyfriend. Patient uses a wheelchair and 02 as needed. Patient is already established with dialysis with Dr. Gunderson. Out patient schedule is every M/W/F @9:50a.m. and patient takes [facility] transport. Patient is open to [facility] and has been open for the last 2 years. PCP: Dr. Bobby at [facility]. Last appt. was 2-3 weeks ago. Patient will return home once medically stable. Alt medical decision maker: DaughterTheodora, d/c plan: home with [facility]. Need new orders
[2025-04-10 14:53] LABS: Reflex Lactate? Y
--- NOTE | 2025-04-10 15:01 | ESPR_ITS ---
<Statement entered by Francisco Ren MD - 04/10/25 20:08> No acute overnight events. Seen and examined at bedside and patient was nauseous and spitting up thick mucus at bedside. She had already been given Gastrografin for small bowel series and film shows small bowel obstruction, general surgery notified. She then went to dialysis for which her rapid response was called for saturations in the 60 to 70s. During this time, patient GCS was 9-10 for which ICU was notified and she required bag-mask ventilatoin. It was difficult to obtain accurate SpO2 readings but VBG and CXR were obtained. CXR did not show significant abnormaliites. Dialysis was not officially started and blood pressure was stable, lungs sounded clear, but suspect thick secretions interfering with oxygenation during this time, though suctioning did not significantly improve SpO2. She was eventually upgraded to the ICU for further monitoring but did not require intubation. ----- Note reviewed and agree with care plan as documented. Please refer to the note below for further details. Plan discussed with attending physician Dr. Dajuan Ren MD PGY-2 Internal Medicine Documentation for date of: 04/10/25 Subjective Subjective Interval history: Patient was seen and examined at bedside. No acute events took place overnight. Patient feeling nauseous and vomited, received a dose of Zofran at 11 PM yesterday night. She was seen by the surgeon who prescribed Reglan. Patient noted to be in marked pain. Continues to be on NGT intermittent suction setting blood pressure soft 93/50 and HR 117, given 10 mg midodrine and a bag of albumin and it stabilized to 105/68. Patient was taken for dialysis, and in the evening at was noted to be desatting, rapid response was called for O2 saturation in mid 70s. Please refer to the accompanying event note for more details. Exam Vital Signs Temp Pulse Resp BP Pulse Ox O2 Del Method O2 Flow Rate 97.0 F 103 H 20 96/58 L 96 CPAP 5 04/10/25 14:31 04/10/25 14:45 04/10/25 14:31 04/10/25 14:45 04/10/25 14:31 04/10/25 12:00 04/10/25 14:31 FiO2 40 04/10/25 12:00 Narrative Exam General: Alert and oriented x3, No apparent distress. Skin: Intact, Warm, no rashes. HEENT: Normocephalic, Atraumatic. Normal neck range of motion, Supple. Trachea midline. Respiratory: Lungs are clear to auscultation, Breath sounds are equal bilaterally with equal chest expansion. Cardiovascular: RRR, normal S1, S2, No murmurs. Distal pulses 2+ Abdomen: Abdomen non-distended, without erythema, or lesions. Diminished bowel sounds x 4 percussion dull. Palpation soft, tenderness in left lower quadrant. Distended loops of bowel noted in the left lower quadrant. no organomagely. Absent rigidity, guarding, or rebound. Musculoskeletal/Extremities: No erythema, swelling, tenderness of any joints. No edema of BLE. DP pulses +2/3 b/l. Full active ROM of all four extremities. Neurologic: NEURO: Oriented x3, cranial nerves II to XII grossly intact. Left upper extremity paralysis and loss of sensation residual effect of CVA in 2023 Psych: Thoughts linear and responses appropriate. Objective Labs 04/10/25 11:48 04/10/25 21:07 Labs: Laboratory Results - last 24 hr 04/09/25 04/10/25 04/10/25 16:04 05:21 10:26 WBC RBC Hgb Hct MCV MCH MCHC RDW Std Deviation Plt Count Neut % (Auto) Lymph % (Auto) [place] % (Auto) Eos % (Auto) Baso % (Auto) Neut # (Auto) Lymph # (Auto) [place] # (Auto) Eos # (Auto) Baso # (Auto) Immature Gran # (Auto) Absolute Nucleated RBC Immature Gran % Nucleated RBC % Puncture Site ABG pH ABG pCO2 ABG pO2 ABG HCO3 ABG O2 Saturation ABG Base Excess Oxygen Liter Flow Sodium 138 Potassium 5.8 H D Chloride 87 L Carbon Dioxide 37.0 H Anion Gap 14 BUN 32 H Creatinine 5.7 H* D Estim Creat Clear Calc 8.3 L eGFR 8 L* BUN/Creatinine Ratio 6 L Glucose [address] Glu mg/dL 94 Hemoglobin A1c 4.9 Calculated Osmolality 283 Lactic Acid 3.4 H Calcium 9.8 Corrected Calcium 9.8 Phosphorus 5.0 Magnesium 2.2 Total Bilirubin 0.9 AST 33 ALT 19 Alkaline Phosphatase 145 H Ammonia 35 H Total Protein 7.7 Albumin 4.1 Globulin 3.6 H Albumin/Globulin Ratio 1.1 L TSH 1.42 Hepatitis A IgM Ab Non Reactive Hep Bs Antigen Non Reactive Hep Bs Antibody NonReact(Not Immune) L Hep B Core IgM Ab Non Reactive 04/10/25 04/10/25 11:00 11:48 WBC 9.3 RBC 3.67 L Hgb 11.8 L Hct 36.8 MCV 100 MCH 32.2 MCHC 32.1 RDW Std Deviation 55.4 H Plt Count 194 D Neut % (Auto) 84 H Lymph % (Auto) 10 [place] % (Auto) 5 Eos % (Auto) 0 Baso % (Auto) 0 Neut # (Auto) 7.8 H Lymph # (Auto) 0.9 L [place] # (Auto) 0.5 Eos # (Auto) 0.0 Baso # (Auto) 0.0 Immature Gran # (Auto) 0.05 H Absolute Nucleated RBC 0.00 Immature Gran % 1 H Nucleated RBC % 0 Puncture Site Right Femoral ABG pH 7.45 ABG pCO2 60 H ABG pO2 79 L ABG HCO3 42 H ABG O2 Saturation 96 ABG Base Excess 16 H Oxygen Liter Flow 10 Sodium 139 Potassium 6.0 H Chloride 86 L Carbon Dioxide 39.2 H Anion Gap 14 BUN 45 H Creatinine 6.0 H* Estim Creat Clear Calc 8.0 L eGFR 7 L* BUN/Creatinine Ratio 8 L Glucose [address] Glu mg/dL Hemoglobin A1c Calculated Osmolality 290 Lactic Acid 3.7 H Calcium 9.1 Corrected Calcium 9.1 Phosphorus 5.4 H Magnesium Total Bilirubin AST ALT Alkaline Phosphatase Ammonia Total Protein Albumin 4.2 Globulin Albumin/Globulin Ratio TSH Hepatitis A IgM Ab Hep Bs Antigen Hep Bs Antibody Hep B Core IgM Ab ABG Interpretation ABG results: 04/10/25 11:00 ABG pH 7.45 ABG pCO2 60 H ABG pO2 79 L ABG HCO3 42 H ABG O2 Saturation 96 ABG Base Excess 16 H Quality Measures Quality Measures none Advance care planning discussed with:: patient Assessment & Plan Assessment Current Active Medications: Generic Name Dose Route Start Last Admin Trade Name Freq PRN Reason Stop Dose Admin Acetaminophen 650 mg 04/09/25 11:34 Acetaminophen 325 Mg Tablet PO 05/09/25 11:33 Q6H PRN PAIN OR FEVER > 100.4 Dextrose 25 ml 04/09/25 02:33 Dextrose 50%-Water Inj 50 Ml Syringe IV 05/09/25 02:32 Q15MIN PRN BG 50-70 responsive npo pt Dextrose 50 ml 04/09/25 02:33 Dextrose 50%-Water Inj 50 Ml Syringe IV 05/09/25 02:32 Q15MIN PRN BG <50 OR BG <70 & pt unresponsive Glucagon 1 mg 04/09/25 02:33 Glucagon Inj 1 Mg Vial IM Q15MIN PRN BG <70, and no IV access Heparin Sodium (Porcine) 5,000 unit 04/10/25 14:00 04/10/25 14:24 Heparin Sod Inj 5000 Unit/Ml Vial SC 04/24/25 13:59 5,000 unit Q8HR NADEEM Administration Ceftriaxone Sodium/Dextrose 1 gm in 50 mls @ 100 mls/hr 04/09/25 16:12 04/10/25 13:59 Rocephin/D5w 1gm Iv Premix IV 04/16/25 16:11 100 mls/hr QDAY@1400 NADEEM Administration Metronidazole 500 mg in 100 mls @ 200 mls/hr 04/09/25 16:13 04/10/25 13:59 Flagyl 500 Mg Iv IV 04/16/25 16:12 200 mls/hr Q8HR NADEEM Administration Albumin Human 25 gm in 100 mls @ 6,000 mls/hr 04/10/25 12:58 04/10/25 12:45 Albuminar-25 Ivpb IV 6,000 mls/hr PRN PRN Administration DIALYSIS Insulin Human Lispro 0 unit 04/09/25 18:00 04/10/25 13:54 Insulin Lispro (Admelog) 1 Unit/0.01 Ml Unit SC 05/09/25 17:59 Not Given Q6HR NADEEM Protocol Lidocaine 1 patch 04/09/25 18:50 Lidocaine 5% 1 Patch TOP 05/09/25 18:49 UD PRN PAIN Protocol Metoclopramide HCl 10 mg 04/10/25 09:00 04/10/25 09:41 Metoclopramide Inj 5 Mg/Ml Vial 2 Ml IVP 05/10/25 08:59 10 mg Q6HR NADEEM Administration Protocol Ondansetron HCl 4 mg 04/09/25 11:34 04/09/25 21:51 Ondansetron Inj 2 Mg/Ml Inj 2 Ml IVP 05/09/25 11:33 4 mg Q6H PRN Administration NAUSEA OR VOMITING Protocol Sodium Chloride 3 ml 04/09/25 02:37 Sodium Chloride Rt Ree 0.9% 3 Ml Nebu INH 05/09/25 02:36 PRN PRN SOLN Plan Patient is a 69-year-old female with past medical history of end-stage renal disease on hemodialysis M/W/F, diabetes mellitus, hypertension, CVA with residual left-sided weakness, who was brought in to the ED by daughter on 04/09/2025 for worsening left-sided abdominal pain and swelling the day before. Patient admitted for inpatient workup and management of SBO as found on imaging. #Acute hypoxemic respiratory failure secondary to aspiration At 9:55 AM, rapid response was called for low oxygen saturations O2 88% on pulse ox monitor and AMS when patient had just started dialysis. Patient had been nauseous and vomited overnight and the NG tube had jbeen withdrawn. On physical exam, patient initially noted to have unclear breath sounds centrally, and on the spot suctioning, removed about 3mL of normal pharyngeal secretions, as patient had been n.p.o. Patient demonstrated decreased breath sounds over the left lower lobe. CXR: Interval mild to moderate bibasilar pneumonia EKG: Sinus tachycardia, HR 103 ABG: pH 7.45, pCO2 60, pO2 79, bicarb 42 -Patient was upgraded to ICU #Small bowel obstruction, complete versus partial # Lactic acidosis, improving Patient coming in with failure to generate bowel movement, worsening abdominal pain rated 10/10, and distended loops of bowel and diminished bowel sounds on physical exam. Patient admitted to ability to pass flatus. KUB showed small bowel obstruction pattern. CTAP confirmed SBO, additionally, 5 mm pulmonary nodule right middle lobe, atrophic kidneys with significant renal scarring, irregular urinary bladder wall thickening. Initial lactate 2.9 and peaked at 4.8 after hemodialysis but now downtrending. ?Initiated antibiotics for prevention of transmigration possible enteritis/colitis Latest x-ray in abdominal series, the 14-hour delayed film, confirmed SBO. Plan: ? Patient n.p.o., mouth swabs to quench thirst ? Flagyl IV 500 mg every 8 hour ? Rocephin 1 g IV daily ? Surgery Dr Jack consulted, appreciate recs ?Spoke to surgeon Dr. Jack who said will evaluate surgical indication for management as soon as abdominal series are completed and demonstrate SBO pattern -Abdominal series may need to be repeated. ?Acetaminophen IV 1000 mg every 6 hour as needed ? Will continue IV fluids. ? Keep patient n.p.o. regular nasogastric tube after small bowel series study is complete. #History of ESRD on HD On scheduled hemodialysis Thursday, followed by Dr. Gundersno in [place], 04/10 1.1L of fluid was removed through dialysis. - midodrine 10mg TID and albumen PRN for maintaining normal BP ? Nephrology consulted, appreciate recs ? Resume home meds after med rec reconciliation and general surgery recommendations # Hyperkalemia Due to elevated potassium of 7.4, patient was given albuterol 10mg x1, 100cc dextrose with 5u of insulin, 40mg Lasix, calcium gluconate 1g and sodium bicarbonate 50cc. ?Patient received emergent dialysis where 1 L of fluid was removed, Repeat potassium check WNL 4.9. #History of diabetes mellitus History of diabetes mellitus for more than 2 decades, on insulin. ? Follow A1c ? Insulin regular sliding scale Health Maintenance: Disposition: Med/tele, pending abdominal series results to confirm SBO. Diet: N.p.o. PPx DVT: Sequential compression devices PPx GI: [] Code Status: full This case was discussed with my attending physician, Dr. Graff, and senior resident, Dr Mikal Winston. Lori Yuen, DO PGY I
--- NOTE | 2025-04-10 15:02 | PD.RESEVENT ---
Documentation for date of: 04/10/25
[2025-04-10 15:44] LABS: Lactic Acid, 3 HR 6.3 mMol/L (0.4-2.0)
[2025-04-10] MEDS: RINGERS LACTATED 500 ML 500 ML 999 ML IV (16:04)
--- NOTE | 2025-04-10 17:27 | PC.NURSE ---
MD Mccracken made aware of pt current GCS and breathing pattern. No new orders given.
--- NOTE | 2025-04-10 17:33 | XR_ITS ---
Examination: CT abdomen with intravenous contrast CT pelvis with intravenous contrast 2-D coronal reconstructions 2-D sagittal reconstructions Date and time of exam:April 11, 2025, 0014 hrs. Indications: Abdominal pain and distention this week, clinical diagnosis bowel ischemia. CTDI: vol (mGy) 16.6 DLP: (mGycm) 906 Technique: Multiple axial sections of the abdomen and pelvis have been obtained. 64 slice high-resolution scanner used. 3 mm axial sections have been obtained, post intravenous injection cc Isovue-370 2-D sagittal, coronal reconstructions obtained. Low dose protocols were performed. One or more of the following dose reduction techniques were used; automated exposure control, adjustment of the mA and/or KV according to patient size, use of iterative reconstruction technique. Findings: Significant bibasilar pneumonia No focal liver or splenic lesions Distended gallbladder No pancreatic mass Multiple distended small bowel loops Atrophic kidneys with perinephric stranding Aorta normal size Tiny fat-containing umbilical hernia No pericecal inflammatory change Rectal wall appears thickened Contracted urinary bladder Severe osteopenia Grade 1 anterolisthesis L4 on L5 Impression: Atrophic kidneys with perinephric stranding Small bowel obstruction, consider Gastrografin small bowel series follow-up
--- NOTE | 2025-04-10 19:00 | PD.RESPROC ---
PROCEDURES: Procedure Date / Time 04/10/252000 Procedure Narrative Procedure Narrative: PROCEDURE: Left IJ vascular catheter INDICATION: Hemodialysis/Electrolye replacement PROCEDURE MARSHMALLOW RUNNER : Dr Rowe ATTENDING PHYSICIAN : Dr Reeves CONSENT : Informed consent was obtained from family, with discussion regarding the procedure, or treatment. I explained the following to the designee: a. Nature of the procedure or treatment and who will perform the procedure or treatment b. Necessity for procedure and the possible benefits. c. Risks and complications (most common and serious) d. Alternative treatments and the risks, benefits and side effects of each (including no treatment). e. Likelihood of the patient achieving his/her goals without this procedure and surgery treatment f. Problems that might occur during the recuperation g. Conflicts of interest, if any PROCEDURE SUMMARY: The Central Line Venous Catheter Insertion Practices form was completed. Starting with the first handwash prior to starting sterile technique. A time out was performed . My hands were washed immediately prior to the procedure. I wore a surgical cap, mask with protective eyewear, full gown and sterile gloves throughout the procedure. The patient was placed in Trendelenburg position. LEFT chest region was prepped using chlorhexidine scrub and draped in sterile fashion using a full drape and sterile probe cover and sterile gel employed. The medial and lateral heads of the sternocliedomastoid muscle were identified as was the carotid pulse. The Left Internal Jugular vein was identified using the ultrasound. Anesthesia was achieved over the vein using 1% lidocaine. Using real-time out of plane guidance, the introducer needle was inserted into the Left Internal Jugular Vein by ultrasound. A small incision was made at the skin surface with a scalpel and the introducer needle was exchanged for a dilator over the guidewire. After appropriate dilation was obtained, the dilator was exchanged over the wire for a central venous catheter. The wire was removed and the catheter was sutured in place at 0.2 - 0.3 cm. A sterile sobraview shield was placed over the catheter at the insertion site. The patient tolerated the procedure without any hemodynamic compromise. At time of procedure completion, all ports aspirated and flushed properly. Estimated blood loss is ~ 10 ml. Post-procedure chest x-ray pending Under the supervision of my attending Dr Reeves -Oscar Rowe MD [[id number]]
--- NOTE | 2025-04-10 19:17 | XR_ITS ---
Examination: AP chest single view Technique: Portable AP chest single view Date and time: April 10, 2025, 1937 hrs., Comparison April 10, 2025 10:20 AM Indications: Post central line placement. Findings: Left internal jugular central line tip projects in the IVC Enlarged cardiac contour with prominent vascular congestion Bibasilar opacity consistent with pneumonia Orogastric tube sidehole projects just beyond the GE junction Impression: Recommend retracting the left internal jugular central line 5 cm Recommend advancing the orogastric tube 4 cm
[2025-04-10] MEDS: RINGERS LACTATED 1000 ML 1,000 ML 999 ML IV (19:38)
--- NOTE | 2025-04-10 20:41 | XR_ITS ---
Examination: AP chest single view Technique: AP portable semiupright chest single view Date and time: April 10, 2025, 2041 hrs., Comparison 04/10/2025 1737 hrs. Indications: Reposition central line Findings: Left internal jugular central line tip right atrium satisfactory position Mild enlargement cardiac contour with prominent vascular congestion Bibasilar pneumonia and/or edema Orogastric tube also in satisfactory position Impression: Left internal jugular satisfactory position, tip right atrium
[2025-04-10 21:16] LABS: Lactate (Lactic Acid) 1.5 mMol/L (0.4-2.0)
[2025-04-10 21:39] LABS: Alanine Aminotransferase 13 U/L (10-49); Albumin, Serum 4.6 gm/dL (3.4-4.8); Albumin/Globulin Ratio 1.5 (1.2-2.2); Alkaline Phosphatase 113 U/L (46-116); Anion Gap 11 (7-16); Aspartate Amino Transferase 24 U/L (0-34); BUN/Creatinine Ratio 6 Ratio (12-20); Bilirubin,Total 1.0 mg/dL (0.3-1.2); Blood Urea Nitrogen 23 mg/dL (9-23); Calcium 10.1 mg/dL (8.3-10.6); Calcium (Corrected) 10.1 mg/dL (8.5-10.1); Carbon Dioxide 36.5 mMol/L (20.0-31.0); Chloride 93 mMol/L (98-107); Creatinine (Component) 3.9 mg/dL (0.6-1.3); Estimated Creatinine Clearance 12.3 mL/min (>60); Globulin 3.1 gm/dL (2.3-3.5); Glucose 114 mg/dL (74-106); Osmolality,Calculated 284 (275-295); Potassium 4.7 mMol/L (3.4-5.1); Sodium 140 mMol/L (136-145); Total Protein 7.7 gm/dL (5.7-8.2); eGFR 12 See Note
[2025-04-10] MEDS: LIDOCAINE HCL 1% 20 ML VIAL 10 ML INFL (22:00)
[2025-04-11] VITALS (61 sets, daily range): BP systolic 72–144; BP diastolic 50–92; PULSE 108–145; RESP 12–95; TEMP 36–36.8; O2SAT 92–100
--- NOTE | 2025-04-11 02:26 | PRELIM_ITS ---
CT angiogram of the chest with intravenous contrast (axial sections with sagittal and coronal reformats) April 11, 2025 0014 hours Clinical History: Hypoxia, R/O PE Technique:Helical axial sections with sagittal and coronal reformats of the chest were obtained with intravenous contrast. Iterative reconstruction technique was employed to reduce patient radiation exposure. 3D/MIP reconstructed images were also provided. Comparison: None available at the time of this report. Findings: There is no filling defect within the pulmonary artery divisions to suggest pulmonary thromboembolism. The mediastinum demonstrates no evidence of mass or lymphadenopathy. The thoracic aorta is unremarkable. There is no pericardial effusion. Bilateral lower lobes consolidation. No evidence of pleural effusion or pneumothorax. Degenerative changes of the imaged portions of the spine. Chronic multilevel disc disease. No acute fractures. Status post left glenohumeral joint replacement. Esophagogastric tube in place. Coronary arteries calcifications. Please, see separate report for description of the abdominal findings. Left central line with a distal tip at the superior cavoatrial junction. Dilated left atrium. Impression: 1. No CT evidence of pulmonary thromboembolism. 2. Bilateral lower lobes pneumonia. 3. Dilated left atrium. 4. Coronary arteries calcifications. If acute myocardial infarction is clinically suspected consider correlation with troponin. Report Electronically Signed By: Rell Hinson 04/11/2025 2:25:44 AM [EST]
--- NOTE | 2025-04-11 02:30 | PRELIM_ITS ---
CT scan of the abdomen and pelvis with intravenous contrast (axial sections with sagittal and coronal reformats). April 11, 2025 at 0014 hours Clinical History: Rule out bowel ischemia. Comparison: Compared with the prior CT study dated October 03, 2021. Findings: Please, see separate report for description of the chest findings. The liver, gallbladder, pancreas, spleen, and adrenals are unremarkable. No hydronephrosis. Small bilateral renal simple cysts. Mild bilateral perinephric fat stranding. Dilated small bowel loops measuring up to 4.8 cm with air-fluid levels within and transition point in the mid abdomen, trace of mesenteric fat stranding. No evidence of appendicitis. There is no mesenteric or retroperitoneal adenopathy. The urinary bladder is nondistended, limited evaluation. There is no free fluid or free air. Degenerative changes of the imaged portions of the spine. Chronic multilevel disc disease. No acute fractures. Mild anterolisthesis of the L4. Vascular calcifications. Impression: 1. Small bowel obstruction, early bowel ischemia cannot be excluded. 2. Mild bilateral perinephric fat stranding suspicious for medical renal disease. Discussion Details: Results verbally communicated to Tariq Simpson RN at 05:14 AM ET 11/04/2025. A call back number was provided to facilitate a [id number] communication. Report Electronically Signed By: Rell Hinson 04/11/2025 2:29:33 AM [EST]
[2025-04-11 04:59] LABS: Lactate (Lactic Acid) 1.1 mMol/L (0.4-2.0)
[2025-04-11 05:18] LABS: Basophils # (Auto) 0.0 Thou/mm3 (0.0-0.2); Basophils % (Auto) 0 % (0-2.5); Eosinophils # (Auto) 0.1 Thou/mm3 (0.0-0.5); Eosinophils % (Auto) 1 % (0-10); Hematocrit 34.7 % (36.0-46.0); Hemoglobin 10.9 g/dL (12.0-16.0); Immature Granulocytes Auto 0.02 Thou/mm3 (0.00-0.00); Lymphocytes # (Auto) 1.2 Thou/mm3 (1.0-4.8); Lymphocytes % (Auto) 16 % (10-50); Mean Corpuscular HGB Conc 31.4 g/dl (31.0-37.0); Mean Corpuscular Hemoglobin 31.6 pg (25.0-35.0); Mean Corpuscular Volume 101 fL (80-100); Monocytes # (Auto) 0.6 Thou/mm3 (0.0-0.8); Monocytes % (Auto) 7 % (0-12); Neutrophils # (Auto) 6.0 Thou/mm3 (1.8-7.7); Neutrophils % (Auto) 76 % (37-80); Nucleated Red Blood Cell # 0.00 Thou/mm3 (0.00-0.00); Nucleated Red Blood Cell % 0 /100 WBC (0); Platelet Count 219 Thou/mm3 (140-440); RDW Standard Deviation 56.0 fL (36.4-46.3); Red Blood Count 3.45 Miln/mm3 (4.00-5.20); White Blood Count 7.9 Thou/mm3 (3.6-11.0)
[2025-04-11] MEDS: METOCLOPRAMIDE INJ 5 MG/ML VIAL 2 ML 10 MG IVP ×3 (06:03→17:36)
[2025-04-11] MEDS: metroNIDAZOLE/NS 500 MG IVPB 500 MG/100 ML BAG 200 MG IV (06:03)
[2025-04-11] MEDS: HEPARIN SOD INJ 5000 UNIT/ML VIAL SC ×3 (06:04→21:43)
[2025-04-11 06:06] LABS: Alanine Aminotransferase 14 U/L (10-49); Albumin, Serum 4.5 gm/dL (3.4-4.8); Albumin/Globulin Ratio 1.4 (1.2-2.2); Alkaline Phosphatase 113 U/L (46-116); Anion Gap 16 (7-16); Aspartate Amino Transferase 33 U/L (0-34); BUN/Creatinine Ratio 7 Ratio (12-20); Bilirubin,Total 0.8 mg/dL (0.3-1.2); Blood Urea Nitrogen 31 mg/dL (9-23); Calcium 10.4 mg/dL (8.3-10.6); Calcium (Corrected) 10.4 mg/dL (8.5-10.1); Carbon Dioxide 32.5 mMol/L (20.0-31.0); Chloride 91 mMol/L (98-107); Creatinine (Component) 4.6 mg/dL (0.6-1.3); Estimated Creatinine Clearance 10.4 mL/min (>60); Globulin 3.2 gm/dL (2.3-3.5); Glucose 110 mg/dL (74-106); Magnesium 2.3 mg/dL (1.6-2.6); Osmolality,Calculated 285 (275-295); Phosphorous 4.8 mg/dL (2.4-5.1); Potassium 4.8 mMol/L (3.4-5.1); Sodium 139 mMol/L (136-145); Total Protein 7.7 gm/dL (5.7-8.2); eGFR 10 See Note
--- NOTE | 2025-04-11 08:48 | XR_ITS ---
Examination: Small bowel series Abdomen AP supine 3 views Date and time: 04/11/2025 1115 hours INDICATIONS: Small bowel obstruction pattern on CT abdomen pelvis this morning TECHNIQUE AND FINDINGS: Patient received 120 cc Gastrografin through the orogastric tube Immediate, 30 minute one hour films obtained Significantly distended small bowel loops noted IMPRESSION: Small bowel obstruction pattern Recommend follow-up abdomen films 2:00 PM, 4:00 PM, 6:00 PM
--- NOTE | 2025-04-11 08:51 | PD.SURPROG ---
Documentation for date of: 04/11/25 Subjective Subjective Narrative: Patient is seen and examined. She has remained stable throughout the night, 1 bowel movement was reported Exam Vital Signs Temp Pulse Resp BP Pulse Ox O2 Del Method O2 Flow Rate 97.2 F 121 H 16 129/62 97 Oxy Mask 5 04/11/25 08:00 04/11/25 08:00 04/11/25 08:00 04/11/25 08:00 04/11/25 08:00 04/11/25 08:00 04/11/25 08:00 FiO2 40 04/10/25 12:00 Constitutional Constitutional: no acute distress Routine Abdominal Exam Comments: Abdomen is soft and nondistended. She has hypoactive bowel sounds no evidence of peritonitis Assessment & Plan Assessment Additional comments: Small bowel obstruction Plan Clamp the NG tube will repeat small bowel series. Continue Reglan
--- NOTE | 2025-04-11 10:23 | XR_ITS ---
Examination: AP chest single view Technique one AP portable semiupright chest single view Date and time: April 11, 2027 1030 hours, comparison 04/10/2025 INDICATIONS: Orogastric tube position FINDINGS: Orogastric tube in stomach satisfactory position No significant cardiac enlargement Mild accentuation of the bronchovascular markings Severe osteopenia IMPRESSION: Orogastric tube in the stomach satisfactory position
[2025-04-11] MEDS: ACETAMINOPHEN IVPB 1,000 MG/100 ML VIAL 250 MG IV (10:34)
[2025-04-11] MEDS: RINGERS LACTATED 1000 ML 1,000 ML 999 ML IV (10:35)
--- NOTE | 2025-04-11 11:36 | PD.INTPROG ---
Documentation for date of: 04/11/25 Subjective Subjective Interval history: This is a 69yo F admitted to the hospital on 04/09 for SBO. She has a h/o ESRD on HD. She was on HD today when she became altered and hypoxic and a rapid response was called. An ICU eval was requested. The pt had sats reading between mid 80s and low 70s. She was not diaphoretic nor ashen and was moving all extremities. She was being bagged however no change in her sats. It was unclear if this was real. An oral airway was placed and the pt began actively tonguing the OA out of her mouth. The pulse ox was switched to her ear and sats began to read in the mid to high 90s. pts BP improved from 90s to 120s. She was still altered and the decision was made to bring her to the ICU. She will intermittenly open eyes and look around and then drift back to sleep. She moves all 4 extremities though is sluggish on her L (residual weakness from prior CVA). She currently has an NGT in place which was clamped at time of HD and rapid. There are reports of n/v earlier however none in HD. 04/11- no acute overnight events, underwent L IJ placement for venous access, had increasing LA and CT chest/abd pelvis obtained to eval for PE and ischemic bowel -> neg, afebrile, significant output from NGT >2lts/24hr Critical Care Note Critical care time (min.): 0 Exam Vital Signs Temp Pulse Resp BP Pulse Ox O2 Del Method O2 Flow Rate 97.2 F 121 H 16 129/62 97 Oxy Mask 5 04/11/25 08:00 04/11/25 08:00 04/11/25 08:00 04/11/25 08:00 04/11/25 08:00 04/11/25 08:00 04/11/25 08:00 FiO2 40 04/10/25 12:00 Narrative Exam Gen- NAD, awake alert and orient, nl body habitus, L facial droop HEENT- NC/AT, mucosa hydrated, sclera anciteric, EOMI Chest- LCTAB, HRRR, no increase in WOB Abd- soft, pain in RLQ on palp, no rebound, no guarding Ext- no edema, pulses palp, no new focal deficits, no mottling , no clubbing Physical Exam Completion Physical Exam Complete?: Yes Objective - Mohs Surgeon Labs 04/11/25 04:34 04/11/25 04:34 Labs: Laboratory Results - last 24 hr 04/10/25 04/10/25 04/10/25 11:48 15:33 21:07 WBC 9.3 RBC 3.67 L Hgb 11.8 L Hct 36.8 MCV 100 MCH 32.2 MCHC 32.1 RDW Std Deviation 55.4 H Plt Count 194 D Neut % (Auto) 84 H Lymph % (Auto) 10 [place] % (Auto) 5 Eos % (Auto) 0 Baso % (Auto) 0 Neut # (Auto) 7.8 H Lymph # (Auto) 0.9 L [place] # (Auto) 0.5 Eos # (Auto) 0.0 Baso # (Auto) 0.0 Immature Gran # (Auto) 0.05 H Absolute Nucleated RBC 0.00 Immature Gran % 1 H Nucleated RBC % 0 Sodium 139 140 Potassium 6.0 H 4.7 D Chloride 86 L 93 L Carbon Dioxide 39.2 H 36.5 H Anion Gap 14 11 BUN 45 H 23 Creatinine 6.0 H* 3.9 H D Estim Creat Clear Calc 8.0 L 12.3 L eGFR 7 L* 12 L* BUN/Creatinine Ratio 8 L 6 L Glucose 125 H 114 H Calculated Osmolality 290 284 Lactic Acid 3.7 H 6.3 H* 1.5 Calcium 9.1 10.1 Corrected Calcium 9.1 10.1 Phosphorus 5.4 H Magnesium Total Bilirubin 1.0 AST 24 ALT 13 Alkaline Phosphatase 113 D Total Protein 7.7 Albumin 4.2 4.6 Globulin 3.1 Albumin/Globulin Ratio 1.5 04/11/25 04:34 WBC 7.9 RBC 3.45 L Hgb 10.9 L Hct 34.7 L MCV 101 H MCH 31.6 MCHC 31.4 RDW Std Deviation 56.0 H Plt Count 219 Neut % (Auto) 76 Lymph % (Auto) 16 [place] % (Auto) 7 Eos % (Auto) 1 Baso % (Auto) 0 Neut # (Auto) 6.0 Lymph # (Auto) 1.2 [place] # (Auto) 0.6 Eos # (Auto) 0.1 Baso # (Auto) 0.0 Immature Gran # (Auto) 0.02 H Absolute Nucleated RBC 0.00 Immature Gran % 0 Nucleated RBC % 0 Sodium 139 Potassium 4.8 Chloride 91 L Carbon Dioxide 32.5 H Anion Gap 16 BUN 31 H Creatinine 4.6 H* D Estim Creat Clear Calc 10.4 L eGFR 10 L* BUN/Creatinine Ratio 7 L Glucose 110 H Calculated Osmolality 285 Lactic Acid 1.1 Calcium 10.4 Corrected Calcium 10.4 H Phosphorus 4.8 Magnesium 2.3 Total Bilirubin 0.8 AST 33 ALT 14 Alkaline Phosphatase 113 Total Protein 7.7 Albumin 4.5 Globulin 3.2 Albumin/Globulin Ratio 1.4 Assessment & Plan Problem List (1) Bowel obstruction: Status: Acute (2) ESRD (end stage renal disease): Status: Acute (3) CHF exacerbation: Status: Acute Additional Assessment Additional Assessment: This is a 69yo F admitted to the ICU for hypoxia a/p [employer]- pt was unresponsive during rapid response however began to wake up and became more responsive after ~10min. On reeval an hour later she is awake and appears to be at baseline. There are residual deficits from prior CVA which are L sided facial droop and LUE weakness - today pt appears to be back at baseline CV Hypotension- resolved during rapid response, had received albumin prior - given some additional volume but still appears dry Resp Hypoxemia- pt desatted in dialysis prior to being started on HD. She was not seen to be actively vomiting. ? silent aspiration. CXR showed some mild perihilar infiltrate, ABG showed nl pH with chronic resp acidosis and compensatory metabolic alkalosis. She is currently stable on NC and appears to have improved. Unclear if the desat was 2/2 poor perfusion with hypotension or true hypoxia and primary respiratory issue, will check a CTA chest to eval for PE. - currently resolved - no PE on CTA Renal ESRD on HD HyperK- resolved Metabolic alkalosis- pt appears to have both a compensatory alkalosis for chronic resp acidosis as well as a met alk from H+ loss from NGT suction - given IVF - some improvement LA- pt with LA 3.4-> 3.7 , will give IVF, concern for abd source given her bowel obstruction - increased to 6 - now resolved GI SBO- seen and followed by surgery. for gastrograffin studies in AM - on ceftri and flagyl - NGT to LIS - fu with surgery Endo DM- SSI Heme DVT proph- heparin 5000 q8 Anemia- no active bleeding noted ID stable case d/w ICU team stable for downgrade labs, imaging, records reviewed ~42min required for eval, exam, review, intervention, discussion and formulation of POC for this pt. This time includes time during rapid response for hypoxia and hypotension. Provider Notation Provider Notation: Although this document has been carefully reviewed, there may still be some phonetic and other typographical errors. These errors are purely grammatical due to imperfections in the software program and should not be construed in any way to compromise the substance of the patient's medical care during this visit. Thank you for the opportunity and privilege in assisting you with this patient's care and management.
--- NOTE | 2025-04-11 12:06 | ESPR_ITS ---
<Statement entered by Oscar Rowe MD - 04/11/25 18:29> I saw and examined patient personally and supervised PGY 1 resident, Dr. Kelley with formulating a management plan. I agree with the documentation with the exceptions as listed below. Ms. Triplett is a 69-year-old female with past medical history of ESRD on HD M/W/F, diabetes mellitus, hypertension, CVA with residual left-sided weakness, and left shoulder surgery who presented to [facility] emergency department in the multi sensor operator of 04/09 with a chief complaint of nausea, vomiting, and abdominal pain and was eventually admitted for SBO. Patient had a rapid response during dialysis for hypoxia with saturations in the 60s. After bagging the patient and switching the pulse ox to her air from finger saturations improved to 98%. Patient was subsequently upgraded to the ICU for closer monitoring due to change in mentation from GCS 15/15 to approximately 10/11 on 15. Problem list: 1. Acute metabolic encephalopathy secondary to symptomatic hypotension?resolved 2. Acute respiratory failure with hypoxia secondary to hypovolemia?resolved 3. Small bowel obstruction unresponsive to conservative management 4. CVA with residual left-sided weakness 5. ESRD on HD M/W/F 6. Macrocytic anemia Patient was initially upgraded to the ICU after a hypoxic episode while on hemodialysis. Etiology of hypoxia likely due to hypovolemia from large volume losses via NG tube and hemodialysis. CT angiogram chest ruled out pulmonary embolism. With regards to her SBO, patient had 4 L of output from her NG tube in the past 48 hours. She continues to have right-sided abdominal pain and is not passing any flatus. Last night she had 1 small-volume bowel movement. CT abdomen with contrast still showed small bowel obstruction with no signs of bowel ischemia. At this point in time her antibiotics were discontinued as patient was deemed to be low risk for bacterial translocation due to no signs of bowel ischemia and lactate down trended to 1.1. General surgeon Dr. Jack recommended to repeat small bowel series today. Plan of care discussed with Attending Dr. Leandro Rowe MD PGY 2 Disclaimer: This note was dictated by speech recognition. Minor errors in carbonator may be present due to voice recognition software. Documentation for date of: 04/11/25 Subjective Subjective Interval history: Ms. Triplett is a 69-year-old female with past medical history of ESRD on HD M/W/F, diabetes mellitus, hypertension, CVA with residual left-sided weakness, and left shoulder surgery who presented to [facility] emergency department in the multi sensor operator of 04/09 with a chief complaint of nausea, vomiting, and abdominal pain. Patient reported that her symptoms started earlier in the evening and complained of uncontrollable nausea and vomiting with some episodes of diarrhea; she reported passing gas and having a regular bowel movement earlier that day. She endorsed tenderness to palpation of the left abdomen but denied any other symptoms. In the ED, vitals showed: BP 181/89 HR 87 RR 20 Temp 98.1 SpO2 95% on room air Labs showed leukocytosis 12.5 but improved overnight, potassium 7.4 requiring urgent HD that patient underwent and repeat labs showed improvement. However, patient's lactate actually increased to 4.8 after hemodialysis which prompted CTAP (showed SBO, atrophic kidneys, and a 5 mm pulmonary nodule in the right middle lobe), placement of NG tube, initiation of small bowel series, start of NPO status, and general surgery consult. The next day (today, 04/10), a rapid response was called after patient became altered and hypoxic while receiving HD and ICU was consulted. At the time, patient's SpO2 readings ranged between mid 80s and low 70s and this did not change with [id number]-[id number] ventilation. An oral airway was also placed but patient began actively trying to push the oral airway out of her mouth with her tongue. The pulse ox on the patient was switched from her fingers to her ear and SpO2 began to read in the mid to high 90s and her BP at this point had also improved from the 90s to the 120s. However, she was still altered which prompted her to be admitted to the ICU for further management.t Interval History 04/11/25: Overnight, patient output 2 L of fluid via LIS from NG tube and also had a mucus-laden BM x 1. 04/10 CXR showed projection of the left IJ central line (placed on 04/10) into the IVC which required it to be retracted by about 5 mm. Patient was examined at bedside; she is alert and oriented x 3 and says that she is thirsty. Her hemoglobin down-trended to 10.9 from 11.8 yesterday and 12.2 the day before (will continue to monitor for now). On exam, patient was noted to have hypoactive bowel sounds as well as a linear ulcer under the skin fold created between the abdomen and left proximal thigh. Chest CTA was negative for PE. Per nephrology, patient does not require HD today. Her lactic acidosis, hypoxemia, and hypotension have all resolved, her triple lumen central line has been removed, her ceftriaxone and Flagyl have been discontinued, and she has been deemed clinically stable for downgrade to floors today. Exam Vital Signs Temp Pulse Resp BP Pulse Ox O2 Del Method O2 Flow Rate 97.2 F 121 H 16 129/62 97 Oxy Mask 5 04/11/25 08:00 04/11/25 08:00 04/11/25 08:00 04/11/25 08:00 04/11/25 08:00 04/11/25 08:00 04/11/25 08:00 FiO2 40 04/10/25 12:00 Narrative Exam General: A & O x 3 elderly female in no acute distress. Skin: Warm, dry, intact, no obvious rash. Head: Normocephalic, atraumatic. Eyes: PERRLA. EOMI. Anicteric. Ears: No ear discharge. Hearing intact. Nose: No nasal discharge. Mouth/Throat: Poor dentition. Oral mucosa dry. No obvious lesions in oropharynx. Cardiovascular: Regular rate and rhythm, no murmur, no JVD or carotid bruits. +S1/S2. Respiratory: Bilateral lungs seem clear to auscultation but are bit difficult to hear. Respirations unlabored, no crackles, no wheezing. No accessory muscle use. Gastrointestinal: Soft, non-distended. Patient does not seem to recoil in pain upon palpation of abdomen. No palpable masses. No guarding or rebound tenderness. Hypoactive bowel sounds when listening at RLQ. Extremities: AV fistula at right upper extremity noted. No edema, no cyanosis, no clubbing. 2+ radial pulse bilaterally, 2+ posterior tibial pulse bilaterally. Objective Labs 04/11/25 04:34 04/11/25 04:34 Labs: Laboratory Results - last 24 hr 04/10/25 04/10/25 04/10/25 11:48 15:33 21:07 WBC RBC Hgb Hct MCV MCH MCHC RDW Std Deviation Plt Count Neut % (Auto) Lymph % (Auto) Faulk % (Auto) Eos % (Auto) Baso % (Auto) Neut # (Auto) Lymph # (Auto) Faulk # (Auto) Eos # (Auto) Baso # (Auto) Immature Gran # (Auto) Absolute Nucleated RBC Immature Gran % Nucleated RBC % Sodium 139 140 Potassium 6.0 H 4.7 D Chloride 86 L 93 L Carbon Dioxide 39.2 H 36.5 H Anion Gap 14 11 BUN 45 H 23 Creatinine 6.0 H* 3.9 H D Estim Creat Clear Calc 8.0 L 12.3 L eGFR 7 L* 12 L* BUN/Creatinine Ratio 8 L 6 L Glucose 125 H 114 H Calculated Osmolality 290 284 Lactic Acid 6.3 H* 1.5 Calcium 9.1 10.1 Corrected Calcium 9.1 10.1 Phosphorus 5.4 H Magnesium Total Bilirubin 1.0 AST 24 ALT 13 Alkaline Phosphatase 113 D Total Protein 7.7 Albumin 4.2 4.6 Globulin 3.1 Albumin/Globulin Ratio 1.5 04/11/25 04:34 WBC 7.9 RBC 3.45 L Hgb 10.9 L Hct 34.7 L MCV 101 H MCH 31.6 MCHC 31.4 RDW Std Deviation 56.0 H Plt Count 219 Neut % (Auto) 76 Lymph % (Auto) 16 Faulk % (Auto) 7 Eos % (Auto) 1 Baso % (Auto) 0 Neut # (Auto) 6.0 Lymph # (Auto) 1.2 Faulk # (Auto) 0.6 Eos # (Auto) 0.1 Baso # (Auto) 0.0 Immature Gran # (Auto) 0.02 H Absolute Nucleated RBC 0.00 Immature Gran % 0 Nucleated RBC % 0 Sodium 139 Potassium 4.8 Chloride 91 L Carbon Dioxide 32.5 H Anion Gap 16 BUN 31 H Creatinine 4.6 H* D Estim Creat Clear Calc 10.4 L eGFR 10 L* BUN/Creatinine Ratio 7 L Glucose 110 H Calculated Osmolality 285 Lactic Acid 1.1 Calcium 10.4 Corrected Calcium 10.4 H Phosphorus 4.8 Magnesium 2.3 Total Bilirubin 0.8 AST 33 ALT 14 Alkaline Phosphatase 113 Total Protein 7.7 Albumin 4.5 Globulin 3.2 Albumin/Globulin Ratio 1.4 ABG Interpretation ABG results: 04/10/25 11:00 ABG pH 7.45 ABG pCO2 60 H ABG pO2 79 L ABG HCO3 42 H ABG O2 Saturation 96 ABG Base Excess 16 H Quality Measures Quality Measures none Advance care planning discussed with:: patient Assessment & Plan Assessment Current Active Medications: Generic Name Dose Route Start Last Admin Trade Name Elisabeth PRN Reason Stop Dose Admin Acetaminophen 650 mg 04/09/25 11:34 Acetaminophen 325 Mg Tablet PO 05/09/25 11:33 Q6H PRN PAIN OR FEVER > 100.4 Dextrose 25 ml 04/09/25 02:33 Dextrose 50%-Water Inj 50 Ml Syringe IV 05/09/25 02:32 Q15MIN PRN BG 50-70 responsive npo pt Dextrose 50 ml 04/09/25 02:33 Dextrose 50%-Water Inj 50 Ml Syringe IV 05/09/25 02:32 Q15MIN PRN BG <50 OR BG <70 & pt unresponsive Glucagon 1 mg 04/09/25 02:33 Glucagon Inj 1 Mg Vial IM Q15MIN PRN BG <70, and no IV access Heparin Sodium (Porcine) 5,000 unit 04/10/25 14:00 04/11/25 06:04 Heparin Sod Inj 5000 Unit/Ml Vial SC 04/24/25 13:59 5,000 unit Q8HR NADEEM Administration Albumin Human 25 gm in 100 mls @ 6,000 mls/hr 04/10/25 12:58 04/10/25 12:45 Albuminar-25 Ivpb IV 6,000 mls/hr PRN PRN Administration DIALYSIS Insulin Human Lispro 0 unit 04/09/25 18:00 04/11/25 05:57 Insulin Lispro (Admelog) 1 Unit/0.01 Ml Unit SC 05/09/25 17:59 Not Given Q6HR NADEEM Protocol Lidocaine 1 patch 04/09/25 18:50 Lidocaine 5% 1 Patch TOP 05/09/25 18:49 UD PRN PAIN Protocol Metoclopramide HCl 10 mg 04/10/25 09:00 04/11/25 06:03 Metoclopramide Inj 5 Mg/Ml Vial 2 Ml IVP 05/10/25 08:59 10 mg Q6HR NADEEM Administration Protocol Ondansetron HCl 4 mg 04/09/25 11:34 04/09/25 21:51 Ondansetron Inj 2 Mg/Ml Inj 2 Ml IVP 05/09/25 11:33 4 mg Q6H PRN Administration NAUSEA OR VOMITING Protocol Sodium Chloride 3 ml 04/09/25 02:37 Sodium Chloride Rt Ree 0.9% 3 Ml Nebu INH 05/09/25 02:36 PRN PRN SOLN Plan Ms. Triplett is a 69-year-old female with past medical history of ESRD on HD M/W/F, diabetes mellitus, hypertension, CVA with residual left-sided weakness, and left shoulder surgery who presented to [facility] emergency department in the multi sensor operator of 04/09 with a chief complaint of nausea, vomiting, and abdominal pain and was eventually admitted for SBO. Overnight, patient output 2 L of fluid via LIS from NG tube and also had a mucus-laden BM x 1. 04/10 CXR showed projection of the left IJ central line (placed on 04/10) into the IVC which required it to be retracted by about 5 mm. Patient was examined at bedside; she is alert and oriented x 3 and says that she is thirsty. Her hemoglobin down-trended to 10.9 from 11.8 yesterday and 12.2 the day before (will continue to monitor for now). On exam, patient was noted to have hypoactive bowel sounds as well as a linear ulcer under the skin fold created between the abdomen and left proximal thigh. Chest CTA was negative for PE. Per nephrology, patient does not require HD today. Her lactic acidosis, hypoxemia, and hypotension have all resolved, her triple lumen central line has been removed, her ceftriaxone and Flagyl have been discontinued, and she has been deemed clinically stable for downgrade to floors today. NEURO No active problems CARDIO No active problems PULM #Hypoxemia (resolved) Patient had a rapid response called while she was receiving HD due to SpO2 desaturation but it is unclear whether this was due to poor perfusion 2/2 hypotension or true hypoxia 2/2 primary respiratory issue Due to patient's hypotension coinciding with her SpO2 desaturation and the return of good SpO2 after hypotension was resolved via fluid infusion, it is believed that patient's initial hypoxemia was caused by hypotension 2/2 intravascular depletion rather than true respiratory issue Dx: -04/11 chest CTA was negative for pulmonary embolism Rx: -Continue fluid infusions GI #SBO Dx: -04/11 repeat small bowel series with gastrografin continues to show small bowel obstruction -Hypoactive bowel sounds on exam today (with 1 BM last night, possibly distal to obstruction) Rx: -Discontinued ceftriaxone and metronidazole -Nasogastric tube with low-intermittent suctioning -Surgery is following NEPHRO #ESRD on HD (M/W/F, follows Dr. Gunderson) #Hyperkalemia Dx: -Potassium up-trended to 4.8 from 4.7 yesterday Rx: -Per nephrology, patient does not need HD today and will have it tomorrow #Metabolic alkalosis (resolving) Patient appears to have both a compensatory alkalosis for chronic respiratory acidosis as well as a metabolic alkalosis from H+ loss from NG tube suctioning Most recent ABG pH (04/10) was 7.45 #Lactic acidosis (resolved) Lactic acid was elevated at 2.9 since :21, 04/09 and had two spikes of 4.8, downtrend, and then 6.3, and is now down-trended to 1.1 s/p fluid infusions, bowel ischemia less likely for now URO #No active problems HEME #Macrocytic anemia Hemoglobin has down-trended to 10.9 from 11.8 yesterday and 12.2 from the day before Rx: -Continue to monitor CBC and for signs of active bleeding -Transfuse if hemoglobin < 7 ENDO #T2DM Rx: -Insulin sliding scale ID #No active problems Disposition: Her lactic acidosis, hypoxemia, and hypotension have all resolved, her triple lumen central line has been removed, her ceftriaxone and Flagyl have been discontinued, and she has been deemed clinically stable for downgrade to floors today. DVT prophylaxis: SubQ Heparin 5,000 U q8HR GI prophylaxis: None Diet: NPO Sahu: None Lines: Peripheral IV (triple-lumen left IJ central line removed) Antibiotics: None CODE STATUS: FULL Patient plan of care was discussed with the attending infection control practitioner, Dr. Leandro eKlley, DO Internal Medicine, PGY-1
--- NOTE | 2025-04-11 13:21 | ESPR_ITS ---
<Statement entered by Francisco Ren MD - 04/11/25 20:00> ICU downgrade. Seen and examined at bedside and patient was nauseous and had mild amount of nonbloody emesis. Small bowel series initiated per general surgery recommendations and as of 6 PM she continues to have SBO pattern. She was initially upgraded to ICU for hypoxia just prior to initiating hemodialysis but has since resolved and CTA chest ruled out PE. Antibiotics were discontinued in ICU due to low risk of bacterial translocation. Will continue to follow-up small bowel series, restart NG tube on low intermittent suction after study is done. ----- Note reviewed and agree with care plan as documented. Please refer to the note below for further details. Plan discussed with attending physician Dr. Josh Ren MD PGY-2 Internal Medicine Documentation for date of: 04/11/25 Subjective Subjective Interval history: Patient was seen and examined at bedside. No acute events took place overnight. Patient is downgraded from ICU care, as her mentation has improved and oxygen saturation is at baseline. Reportedly, had a very small mucous laden stool, however, continues to have abdominal pain and imaging confirmed SBO. Tachycardia likely in the setting of pain. Exam Vital Signs Temp Pulse Resp BP Pulse Ox O2 Del Method O2 Flow Rate 97.2 F 108 H 18 113/50 L 94 L Oxy Mask 5 04/11/25 12:00 04/11/25 13:00 04/11/25 13:00 04/11/25 13:00 04/11/25 13:00 04/11/25 12:00 04/11/25 12:00 FiO2 40 04/10/25 12:00 Narrative Exam General: Alert and oriented x3, No apparent distress. Skin: Intact, Warm, no rashes. HEENT: Normocephalic, Atraumatic. Normal neck range of motion, Supple. Trachea midline. Respiratory: Lungs are clear to auscultation, Breath sounds are equal bilaterally with equal chest expansion. Cardiovascular: RRR, normal S1, S2, No murmurs. Distal pulses 2+ Abdomen: Abdomen non-distended, without erythema, or lesions. Diminished/absent bowel sounds x 4 percussion dull. Palpation soft, tenderness in left lower quadrant and suprapubic area. Distended loops of bowel noted in the left lower quadrant. no organomagely. Absent rigidity, guarding, or rebound. Musculoskeletal/Extremities: No erythema, swelling, tenderness of any joints. No edema of BLE. DP pulses +2/3 b/l. Full active ROM of all four extremities. Neurologic: NEURO: Oriented x3, cranial nerves II to XII grossly intact. Left upper extremity paralysis and loss of sensation residual effect of CVA in 2023 Psych: Thoughts linear and responses appropriate. Objective Labs 04/11/25 04:34 04/11/25 04:34 Labs: Laboratory Results - last 24 hr 04/10/25 04/10/25 04/11/25 15:33 21:07 04:34 WBC 7.9 RBC 3.45 L Hgb 10.9 L Hct 34.7 L MCV 101 H MCH 31.6 MCHC 31.4 RDW Std Deviation 56.0 H Plt Count 219 Neut % (Auto) 76 Lymph % (Auto) 16 Gray % (Auto) 7 Eos % (Auto) 1 Baso % (Auto) 0 Neut # (Auto) 6.0 Lymph # (Auto) 1.2 Gray # (Auto) 0.6 Eos # (Auto) 0.1 Baso # (Auto) 0.0 Immature Gran # (Auto) 0.02 H Absolute Nucleated RBC 0.00 Immature Gran % 0 Nucleated RBC % 0 Sodium 140 139 Potassium 4.7 D 4.8 Chloride 93 L 91 L Carbon Dioxide 36.5 H 32.5 H Anion Gap 11 16 BUN 23 31 H Creatinine 3.9 H D 4.6 H* D Estim Creat Clear Calc 12.3 L 10.4 L eGFR 12 L* 10 L* BUN/Creatinine Ratio 6 L 7 L Glucose 114 H 110 H Calculated Osmolality 284 285 Lactic Acid 6.3 H* 1.5 1.1 Calcium 10.1 10.4 Corrected Calcium 10.1 10.4 H Phosphorus 4.8 Magnesium 2.3 Total Bilirubin 1.0 0.8 AST 24 33 ALT 13 14 Alkaline Phosphatase 113 D 113 Total Protein 7.7 7.7 Albumin 4.6 4.5 Globulin 3.1 3.2 Albumin/Globulin Ratio 1.5 1.4 ABG Interpretation ABG results: 04/10/25 11:00 ABG pH 7.45 ABG pCO2 60 H ABG pO2 79 L ABG HCO3 42 H ABG O2 Saturation 96 ABG Base Excess 16 H Quality Measures Quality Measures none Advance care planning discussed with:: patient Assessment & Plan Assessment Current Active Medications: Generic Name Dose Route Start Last Admin Trade Name Freq PRN Reason Stop Dose Admin Acetaminophen 650 mg 04/09/25 11:34 Acetaminophen 325 Mg Tablet PO 05/09/25 11:33 Q6H PRN PAIN OR FEVER > 100.4 Dextrose 25 ml 04/09/25 02:33 Dextrose 50%-Water Inj 50 Ml Syringe IV 05/09/25 02:32 Q15MIN PRN BG 50-70 responsive npo pt Dextrose 50 ml 04/09/25 02:33 Dextrose 50%-Water Inj 50 Ml Syringe IV 05/09/25 02:32 Q15MIN PRN BG <50 OR BG <70 & pt unresponsive Glucagon 1 mg 04/09/25 02:33 Glucagon Inj 1 Mg Vial IM Q15MIN PRN BG <70, and no IV access Heparin Sodium (Porcine) 5,000 unit 04/10/25 14:00 04/11/25 06:04 Heparin Sod Inj 5000 Unit/Ml Vial SC 04/24/25 13:59 5,000 unit Q8HR NADEEM Administration Albumin Human 25 gm in 100 mls @ 6,000 mls/hr 04/10/25 12:58 04/10/25 12:45 Albuminar-25 Ivpb IV 6,000 mls/hr PRN PRN Administration DIALYSIS Insulin Human Lispro 0 unit 04/09/25 18:00 04/11/25 05:57 Insulin Lispro (Admelog) 1 Unit/0.01 Ml Unit SC 05/09/25 17:59 Not Given Q6HR NADEEM Protocol Lidocaine 1 patch 04/09/25 18:50 Lidocaine 5% 1 Patch TOP 05/09/25 18:49 UD PRN PAIN Protocol Metoclopramide HCl 10 mg 04/10/25 09:00 04/11/25 06:03 Metoclopramide Inj 5 Mg/Ml Vial 2 Ml IVP 05/10/25 08:59 10 mg Q6HR NADEEM Administration Protocol Ondansetron HCl 4 mg 04/09/25 11:34 04/09/25 21:51 Ondansetron Inj 2 Mg/Ml Inj 2 Ml IVP 05/09/25 11:33 4 mg Q6H PRN Administration NAUSEA OR VOMITING Protocol Sodium Chloride 3 ml 04/09/25 02:37 Sodium Chloride Rt Ree 0.9% 3 Ml Nebu INH 05/09/25 02:36 PRN PRN SOLN Plan Patient is a 69-year-old female with past medical history of end-stage renal disease on hemodialysis M/W/F, diabetes mellitus, hypertension, CVA with residual left-sided weakness, who was brought in to the ED by daughter on 04/09/2025 for worsening left-sided abdominal pain and swelling the day before. Patient admitted for inpatient workup and management of SBO as found on imaging. At 9:55 AM on 04/10, rapid response was called for low oxygen saturations O2 88% on pulse ox monitor and AMS when patient had just started dialysis. Patient had been nauseous and vomited overnight and the NG tube had jbeen withdrawn. On physical exam, patient initially noted to have unclear breath sounds centrally, and on the spot suctioning, removed about 3mL of normal pharyngeal secretions, as patient had been n.p.o. Patient demonstrated decreased breath sounds over the left lower lobe. CXR: Interval mild to moderate bibasilar pneumonia EKG: Sinus tachycardia, HR 103 ABG: pH 7.45, pCO2 60, pO2 79, bicarb 42 Patient was assumed under ICU care for acute hypoxemia and altered mental status. Oxygen levels stabilized with bag valve ventilation, there was no need for intubation. Patient was taken to the ICU unit for closer monitoring as her respiratory function and mentation improved. CT angiogram of the chest ruled out pulmonary embolism. Antibiotics were discontinued in ICU due to low risk of bacterial translocation. The etiology of her initial hypoxemia is likely to be hypovolemia in the setting of large volume losses through NGT suction and hemodialysis. #Small bowel obstruction, complete versus partial # Lactic acidosis, improving Patient coming in with failure to generate bowel movement, worsening abdominal pain rated 10/10, and distended loops of bowel and diminished bowel sounds on physical exam. Patient admitted to ability to pass flatus. KUB showed small bowel obstruction pattern. CTAP confirmed SBO, additionally, 5 mm pulmonary nodule right middle lobe, atrophic kidneys with significant renal scarring, irregular urinary bladder wall thickening. Initial lactate 2.9 and peaked at 4.8 after hemodialysis but now downtrending. 04/12: Latest x-ray in repeat abdominal series, the 11-hour delayed film, confirmed SBO. Contrast remained in distended loops of bowel. Consider resuming Flagyl IV 500 mg every 8 hour and Rocephin 1 g IV daily for prevention of transmigration enteritis/colitis Plan: ? Patient n.p.o., mouth swabs to quench thirst ? Surgery Dr Jack consulted, appreciate recs - Pending further surgery recommendations in the light of confirmed SBO on repeat abdominal series - Metoclopramide 10mg Q6h - Zofran IVP 4mg Q6h PRN nausea/vomiting ? Acetaminophen IV 1000 mg every 6 hour as needed ? Will continue IV fluids. ? Keep patient n.p.o., - Continue NGT decompression after small bowel series study is complete. #History of ESRD on HD On scheduled hemodialysis Thursday, followed by Dr. Gunderson in [place], 04/10 1.1L of fluid was removed through dialysis. - midodrine 10mg TID and albumen PRN for maintaining normal BP ? Nephrology consulted, appreciate recs ? Resume home meds after med rec reconciliation and general surgery recommendations # Hyperkalemia Due to elevated potassium of 7.4, patient was given albuterol 10mg x1, 100cc dextrose with 5u of insulin, 40mg Lasix, calcium gluconate 1g and sodium bicarbonate 50cc in ED ?Patient received emergent dialysis where 1 L of fluid was removed, Repeat potassium check WNL 4.9. #History of diabetes mellitus History of diabetes mellitus for more than 2 decades, on insulin. ? Follow A1c ? Insulin regular sliding scale Health Maintenance: Disposition: Med/tele, pending surgery recommendations in the setting of confirmed SBO on repeat abdominal series Diet: N.p.o. PPx DVT: heparin 5000u SC Code Status: full This case was discussed with my attending physician, Dr. Moreno, and senior resident, Dr Mikal Winston. Lori Yuen, DO PGY I Attending Provider Attestation/Addendum I attest that I was physically present for the evaluation, physical examination, lab and imaging review of the patient with the residents. I discussed the case with the residents and agree with the findings and plans of care as documented above. Patient seen and examined at bedside this afternoon. She is 69 years old female with past medical history of ESRD on hemodialysis, diabetes mellitus, hypertension, CVA with residual left-sided weakness who presented to the ED with complaint of nausea, vomiting and abdominal pain. Patient was then admitted for management of small bowel obstruction. Next day during hemodialysis, patient had an episode of hypoxia and altered mentation and was transferred to ICU for close monitoring. Her mentation and hypoxia improved and patient is being transferred back to medical floor for further management. At bedside today, patient states she is feeling better, and denies any new complaints. Abdomen/pelvis CT done yesterday showed small bowel obstruction, general surgery has been following closely, recommended small bowel series. Patient is undergoing small bowel series, earlier this morning showed small bowel obstruction pattern, more abdominal x-rays to follow. Lactic acidosis and hypoxia improving, patient underwent CTA which was negative for PE. Continues to be tachycardic likely secondary to bowel obstruction and pain. We will continue to monitor closely and await further general surgery recommendations. Kan Moreno MD
--- NOTE | 2025-04-11 14:00 | XR_ITS ---
Examination: Abdomen AP single view Technique: AP portable supine abdomen, single view Exam date and time: April 11, 2025, 1429 hours INDICATIONS: Abdominal distention this week, 3 hour delayed film post small bowel series today. FINDINGS: Contrast in distended small bowel loops IMPRESSION: Small bowel obstruction pattern
[2025-04-11 15:57] LABS: Hepatitis C Antibody Non Reactive (Non React)
--- NOTE | 2025-04-11 16:30 | XR_ITS ---
Examination: Abdomen AP single view Technique: AP portable supine abdomen, single view Exam date and time: April 11, 2025, 1622 hours INDICATIONS: Abdominal distention this week, 5 hour delayed film post small bowel series FINDINGS: Contrast distended small bowel loops IMPRESSION: Small bowel obstruction
--- NOTE | 2025-04-11 18:30 | XR_ITS ---
Examination: Abdomen AP single view Technique: AP portable supine abdomen, single view Exam date and time: April 11, 2025, 1825 hrs. Indications: Abdominal distention this week, 7 hour delayed film post small bowel series Findings: Prominently contrast distended small bowel loops Impression: Small bowel obstruction pattern Multiple additional delayed films will be obtained
--- NOTE | 2025-04-11 21:30 | XR_ITS ---
Examination: Abdomen AP single view Technique: AP portable supine abdomen, single view Exam date and time: Examination: April 11, 2024 at 10:04 PM Indications: 11 hour delayed film post small bowel series Findings: Contrast remains in distended small bowel loops Impression: Prominent small bowel obstruction pattern Recommend follow-up films 3:00 AM 7:00 AM
[2025-04-12] VITALS (73 sets, daily range): BP systolic 63–149; BP diastolic 37–114; PULSE 10–153; RESP 13–31; TEMP 35.6–39.3; O2SAT 89–100; BMI 26.4
[2025-04-12] MEDS: METOCLOPRAMIDE INJ 5 MG/ML VIAL 2 ML 10 MG IVP ×2 (01:07→05:56)
--- NOTE | 2025-04-12 03:30 | XR_ITS ---
Examination: Abdomen AP single view Technique: AP portable supine abdomen, single view Exam date and time: April 12, 2025, 0311 hrs. Indications: Abdominal pain and distention this week, 16 hour delayed film post small bowel series Findings: Contrast now is present in significantly distended small bowel loops Impression: Small bowel obstruction pattern Additional delayed films will be obtained
--- NOTE | 2025-04-12 04:14 | XR_ITS ---
Examination: AP chest single view Technique one AP portable semiupright chest single view Date and time: April 12, 2025, 0434 hrs., Comparison 04/11/2025 Indications: Hypoxia shortness of breath today. Findings: Mild enlargement cardiac contour. Moderate vascular congestion including central vascular engorgement No yulia pulmonary edema No lobar pneumonia Orogastric tube is in the stomach, the tip is below the level of the film Prominent osteopenia with reversal shoulder arthroplasty Impression: Moderate vascular congestion
[2025-04-12 05:05] LABS: Base Excess 7 (-3-3); HCO3 34 mEq/L (20-26); Inspired O2, VO2 Liters 10 L/min; Inspired Oxygen, FIO2 21 %; O2 Saturation 80 % (91-98); PCO2 58 mmHg (32.0-48.0); pH, Arterial 7.38 (7.35-7.45)
[2025-04-12 05:13] LABS: Allen Test Not Performed; Puncture Site Left Brachial
[2025-04-12 05:14] LABS: PO2 50 mmHg (83-108)
--- NOTE | 2025-04-12 05:33 | EKG_ITS ---
[facility] Test Date: 2025-04-12 Pat Name: JOSE KRAUSE Department: Room: S254A Gender: Female Surveyor: JESSICA : 1955 Requested By: Ramona Wilde Order Number: [id number] Reading MD: Ramona Wilde Measurements Intervals [place] Rate: 152 P: 239 OK: 69 QRS: -20 QRSD: 79 T: 87 QT: 295 QTc: 470 Interpretive Statements SINUS TACHYCARDIA WITH SHORT OK INTERVAL, POSSIBLE ATRIAL FLUTTER MINIMAL VOLTAGE CRITERIA FOR LVH, CONSIDER NORMAL VARIANT ST ELEVATION, CONSIDER INFERIOR INJURY ACUTE CA Compared to ECG 04/10/2025 10:19:10 Myocardial infarct finding now present ST (T wave) deviation still present /store/S0/[id number].pdf
[2025-04-12 05:36] LABS: Basophils # (Auto) 0.1 Thou/mm3 (0.0-0.2); Basophils % (Auto) 1 % (0-2.5); Eosinophils # (Auto) 0.0 Thou/mm3 (0.0-0.5); Eosinophils % (Auto) 0 % (0-10); Hematocrit 39.4 % (36.0-46.0); Hemoglobin 12.6 g/dL (12.0-16.0); Immature Granulocytes Auto 0.04 Thou/mm3 (0.00-0.00); Lymphocytes # (Auto) 0.7 Thou/mm3 (1.0-4.8); Lymphocytes % (Auto) 7 % (10-50); Mean Corpuscular HGB Conc 32.0 g/dl (31.0-37.0); Mean Corpuscular Hemoglobin 32.1 pg (25.0-35.0); Mean Corpuscular Volume 100 fL (80-100); Monocytes # (Auto) 0.7 Thou/mm3 (0.0-0.8); Monocytes % (Auto) 7 % (0-12); Neutrophils # (Auto) 8.3 Thou/mm3 (1.8-7.7); Neutrophils % (Auto) 85 % (37-80); Nucleated Red Blood Cell # 0.00 Thou/mm3 (0.00-0.00); Nucleated Red Blood Cell % 0 /100 WBC (0); Platelet Count 328 Thou/mm3 (140-440); RDW Standard Deviation 56.0 fL (36.4-46.3); Red Blood Count 3.93 Miln/mm3 (4.00-5.20); White Blood Count 9.7 Thou/mm3 (3.6-11.0)
[2025-04-12 05:51] LABS: Base Excess, Venous 7 (-3-3); O2 Saturation, Venous 80 % (96-97); PCO2, Venous 58 mmHg (36-56); PO2, Venous 50 mmHg (15-58); pH, Venous 7.38 (7.33-7.66)
[2025-04-12] MEDS: HEPARIN SOD INJ 5000 UNIT/ML VIAL SC (05:55)
[2025-04-12] MEDS: SODIUM CHLORIDE 0.9% 250 ML 250 ML 999 ML IV (06:12)
[2025-04-12] MEDS: MORPHINE SULF INJ 4 MG/ML VIAL 2 MG IVP (06:19)
[2025-04-12 06:53] LABS: Alanine Aminotransferase 13 U/L (10-49); Albumin, Serum 4.8 gm/dL (3.4-4.8); Albumin/Globulin Ratio 1.3 (1.2-2.2); Alkaline Phosphatase 132 U/L (46-116); Anion Gap 22 (7-16); Aspartate Amino Transferase 35 U/L (0-34); BUN/Creatinine Ratio 7 Ratio (12-20); Bilirubin,Total 0.4 mg/dL (0.3-1.2); Blood Urea Nitrogen 50 mg/dL (9-23); Calcium 9.9 mg/dL (8.3-10.6); Calcium (Corrected) 9.9 mg/dL (8.5-10.1); Carbon Dioxide 31.0 mMol/L (20.0-31.0); Chloride 86 mMol/L (98-107); Creatinine (Component) 7.0 mg/dL (0.6-1.3); Estimated Creatinine Clearance 6.7 mL/min (>60); Globulin 3.7 gm/dL (2.3-3.5); Glucose 125 mg/dL (74-106); Magnesium 2.6 mg/dL (1.6-2.6); Osmolality,Calculated 291 (275-295); Phosphorous 6.2 mg/dL (2.4-5.1); Potassium 5.2 mMol/L (3.4-5.1); Sodium 139 mMol/L (136-145); Total Protein 8.5 gm/dL (5.7-8.2); eGFR 6 See Note
[2025-04-12 07:13] LABS: Troponin I 0.193 ng/mL (0.0-0.045)
--- NOTE | 2025-04-12 07:30 | XR_ITS ---
Examination: Abdomen AP single view Technique: AP portable supine abdomen, single view Exam date and time: April 12, 2025, 0715 hrs. Indications: Abdominal pain and distention this week, 20 hour delayed film post small bowel series yesterday Findings: Contrast remains in distended small bowel loops Impression: High-grade small bowel obstruction
[2025-04-12] MEDS: ALBUMIN HUMAN 25% IVPB 25 GM/100 ML BTL IV (08:32)
--- NOTE | 2025-04-12 11:14 | PC.CC ---
1114-Per assigned RN pt has a SBO and scheduled for surgery today. Pt had a high heart rate last night, but is now stable. Vitals are good and pt is ready for surgery today. At this time, there is no concrete d/c date, but may d/c in the next few days.
[2025-04-12 11:15] LABS: Troponin I 0.194 ng/mL (0.0-0.045)
[2025-04-12 11:26] LABS: Basophils # (Auto) 0.1 Thou/mm3 (0.0-0.2); Basophils % (Auto) 1 % (0-2.5); Eosinophils # (Auto) 0.0 Thou/mm3 (0.0-0.5); Eosinophils % (Auto) 0 % (0-10); Hematocrit 38.4 % (36.0-46.0); Hemoglobin 12.1 g/dL (12.0-16.0); Immature Granulocytes Auto 0.09 Thou/mm3 (0.00-0.00); Lymphocytes # (Auto) 0.8 Thou/mm3 (1.0-4.8); Lymphocytes % (Auto) 9 % (10-50); Mean Corpuscular HGB Conc 31.5 g/dl (31.0-37.0); Mean Corpuscular Hemoglobin 31.8 pg (25.0-35.0); Mean Corpuscular Volume 101 fL (80-100); Monocytes # (Auto) 0.9 Thou/mm3 (0.0-0.8); Monocytes % (Auto) 10 % (0-12); Neutrophils # (Auto) 7.2 Thou/mm3 (1.8-7.7); Neutrophils % (Auto) 80 % (37-80); Nucleated Red Blood Cell # 0.00 Thou/mm3 (0.00-0.00); Nucleated Red Blood Cell % 0 /100 WBC (0); Platelet Count 283 Thou/mm3 (140-440); RDW Standard Deviation 56.2 fL (36.4-46.3); Red Blood Count 3.80 Miln/mm3 (4.00-5.20); White Blood Count 9.1 Thou/mm3 (3.6-11.0)
[2025-04-12 11:39] LABS: INR 1.0 (0.9-1.3); Partial Thromboplastin Time 31.6 Seconds (22.0-36.0); Prothrombin Time 11.4 Seconds (9.0-12.2)
--- NOTE | 2025-04-12 11:41 | PD.SURPROG ---
Documentation for date of: 04/12/25 Subjective Subjective Narrative: Patient is seen and examined. She has not had bowel movement or flatus Exam Vital Signs Temp Pulse Resp BP Pulse Ox O2 Del Method O2 Flow Rate 96.0 F L 119 H 23 H 103/79 95 Oxy Mask 25 04/12/25 10:43 04/12/25 10:43 04/12/25 10:43 04/12/25 10:43 04/12/25 10:43 04/11/25 16:00 04/12/25 06:19 FiO2 75 04/12/25 10:43 Constitutional Constitutional: no acute distress Routine Abdominal Exam Comments: Abdomen is soft and minimally distended. She has tenderness to deep palpation, no peritonitis at this time Assessment & Plan Assessment Additional comments: Persistent small bowel obstruction. Repeat small bowel series shows finding of high-grade small bowel obstruction Plan Patient will be taken to the operating room for exploratory laparotomy, possible bowel resection, possible ostomy. Risks include but not limited to infection, bleeding, injury to bowel, abdominal sepsis and or abdominal abscess, need for further procedure and or operation, pneumonia, blood clot, heart attack, stroke and discussed with the patient, her brother Nitin Noel and patient's daughter Theodora Triplett for telephone conversation. All their questions answered, they agreed and gave verbal consent to proceed with the operation.
[2025-04-12 11:44] LABS: Alanine Aminotransferase 13 U/L (10-49); Albumin, Serum 5.3 gm/dL (3.4-4.8); Albumin/Globulin Ratio 1.7 (1.2-2.2); Alkaline Phosphatase 120 U/L (46-116); Anion Gap 18 (7-16); Aspartate Amino Transferase 39 U/L (0-34); BUN/Creatinine Ratio 6 Ratio (12-20); Bilirubin,Total 0.5 mg/dL (0.3-1.2); Blood Urea Nitrogen 23 mg/dL (9-23); Calcium 10.5 mg/dL (8.3-10.6); Calcium (Corrected) 10.5 mg/dL (8.5-10.1); Carbon Dioxide 26.6 mMol/L (20.0-31.0); Chloride 95 mMol/L (98-107); Creatinine (Component) 3.6 mg/dL (0.6-1.3); Estimated Creatinine Clearance 12.9 mL/min (>60); Globulin 3.2 gm/dL (2.3-3.5); Glucose 124 mg/dL (74-106); Osmolality,Calculated 284 (275-295); Potassium 4.2 mMol/L (3.4-5.1); Sodium 140 mMol/L (136-145); Total Protein 8.5 gm/dL (5.7-8.2); eGFR 13 See Note
--- NOTE | 2025-04-12 12:17 | ESCONSULT_ITS ---
<Statement entered by Sal Jeffers MD - 04/12/25 18:46> Senior Resident Attestation: I supervised/discussed management plan with internet specialist physician Dr. Kelley, and was involved in the care of this patient. I personally saw and examined the patient and discussed the assessment and plan with the entire medicine team, including my attending. I agree with the assessment and plan as documented. Patient is a 69 years old female with PMH of ESRD on HD M/W/F, insulin-dependent diabetes mellitus, hypertension, CVA with residual left-sided weakness was upgraded to ICU after undergoing exploratory laparatomy due to high grade SBO. Patient was transferred to ICU intubated and mechanically ventilated. Her hemodynamic was stable other than sinus tachycardia. Will continue on antibiotic and NG tube suctioning. Plan to extubate her tomorrow if pass SBT. Will follow up on repeat H&H. Patient was previously in ICU due to hypovolemia and hypoxia but was downgraded to telemetry yesterday in stable condition. Patient's care was discussed with attending physician, Dr. Reeves. Sal Jeffers MD PGY-3. HPI Data of Consult Requesting Physician: Kan Moreno MD Admitting Provider: Arnol Graff MD Attending Provider: Kan Moreno MD Primary Care Provider: Anita Bobby Consult Narrative History of present illness: Nani Triplett is a 69-year-old female with past medical history of ESRD on HD M/W/F, insulin-dependent diabetes mellitus, hypertension, CVA with residual left-sided weakness, and left shoulder surgery who presented to [facility] emergency department in the second crusher of 04/09/25 with a chief complaint of nausea, vomiting, and abdominal pain and was eventually admitted for SBO confirmed on 04/09 SBS. Patient was initially upgraded to the ICU on 04/10 after a hypoxic episode thought 2/2 large volume losses via NG tube and HD (chest CTA ruled out PE) occurred during HD session with accompanying lactic acidosis and hypoxemia. She was clinically stabilized in the ICU and downgraded to floors on 04/11 before undergoing exploratory laparotomy by General Surgery on 04/12 due to repeat confirmation of SBO with 04/11 repeat SBS. Per General Surgery Operative Report, patient underwent exploratory laparotomy and it was found that patient had 2 large pieces of what appeared to be fruit (possibly marlene seeds) causing complete bowel obstruction at the proximal ileum. Enterotomy was performed to remove the 2 foreign objects and the small bowel was decompressed; in total, blood loss after the surgery was estimated to be 10 mL. Patient was ultimately readmitted to the ICU on 04/12 due to ongoing need for intubation s/p exploratory laparotomy with enterotomy performed to treat SBO. cc:: cc: Kan Moreno MD Review of Systems Review of Systems ROS Unobtainable: unobtainable due to mental status and due to endotracheal tube Exam Vital Signs Temp Pulse Resp BP Pulse Ox O2 Del Method O2 Flow Rate 96.0 F L 119 H 23 H 103/79 95 Oxy Mask 04/12/25 10:43 04/12/25 10:43 04/12/25 10:43 04/12/25 10:43 04/12/25 10:43 04/11/25 16:00 04/12/25 06:19 FiO2 75 04/12/25 10:43 Narrative Exam General: Sleeping elderly female in NAD. Skin: Warm, dry, intact, no obvious rash. Head: Normocephalic, atraumatic. Eyes: PERRL. Anicteric. Previously (04/11) - EOMI. Ears: No ear discharge. Nose: Nasogastric tube draining dark green, bilious fluid. Mouth/Throat: Oral mucosa dry. No obvious lesions in oropharynx. Cardiovascular: Tachycardic rate and rhythm, no murmur, no JVD or carotid bruits. +S1/S2. Respiratory: Intubated on volume control ventilatory support. Bilateral lungs seem clear to auscultation but are bit difficult to hear. Respirations unlabored, no crackles, no wheezing. No accessory muscle use. Gastrointestinal: Soft, non-distended. No palpable masses. Hypoactive bowel sounds when listening at RLQ. Extremities: AV fistula at right upper extremity noted. No edema, no cyanosis, no clubbing. 2+ radial pulse bilaterally, 2+ posterior tibial pulse bilaterally. Pes cavus. Results Labs 04/12/25 11:08 04/12/25 11:08 Labs: Short CBC 04/12/25 04/12/25 Range/Units 04:28 11:08 WBC 9.7 9.1 (3.6-11.0) Thou/mm3 Hgb 12.6 12.1 (12.0-16.0) g/dL Hct 39.4 38.4 (36.0-46.0) % Plt Count 328 D 283 D (140-440) Thou/mm3 BMP 04/12/25 04/12/25 04:28 11:08 Sodium 139 140 Potassium 5.2 H 4.2 D Chloride 86 L 95 L Carbon Dioxide 31.0 26.6 BUN 50 H 23 Creatinine 7.0 H* D 3.6 H D Glucose 125 H 124 H Calcium 9.9 10.5 Cardiac Enzymes 04/12/25 04/12/25 Range/Units 04:28 10:25 Troponin I 0.193 H* 0.194 H* (0.0-0.045) ng/mL Liver Function 04/12/25 04/12/25 Range/Units 04:28 11:08 Total Bilirubin 0.4 0.5 (0.3-1.2) mg/dL AST 35 H 39 H (0-34) U/L ALT 13 13 (10-49) U/L Alkaline Phosphatase 132 H 120 H (46-116) U/L Albumin 4.8 5.3 H D (3.4-4.8) gm/dL ABG Interpretation ABG results: 04/10/25 04/12/25 11:00 04:57 ABG pH 7.45 7.38 ABG pCO2 60 H 58 H ABG pO2 79 L 50 L* D ABG HCO3 42 H 34 H ABG O2 Saturation 96 80 L ABG Base Excess 16 H 7 H VBG pH 7.38 VBG pCO2 58 H VBG pO2 50 VBG Base Excess 7 H Quality Measures Quality Measures none Advance care planning discussed with:: patient Medications Home Medications and Allergies Home Medications ?Medication ?Instructions ?Recorded ?Confirmed ?Type amlodipine 5 mg tablet 10 mg PO QAM 07/30/21 History sevelamer carbonate 800 mg tablet 800 mg PO TIDWM 07/2004/09/25 History hydralazine 50 mg tablet 100 mg PO TID 10/02/2104/09 History hydrocodone 10 mg-acetaminophen 5 tab PO QDAY PRN Pain 10/02/21 04/09/25 History 325 mg tablet albuterol sulfate 2.5 mg/3 mL 3 ml continuous nebuliza tion TID 12/04/21 04/09/25 History (0.083 %) solution for nebulization PRN WHEEZING lidocaine 5 % topical patch 1 patch topical QDAY 08/0104/09/25 History ropinirole 4 mg tablet 4 mg PO DAILY 08/01/2204/09 History gabapentin 300 mg capsule 300 mg PO 3XD 12/28/2304/09 History metoprolol succinate 100 mg 100 mg PO QMORNING 4 04/09/25 History tablet,extended release 24 hr Held on 04/09/25. Instructions: Doctor's Order omeprazole 40 mg capsule,delayed 40 mg PO QDAY 4 04/09/25 History release sodium zirconium cyclosilicate 10 10 g PO QDAY 4 04/09/25 History gram oral powder packet (Lokelne) vitamin B comp no.3-folic acid 1 1 tab PO QDAY 5 04/09/25 History mg-vit C 60 mg-biotin 300 mcg tablet ([facility]) Allergies Allergy/AdvReac Type Severity Reaction Status Date / Time sulfamethoxazole Allergy Unknown Swelling Verified 04/09/25 01:07 of Lip/Tongue/Throat trimethoprim Allergy Unknown Swelling Verified 04/09/25 01:07 of Lip/Tongue/Throat Visit Medications Acetaminophen (Acetaminophen 325 Mg Tablet) 650 mg PO Q6H PRN PRN Reason: PAIN OR FEVER > 100.4 Stop: 05/09/25 11:33 Dextrose (Dextrose 50%-Water Inj 50 Ml Syringe) 50 ml IV Q15MIN PRN PRN Reason: BG <50 OR BG <70 & pt unresponsive Stop: 05/09/25 02:32 Glucagon (Glucagon Inj 1 Mg Vial) 1 mg IM Q15MIN PRN PRN Reason: BG <70, and no IV access Heparin Sodium (Porcine) (Heparin Sod Inj 5000 Unit/Ml Vial) 5,000 unit SC Q8HR NADEEM Stop: 04/24/25 13:59 Last Admin: 04/12/25 05:55 Dose: 5,000 unit Albumin Human (Albuminar-25 Ivpb) 25 gm in 100 mls @ 100 mls/min IV QDAY PRN PRN Reason: dialysis Insulin Human Lispro (Insulin Lispro (Admelog) 1 Unit/0.01 Ml Unit) 0 unit SC Q6HR NADEEM; Protocol Stop: 05/09/25 17:59 Last Admin: 04/12/25 05:40 Dose: Not Given Lidocaine (Lidocaine 5% 1 Patch) 1 patch TOP UD PRN; Protocol PRN Reason: PAIN Stop: 05/09/25 18:49 Metoclopramide HCl (Metoclopramide Inj 5 Mg/Ml Vial 2 Ml) 10 mg IVP Q6HR NADEEM; Protocol Stop: 05/10/25 08:59 Last Admin: 04/12/25 05:56 Dose: 10 mg Metoprolol Tartrate (Metoprolol Tartrate Inj 1 Mg/Ml Amp 5 Ml) 2 mg IVP X1 PRN PRN Reason: HR > 130 Midodrine (Midodrine 5 Mg Tablet) 10 mg PO TID PRN PRN Reason: SBP <95 Stop: 05/12/25 08:44 Ondansetron HCl (Ondansetron Inj 2 Mg/Ml Inj 2 Ml) 4 mg IVP Q6H PRN; Protocol PRN Reason: NAUSEA OR VOMITING Stop: 05/09/25 11:33 Last Admin: 04/09/25 21:51 Dose: 4 mg Sodium Chloride (Sodium Chloride Rt Ree 0.9% 3 Ml Nebu) 3 ml INH PRN PRN PRN Reason: SOLN Stop: 05/09/25 02:36 Discontinued Medications Albuterol (Albuterol Rt 2.5 Mg/0.5 Ml Nebu) 10 mg INH X1 ONE Stop: 04/09/25 02:38 Last Admin: 04/09/25 02:46 Dose: 10 mg Bisacodyl (Bisacodyl 10 Mg Supp) 10 mg [place] X1 ONE; Protocol Stop: 04/10/25 08:47 Last Admin: 04/10/25 16:04 Dose: Not Given Bisacodyl (Bisacodyl 10 Mg Supp) 10 mg [place] X1 ONE; Protocol Stop: 04/10/25 16:16 Last Admin: 04/10/25 16:05 Dose: 10 mg Calcium Gluconate (Calcium Gluconate 10% Inj 1 Gm/10 Ml Vial) 1 gm IV X1 ONE Stop: 04/09/25 02:36 Last Admin: 04/09/25 03:28 Dose: 1 gm Dextrose (Dextrose 50%-Water Inj 50 Ml Syringe) 25 ml IV Q15MIN PRN PRN Reason: BG 50-70 responsive npo pt Stop: 05/09/25 02:32 Dextrose (Dextrose 50%-Water Inj 50 Ml Syringe) 100 ml IV X1 ONE Stop: 04/09/25 02:34 Last Admin: 04/09/25 03:18 Dose: 100 ml Furosemide (Furosemide Inj 10 Mg/Ml Vial 2 Ml) 40 mg IVP X1 ONE Stop: 04/09/25 02:34 Last Admin: 04/09/25 03:27 Dose: 40 mg Piperacillin Sod/Tazobactam (Sod 4.5 gm/ Sodium Chloride) 100 mls @ 200 mls/hr IV STAT STA; Protocol Stop: 04/09/25 08:34 Last Infusion: 04/09/25 10:16 Dose: Infused Acetaminophen (Ofirmev Inj) 1,000 mg in 100 mls @ 250 mls/hr IV STAT STA Stop: 04/09/25 08:32 Last Infusion: 04/09/25 10:16 Dose: Infused Lactated Ringer's (Lactated Ringers) 500 mls @ 500 mls/hr IV .Q1H ONE Stop: 04/09/25 12:20 Last Infusion: 04/09/25 12:44 Dose: Infused Ceftriaxone Sodium/Dextrose (Rocephin/D5w 1gm Iv Premix) 1 gm in 50 mls @ 100 mls/hr IV QDAY@1400 NADEEM Stop: 04/16/25 16:11 Last Admin: 04/10/25 13:59 Dose: 100 mls/hr Metronidazole (Flagyl 500 Mg Iv) 500 mg in 100 mls @ 200 mls/hr IV Q8HR NADEEM Stop: 04/16/25 16:12 Last Admin: 04/11/25 06:03 Dose: 200 mls/hr Acetaminophen (Ofirmev Inj) 1,000 mg in 100 mls @ 250 mls/hr IV Q6HR NADEEM Stop: 04/10/25 12:23 Last Admin: 04/10/25 14:01 Dose: 250 mls/hr Albumin Human (Albuminar-25 Ivpb) 25 gm in 100 mls @ 100 mls/hr IV PRN PRN PRN Reason: DIALYSIS Last Admin: 04/12/25 08:32 Dose: 100 mls/hr Albumin Human (Albuminar-25 Ivpb) 25 gm in 100 mls @ 100 mls/hr IV PRN PRN PRN Reason: DIALYSIS Albumin Human (Albuminar-25 Ivpb) 25 gm in 100 mls @ 6,000 mls/hr IV PRN PRN PRN Reason: DIALYSIS Last Admin: 04/10/25 12:45 Dose: 6,000 mls/hr Lactated Ringer's (Lactated Ringers) 500 mls @ 999 mls/hr IV .Q31M ONE Stop: 04/10/25 16:17 Last Admin: 04/10/25 16:04 Dose: 999 mls/hr Lactated Ringer's (Lactated Ringers) 500 mls @ 500 mls/hr IV .Q1H ONE Stop: 04/10/25 18:31 Last Admin: 04/11/25 15:37 Dose: Not Given Lactated Ringer's (Lactated Ringers) 1,000 mls @ 999 mls/hr IV .Q1H1M ONE Stop: 04/10/25 20:10 Last Admin: 04/10/25 19:38 Dose: 999 mls/hr Acetaminophen (Ofirmev Inj) 1,000 mg in 100 mls @ 250 mls/hr IV X1 ONE Stop: 04/11/25 10:48 Last Admin: 04/11/25 10:34 Dose: 250 mls/hr Lactated Ringer's (Lactated Ringers) 1,000 mls @ 999 mls/hr IV .Q1H1M ONE Stop: 04/11/25 11:31 Last Admin: 04/11/25 10:35 Dose: 999 mls/hr Sodium Chloride (Ns) 250 mls @ 999 mls/hr IV .Q16M ONE Stop: 04/12/25 06:19 Last Admin: 04/12/25 06:12 Dose: 999 mls/hr Influenza Virus Vaccine Quadrival (Influenza Virus Quadrivalent 0.5 Ml Syringe) 0.5 ml IMi .ONCE ONE Stop: 04/09/25 16:54 Insulin Human Regular (Insulin Hum Regular 1 Unit/0.01 Ml (Per Unit)) 5 unit IV X1 ONE Stop: 04/09/25 02:34 Last Admin: 04/09/25 03:18 Dose: 5 unit Lidocaine HCl (Lidocaine Hcl 1% 20 Ml Vial) 10 ml INFL X1 ONE Stop: 04/10/25 20:03 Last Admin: 04/10/25 22:00 Dose: 5 ml Metoprolol Tartrate (Metoprolol Tartrate Inj 1 Mg/Ml Amp 5 Ml) 2 mg IVP X1 ONE Stop: 04/12/25 06:00 Last Admin: 04/12/25 06:13 Dose: Not Given Midodrine (Midodrine 5 Mg Tablet) 10 mg PO TID PRN PRN Reason: Hypotension Stop: 05/10/25 13:59 Last Admin: 04/10/25 07:59 Dose: 10 mg Morphine Sulfate (Morphine Sulf Inj 4 Mg/Ml Vial) 2 mg IVP STAT STA Stop: 04/09/25 11:15 Last Admin: 04/09/25 11:25 Dose: 2 mg Morphine Sulfate (Morphine Sulf Inj 4 Mg/Ml Vial) 2 mg IVP X1 ONE Stop: 04/12/25 06:13 Last Admin: 04/12/25 06:19 Dose: 2 mg Morphine Sulfate (Morphine Sulf Inj 4 Mg/Ml Vial) 2 mg IVP X1 ONE Stop: 04/12/25 06:14 Last Admin: 04/12/25 06:16 Dose: Not Given Ondansetron HCl (Ondansetron Inj 2 Mg/Ml Inj 2 Ml) 4 mg IVP X1 ONE; Protocol Stop: 04/09/25 01:13 Last Admin: 04/09/25 01:28 Dose: 4 mg Sodium Bicarbonate (Sodium Bicarb Inj 8.4% Syr 50 Ml Syringe) 50 ml IV X1 ONE Stop: 04/09/25 02:34 Last Admin: 04/09/25 03:34 Dose: 50 ml Assessment & Plan Plan Nani Triplett is a 69-year-old female with past medical history of ESRD on HD M/W/F, insulin-dependent diabetes mellitus, hypertension, CVA with residual left-sided weakness, and left shoulder surgery who presented to [facility] emergency department in the second crusher of 04/09/25 with a chief complaint of nausea, vomiting, and abdominal pain and was eventually admitted for SBO confirmed on 04/09 SBS. Per General Surgery Operative Report, patient underwent exploratory laparotomy and it was found that patient had 2 large pieces of what appeared to be fruit (possibly marlene seeds) causing complete bowel obstruction at the proximal ileum. Enterotomy was performed to remove the 2 foreign objects and the small bowel was decompressed; in total, blood loss after the surgery was estimated to be 10 mL. Patient was ultimately readmitted to the ICU on 04/12 due to ongoing need for intubation s/p exploratory laparotomy with enterotomy performed to treat SBO. NEURO #Chemical sedation Rx: -IV fentanyl titrated to maintain RASS 0 (alert and calm) -Daily SATs CARDIO No active issues PULM #Intubated s/p exploratory laparotomy and enterotomy Dx: -04/12 ABG (after procedure) showed pH 7.38, pCO2 44, pO2 196, HCO3 26.6 Rx: -Evaluate appropriateness for extubation by SBT (patient breathes without assistance for 30-120 minutes on pressure support 5 Inspiratory Pressure, 5 PEEP), RSBI 20 (RR/TV < 105), peak inspiratory pressure 23.1 (less than or equal to 25), FiO2 less than 40% (currently 40%) and cuff leak test with audible airflow around deflated cuff to r/o laryngeal edema -Ordered sputum culture -Chest physiotherapy once extubated GI #High-grade SBO, s/p exploratory laparotomy Per General Surgery Operative Report, patient underwent exploratory laparotomy and it was found that patient had 2 large pieces of what appeared to be fruit (possibly marlene seeds) causing complete bowel obstruction at the proximal ileum. Enterotomy was performed to remove the 2 foreign objects and the small bowel was decompressed; in total, blood loss after the surgery was estimated to be 10 mL. Rx: -IV cefoxitin 1 gm q12HR [04/12--] -Monitor wound healing progress #Transaminitis Dx: -AST up-trended to 39 from 33 yesterday, ALT 13 -04/10 chest CTA showed fatty infiltration throughout the liver Rx: -Continue to monitor NEPHRO #ESRD on HD, (M/W/F, follows Dr. Gunderson) Dx: -04/09 CTAP showed atrophic kidneys with significant renal scarring, perinephric stranding, and a lower pole 26 mm left renal cyst Rx: -Continue HD as needed per Nephrology URO #No active problems HEME #No active problems ENDO #Insulin-dependent diabetes mellitus, in setting of ESRD Last recorded hemoglobin A1c within diabetic range was in June 2020, with all later hemoglobin A1c readings not meeting criteria for diabetes or pre- diabetes However, patient has ESRD which can lead to falsely reduced A1c from shortened lifespan of hemoglobin 2/2 uremia and inflammation Dx: -04/10/25 hemoglobin A1c = 4.9 -06/26/20 hemoglobin A1c = 6.3 Rx: -Insulin sliding scale -Blood glucose checks q6HR ID #No active problems MSK #No active problems SKIN #No active problems Disposition: Patient continues to meet criteria for ongoing ICU admission due to intubated status. DVT prophylaxis: SCDs (s/p 04/12 exploratory laparotomy for SBO) GI prophylaxis: None Diet: NPO Sahu: None Lines: Peripheral IV Antibiotics: IV cefoxitin 1 gm q12HR [04/12--] CODE STATUS: FULL Patient plan of care was discussed with the attending laborer stores, Dr. Reeves. Quinten Kelley, DO Internal Medicine, PGY-1
--- NOTE | 2025-04-12 12:57 | ESOP_ITS ---
Date of Procedure 04/12/25 Pre Op Diagnosis Small bowel obstruction Post Op Diagnosis Complete small bowel obstruction Procedure Exploratory laparotomy, enterotomy with removal of 2 foreign objects causing complete bowel obstruction Small bowel decompression Findings Complete small bowel obstruction from 2 large pieces of what appeared to be fruit Procedure Description Patient brought into the operating room in supine position. After administration of general tracheal anesthesia, patient's abdomen prepped and draped in standard surgical manner. A laparotomy incision was made from above the umbilicus, to the right and around the umbilicus and extended just below the umbilicus. Dissection was deepened into soft tissue. Anterior abdominal fascia was divided. She was noted to have minimal amount of adhesions in the infraumbilical region that were lysed. The small bowel was noted to be significantly dilated. The small bowel was eviscerated, was run from ligament of Treitz up to proximal ileum. At the proximal ileum patient was noted to have 2 large pieces of foreign objects that were causing complete bowel obstruction. Distal to the area of obstruction the small bowel was completely decompressed. Proximal to the area of obstruction an approximately 3 cm enterotomy was performed, the proximal small bowel was decompressed with a suction tube. The foreign bodies were milked retrograde and were removed from the enterotomy site. These pieces appeared to be large pieces of undigested fruit. Once the proximal small bowel was decompressed, the enterotomy site was closed in transverse fashion with running 2-0 Vicryl and reinforced with 3-0 silk suture in Lembert fashion. The remainder of the small bowel was inspected, there was no further areas of obstruction or any foreign bodies noted. The appendix was normal. No obvious evidence of any mass, foreign bodies or any tumor in the large intestine noted. Abdomen and pelvis copiously and thoroughly washed and irrigated, all the fluids were suctioned and the suction fluid returned clear. Hemostasis was adequate and satisfactory. Anterior abdominal fascia was closed with running 0 PDS and further reinforced with interrupted sutures using #1 Vicryl. The wound was washed and irrigated and incision was closed with kathy. Sterile dressings applied. Patient tolerated procedure well. She remained hemodynamically stable. She will be kept intubated and transferred to intensive care unit. Instruments, needles and sponge counts were reported to be correct x 2. Anesthesia GETA and local Pathology / specimen Other (2 foreign bodies retrieved from small bowel) Estimated Blood Loss 10 Condition Stable Disposition ICU Surgeon Royal Jack MD Surgical Staff Operation Date: 04/12/25 11:45 Case Staff PROJECT PRODUCT MANAGER: Josue Pineda RN First Assistant: Any Smyth
--- NOTE | 2025-04-12 13:11 | PC.NURSE ---
NOT DONE PT IN OR
--- NOTE | 2025-04-12 13:13 | ESPR_ITS ---
Documentation for date of: 04/12/25 Subjective Subjective Interval history: Overnight patient saturations dropped into the 80s and was placed on HFNC. Additionally, heart rate reached into the 140s and was given 2 mg IV push of metoprolol tartrate, 2 mg IV push of morphine. At bedside, BP was 80s over 50s, suspect to be due to metoprolol and morphine in setting of ESRD. Small bowel series revealed high-grade small bowel obstruction and patient was then taken to the OR for ex lap, which found a complete SBO from 2 large pieces of what appeared to be. Afterwards, patient was left intubated and transferred to the ICU for further management. Exam Vital Signs Temp Pulse Resp BP Pulse Ox O2 Del Method O2 Flow Rate 96.0 F L 119 H 23 H 103/79 95 Oxy Mask 25 04/12/25 10:43 04/12/25 10:43 04/12/25 10:43 04/12/25 10:43 04/12/25 10:43 04/11/25 16:00 04/12/25 06:19 FiO2 75 04/12/25 10:43 Narrative Exam General: Alert and appears more fatigued/tired compared to prior, NGT in place HEENT: Normocephalic, Atraumatic. Normal neck range of motion, Supple. Trachea midline. Respiratory: Lungs are clear to auscultation, Breath sounds are equal bilaterally with equal chest expansion. Cardiovascular: RRR, normal S1, S2, no murmurs Abdomen: Abdomen non-distended, without erythema, or lesions. Diminished/absent bowel sounds x 4 percussion dull. Musculoskeletal: No erythema, swelling, tenderness of any joints. Neurologic: NEURO: Oriented x3, cranial nerves II to XII grossly intact. Left upper extremity paralysis and loss of sensation residual effect of CVA in 2023 Objective Labs 04/12/25 18:44 04/12/25 14:00 Labs: Laboratory Results - last 24 hr 04/10/25 04/12/25 04/12/25 05:21 04:28 04:57 WBC 9.7 RBC 3.93 L Hgb 12.6 Hct 39.4 MCV 100 MCH 32.1 MCHC 32.0 RDW Std Deviation 56.0 H Plt Count 328 D Neut % (Auto) 85 H Lymph % (Auto) 7 L [place] % (Auto) 7 Eos % (Auto) 0 Baso % (Auto) 1 Neut # (Auto) 8.3 H Lymph # (Auto) 0.7 L [place] # (Auto) 0.7 Eos # (Auto) 0.0 Baso # (Auto) 0.1 Immature Gran # (Auto) 0.04 H Absolute Nucleated RBC 0.00 Immature Gran % 0 Nucleated RBC % 0 PT INR APTT Puncture Site Left Brachial ABG pH 7.38 ABG pCO2 58 H ABG pO2 50 L* D ABG HCO3 34 H ABG O2 Saturation 80 L ABG Base Excess 7 H VBG pH 7.38 VBG pCO2 58 H VBG pO2 50 VBG O2 Sat ([place]ilar) 80 L VBG Base Excess 7 H Oxygen Liter Flow 10 FiO2 21 Sodium 139 Potassium 5.2 H Chloride 86 L Carbon Dioxide 31.0 Anion Gap 22 H BUN 50 H Creatinine 7.0 H* D Estim Creat Clear Calc 6.7 L eGFR 6 L* BUN/Creatinine Ratio 7 L Glucose 125 H Calculated Osmolality 291 Calcium 9.9 Corrected Calcium 9.9 Phosphorus 6.2 H Magnesium 2.6 Total Bilirubin 0.4 AST 35 H ALT 13 Alkaline Phosphatase 132 H Troponin I 0.193 H* Total Protein 8.5 H Albumin 4.8 Globulin 3.7 H Albumin/Globulin Ratio 1.3 Hepatitis C Antibody Non Reactive Blood Type Antibody Screen Blood Bank Wristband ID 04/12/25 04/12/25 10:25 11:08 WBC 9.1 RBC 3.80 L Hgb 12.1 Hct 38.4 MCV 101 H MCH 31.8 MCHC 31.5 RDW Std Deviation 56.2 H Plt Count 283 D Neut % (Auto) 80 Lymph % (Auto) 9 L [place] % (Auto) 10 Eos % (Auto) 0 Baso % (Auto) 1 Neut # (Auto) 7.2 Lymph # (Auto) 0.8 L [place] # (Auto) 0.9 H Eos # (Auto) 0.0 Baso # (Auto) 0.1 Immature Gran # (Auto) 0.09 H Absolute Nucleated RBC 0.00 Immature Gran % 1 H Nucleated RBC % 0 PT 11.4 INR 1.0 APTT 31.6 Puncture Site ABG pH ABG pCO2 ABG pO2 ABG HCO3 ABG O2 Saturation ABG Base Excess VBG pH VBG pCO2 VBG pO2 VBG O2 Sat ([place]) VBG Base Excess Oxygen Liter Flow FiO2 Sodium 140 Potassium 4.2 D Chloride 95 L Carbon Dioxide 26.6 Anion Gap 18 H BUN 23 Creatinine 3.6 H D Estim Creat Clear Calc 12.9 L eGFR 13 L* BUN/Creatinine Ratio 6 L Glucose 124 H Calculated Osmolality 284 Calcium 10.5 Corrected Calcium 10.5 H Phosphorus Magnesium Total Bilirubin 0.5 AST 39 H ALT 13 Alkaline Phosphatase 120 H Troponin I 0.194 H* Total Protein 8.5 H Albumin 5.3 H D Globulin 3.2 Albumin/Globulin Ratio 1.7 Hepatitis C Antibody Blood Type A Positive Antibody Screen NEGATIVE Blood Bank Wristband ID Yes ABG Interpretation ABG results: 04/10/25 04/12/25 11:00 04:57 ABG pH 7.45 7.38 ABG pCO2 60 H 58 H ABG pO2 79 L 50 L* D ABG HCO3 42 H 34 H ABG O2 Saturation 96 80 L ABG Base Excess 16 H 7 H VBG pH 7.38 VBG pCO2 58 H VBG pO2 50 VBG Base Excess 7 H Quality Measures Quality Measures none Advance care planning discussed with:: patient Assessment & Plan Assessment Current Active Medications: Generic Name Dose Route Start Last Admin Trade Name Freq PRN Reason Stop Dose Admin Acetaminophen 650 mg 04/09/25 11:34 Acetaminophen 325 Mg Tablet PO 05/09/25 11:33 Q6H PRN PAIN OR FEVER > 100.4 Dextrose 50 ml 04/09/25 02:33 Dextrose 50%-Water Inj 50 Ml Syringe IV 05/09/25 02:32 Q15MIN PRN BG <50 OR BG <70 & pt unresponsive Glucagon 1 mg 04/09/25 02:33 Glucagon Inj 1 Mg Vial IM Q15MIN PRN BG <70, and no IV access Heparin Sodium (Porcine) 5,000 unit 04/10/25 14:00 04/12/25 05:55 Heparin Sod Inj 5000 Unit/Ml Vial SC 04/24/25 13:59 5,000 unit Q8HR [facility] Administration Albumin Human 25 gm in 100 mls @ 100 mls/min 04/12/25 09:28 Albuminar-25 Ivpb IV QDAY PRN dialysis Insulin Human Lispro 0 unit 04/09/25 18:00 04/12/25 05:40 Insulin Lispro (Admelog) 1 Unit/0.01 Ml Unit SC 05/09/25 17:59 Not Given Q6HR NADEEM Protocol Lidocaine 1 patch 04/09/25 18:50 Lidocaine 5% 1 Patch TOP 05/09/25 18:49 UD PRN PAIN Protocol Metoclopramide HCl 10 mg 04/10/25 09:00 04/12/25 05:56 Metoclopramide Inj 5 Mg/Ml Vial 2 Ml IVP 05/10/25 08:59 10 mg Q6HR NADEEM Administration Protocol Metoprolol Tartrate 2 mg 04/12/25 06:00 Metoprolol Tartrate Inj 1 Mg/Ml Amp 5 Ml IVP X1 PRN HR > 130 Midodrine 10 mg 04/12/25 08:37 Midodrine 5 Mg Tablet PO 05/12/25 08:44 TID PRN SBP <95 Ondansetron HCl 4 mg 04/09/25 11:34 04/09/25 21:51 Ondansetron Inj 2 Mg/Ml Inj 2 Ml IVP 05/09/25 11:33 4 mg Q6H PRN Administration NAUSEA OR VOMITING Protocol Sodium Chloride 3 ml 04/09/25 02:37 Sodium Chloride Rt Ree 0.9% 3 Ml Nebu INH 05/09/25 02:36 PRN PRN SOLN Plan Nani Triplett is a 69-year-old female with past medical history of end-stage renal disease on hemodialysis M/W/F, diabetes mellitus, hypertension, CVA with residual left-sided weakness, who was brought in to the ED by daughter on 04/09/2025 for worsening left-sided abdominal pain and swelling the day before. Patient admitted for inpatient workup and management of SBO as found on imaging. #High-grade small bowel obstruction #Lactic acidosis, improving Presentd with failure to generate bowel movement, 10/10 abdominal pain, and diminished bowel sounds on physical exam but endorses ability to pass flatus. KUB showed small bowel obstruction pattern. CTAP confirmed SBO, additionally, 5 mm pulmonary nodule right middle lobe, atrophic kidneys with significant renal scarring, irregular urinary bladder wall thickening. Initial lactate 2.9 and peaked at 4.8 after hemodialysis but now downtrending. Repeat small bowel series showed high-grade SBO and was taken to OR for ex-lap. ? NGT placed, clamped for small bowel series evaluation ? General surgery consulted, appreciate recs ? Metoclopramide 10mg Q6h ? Zofran IVP 4mg Q6h PRN for nausea/vomiting ? IV fluids #ESRD on HD (M/W/F) #Hyperkalemia, resolved Followed by Dr. Gunderson in [place] ? Nephrology consulted, appreciate recs ? Midodrine 10 mg TID and albumen PRN for maintaining normal BP ? Avoid nephrotoxic agents, renally dose medications #Type 2 diabetes mellitus, at goal History of diabetes mellitus for more than 2 decades, on insulin. A1c 4.9%. ? SSI ? Hypoglycemic protocol in place #History of hypertension ? Hypo-/normotensive at this time, will hold off on antihypertensives Health Maintenance: Disposition: tele, pending surgery recommendations in the setting of confirmed SBO on repeat abdominal series Diet: N.p.o. PPx DVT: heparin 5000u SC Code Status: full ----- Plan discussed with attending physician Dr. Josh Ren MD PGY-2 Internal Medicine Attending Provider Attestation/Addendum I attest that I was physically present for the evaluation, physical examination, lab and imaging review of the patient with the residents. I discussed the case with the residents and agree with the findings and plans of care as documented above. Kan Moreno MD
--- NOTE | 2025-04-12 13:13 | PC.DIETICIAN ---
Nutrition prescription If EN is initiated: Nepro at 20 ml/hr via OG/NG/PEG tube by pump. Advance 10 ml every 8 hrs to goal rate of 35 ml/hr x 24 hrs. If no IV fluids, water flushes of 25 ml/hr (or per MD).
[2025-04-12 13:57] LABS: Base Excess 0 (-3-3); HCO3 27 mEq/L (20-26); Inspired Oxygen, FIO2 100 %; O2 Saturation 83 % (91-98); PCO2 54 mmHg (32.0-48.0); pH, Arterial 7.30 (7.35-7.45)
[2025-04-12] MEDS: fentaNYL 2,500 MCG/250 ML BAG 2,500 MCG/250 ML BAG IV (13:57)
[2025-04-12 14:03] LABS: PO2 53 mmHg (83-108)
[2025-04-12 14:04] LABS: Allen Test Performed/OK; Puncture Site Left Brachial
[2025-04-12 14:16] LABS: Base Excess 1 (-3-3); HCO3 26 mEq/L (20-26); O2 Saturation 97 % (91-98); PCO2 44 mmHg (32.0-48.0); PO2 196 mmHg (83-108); pH, Arterial 7.38 (7.35-7.45)
[2025-04-12 14:17] LABS: Allen Test Not Performed; Inspired Oxygen, FIO2 100 %; Puncture Site Left Brachial
[2025-04-12 14:25] LABS: Basophils # (Auto) 0.0 Thou/mm3 (0.0-0.2); Basophils % (Auto) 1 % (0-2.5); Eosinophils # (Auto) 0.1 Thou/mm3 (0.0-0.5); Eosinophils % (Auto) 1 % (0-10); Hematocrit 36.2 % (36.0-46.0); Hemoglobin 11.2 g/dL (12.0-16.0); Immature Granulocytes Auto 0.07 Thou/mm3 (0.00-0.00); Lymphocytes # (Auto) 0.5 Thou/mm3 (1.0-4.8); Lymphocytes % (Auto) 8 % (10-50); Mean Corpuscular HGB Conc 30.9 g/dl (31.0-37.0); Mean Corpuscular Hemoglobin 31.3 pg (25.0-35.0); Mean Corpuscular Volume 101 fL (80-100); Monocytes # (Auto) 0.4 Thou/mm3 (0.0-0.8); Monocytes % (Auto) 7 % (0-12); Neutrophils # (Auto) 5.2 Thou/mm3 (1.8-7.7); Neutrophils % (Auto) 83 % (37-80); Nucleated Red Blood Cell # 0.00 Thou/mm3 (0.00-0.00); Nucleated Red Blood Cell % 0 /100 WBC (0); Platelet Count 282 Thou/mm3 (140-440); RDW Standard Deviation 56.8 fL (36.4-46.3); Red Blood Count 3.58 Miln/mm3 (4.00-5.20); White Blood Count 6.3 Thou/mm3 (3.6-11.0)
[2025-04-12 14:45] LABS: Alanine Aminotransferase 13 U/L (10-49); Albumin, Serum 5.0 gm/dL (3.4-4.8); Albumin/Globulin Ratio 1.6 (1.2-2.2); Alkaline Phosphatase 111 U/L (46-116); Anion Gap 21 (7-16); Aspartate Amino Transferase 38 U/L (0-34); BUN/Creatinine Ratio 7 Ratio (12-20); Bilirubin,Total 0.5 mg/dL (0.3-1.2); Blood Urea Nitrogen 32 mg/dL (9-23); Calcium 9.9 mg/dL (8.3-10.6); Calcium (Corrected) 9.9 mg/dL (8.5-10.1); Carbon Dioxide 25.1 mMol/L (20.0-31.0); Chloride 95 mMol/L (98-107); Creatinine (Component) 4.6 mg/dL (0.6-1.3); Estimated Creatinine Clearance 10.1 mL/min (>60); Globulin 3.2 gm/dL (2.3-3.5); Glucose 148 mg/dL (74-106); Osmolality,Calculated 291 (275-295); Potassium 4.4 mMol/L (3.4-5.1); Sodium 141 mMol/L (136-145); Total Protein 8.2 gm/dL (5.7-8.2); eGFR 10 See Note
[2025-04-12] MEDS: RINGERS LACTATED 1000 ML 1,000 ML 999 ML IV (15:30)
--- NOTE | 2025-04-12 15:48 | ESPR_ITS ---
Documentation for date of: 04/12/25 Subjective Subjective Interval history: This is a 69yo F admitted to the hospital on 04/09 for SBO. She has a h/o ESRD on HD. She was on HD today when she became altered and hypoxic and a rapid response was called. An ICU eval was requested. The pt had sats reading between mid 80s and low 70s. She was not diaphoretic nor ashen and was moving all extremities. She was being bagged however no change in her sats. It was unclear if this was real. An oral airway was placed and the pt began actively tonguing the OA out of her mouth. The pulse ox was switched to her ear and sats began to read in the mid to high 90s. pts BP improved from 90s to 120s. She was still altered and the decision was made to bring her to the ICU. She will intermittenly open eyes and look around and then drift back to sleep. She moves all 4 extremities though is sluggish on her L (residual weakness from prior CVA). She currently has an NGT in place which was clamped at time of HD and rapid. There are reports of n/v earlier however none in HD. 04/11- no acute overnight events, underwent L IJ placement for venous access, had increasing LA and CT chest/abd pelvis obtained to eval for PE and ischemic bowel -> neg, afebrile, significant output from NGT >2lts/24hr 04/12- was downgraded yesterday with no acute events, today went to the OR for ex lap and returned intubated to the ICU. In OR pt was found to have large organic seed causing mechanical bowel obstruction. repeat labs obtained on arrival to ICU from OR. pt was on started on prop and fent for sedation Critical Care Note Critical care time (min.): 0 Exam Vital Signs Temp Pulse Resp BP Pulse Ox O2 Del Method O2 Flow Rate 96.0 F L 147 H 20 138/82 H 96 Mechanical Ventilation 100 04/12/25 10:43 04/12/25 15:05 04/12/25 15:05 04/12/25 15:05 04/12/25 15:05 04/12/25 15:05 04/12/25 13:24 FiO2 40 04/12/25 15:05 Narrative Exam Gen- NAD, intubated, sedated, nl body habitus HEENT- NC/AT, mucosa dry, ETT/OGT in place, PERRL small Chest- LCTAB, HRRR, tachycardic, no increase in WOB Abd- s/nt/bs diminished, surgical gauze in place over incision site Ext- no edema, pulses palp, feet cool, no mottling, no clubbing Vent AC VC drips fent Physical Exam Completion Physical Exam Complete?: Yes Objective - Regional Account Manager Labs 04/12/25 14:00 04/12/25 14:00 Labs: Laboratory Results - last 24 hr 04/10/25 04/12/25 04/12/25 05:21 04:28 04:57 WBC 9.7 RBC 3.93 L Hgb 12.6 Hct 39.4 MCV 100 MCH 32.1 MCHC 32.0 RDW Std Deviation 56.0 H Plt Count 328 D Neut % (Auto) 85 H Lymph % (Auto) 7 L [place] % (Auto) 7 Eos % (Auto) 0 Baso % (Auto) 1 Neut # (Auto) 8.3 H Lymph # (Auto) 0.7 L [place] # (Auto) 0.7 Eos # (Auto) 0.0 Baso # (Auto) 0.1 Immature Gran # (Auto) 0.04 H Absolute Nucleated RBC 0.00 Immature Gran % 0 Nucleated RBC % 0 PT INR APTT Puncture Site Left Brachial ABG pH 7.38 ABG pCO2 58 H ABG pO2 50 L* D ABG HCO3 34 H ABG O2 Saturation 80 L ABG Base Excess 7 H VBG pH 7.38 VBG pCO2 58 H VBG pO2 50 VBG O2 Sat ([place]) 80 L VBG Base Excess 7 H Oxygen Liter Flow 10 FiO2 21 Sodium 139 Potassium 5.2 H Chloride 86 L Carbon Dioxide 31.0 Anion Gap 22 H BUN 50 H Creatinine 7.0 H* D Estim Creat Clear Calc 6.7 L eGFR 6 L* BUN/Creatinine Ratio 7 L Glucose 125 H Calculated Osmolality 291 Calcium 9.9 Corrected Calcium 9.9 Phosphorus 6.2 H Magnesium 2.6 Total Bilirubin 0.4 AST 35 H ALT 13 Alkaline Phosphatase 132 H Troponin I 0.193 H* Total Protein 8.5 H Albumin 4.8 Globulin 3.7 H Albumin/Globulin Ratio 1.3 Hepatitis C Antibody Non Reactive Blood Type Antibody Screen Blood Bank Wristband ID 04/12/25 04/12/25 04/12/25 10:25 11:08 13:44 WBC 9.1 RBC 3.80 L Hgb 12.1 Hct 38.4 MCV 101 H MCH 31.8 MCHC 31.5 RDW Std Deviation 56.2 H Plt Count 283 D Neut % (Auto) 80 Lymph % (Auto) 9 L [place] % (Auto) 10 Eos % (Auto) 0 Baso % (Auto) 1 Neut # (Auto) 7.2 Lymph # (Auto) 0.8 L [place] # (Auto) 0.9 H Eos # (Auto) 0.0 Baso # (Auto) 0.1 Immature Gran # (Auto) 0.09 H Absolute Nucleated RBC 0.00 Immature Gran % 1 H Nucleated RBC % 0 PT 11.4 INR 1.0 APTT 31.6 Puncture Site Left Brachial ABG pH 7.30 L ABG pCO2 54 H ABG pO2 53 L* ABG HCO3 27 H ABG O2 Saturation 83 L ABG Base Excess 0 VBG pH VBG pCO2 VBG pO2 VBG O2 Sat ([place]) VBG Base Excess Oxygen Liter Flow FiO2 100 Sodium 140 Potassium 4.2 D Chloride 95 L Carbon Dioxide 26.6 Anion Gap 18 H BUN 23 Creatinine 3.6 H D Estim Creat Clear Calc 12.9 L eGFR 13 L* BUN/Creatinine Ratio 6 L Glucose 124 H Calculated Osmolality 284 Calcium 10.5 Corrected Calcium 10.5 H Phosphorus Magnesium Total Bilirubin 0.5 AST 39 H ALT 13 Alkaline Phosphatase 120 H Troponin I 0.194 H* Total Protein 8.5 H Albumin 5.3 H D Globulin 3.2 Albumin/Globulin Ratio 1.7 Hepatitis C Antibody Blood Type A Positive Antibody Screen NEGATIVE Blood Bank Wristband ID Yes 04/12/25 14:00 WBC 6.3 RBC 3.58 L Hgb 11.2 L Hct 36.2 MCV 101 H MCH 31.3 MCHC 30.9 L RDW Std Deviation 56.8 H Plt Count 282 Neut % (Auto) 83 H Lymph % (Auto) 8 L [place] % (Auto) 7 Eos % (Auto) 1 Baso % (Auto) 1 Neut # (Auto) 5.2 Lymph # (Auto) 0.5 L [place] # (Auto) 0.4 Eos # (Auto) 0.1 Baso # (Auto) 0.0 Immature Gran # (Auto) 0.07 H Absolute Nucleated RBC 0.00 Immature Gran % 1 H Nucleated RBC % 0 PT INR APTT Puncture Site Left Brachial ABG pH 7.38 ABG pCO2 44 D ABG pO2 196 H D ABG HCO3 26 ABG O2 Saturation 97 ABG Base Excess 1 VBG pH VBG pCO2 VBG pO2 VBG O2 Sat ([place]) VBG Base Excess Oxygen Liter Flow FiO2 100 Sodium 141 Potassium 4.4 Chloride 95 L Carbon Dioxide 25.1 Anion Gap 21 H BUN 32 H Creatinine 4.6 H* D Estim Creat Clear Calc 10.1 L eGFR 10 L* BUN/Creatinine Ratio 7 L Glucose 148 H Calculated Osmolality 291 Calcium 9.9 Corrected Calcium 9.9 Phosphorus Magnesium Total Bilirubin 0.5 AST 38 H ALT 13 Alkaline Phosphatase 111 Troponin I Total Protein 8.2 Albumin 5.0 H Globulin 3.2 Albumin/Globulin Ratio 1.6 Hepatitis C Antibody Blood Type Antibody Screen Blood Bank Wristband ID Assessment & Plan Problem List (1) Bowel obstruction: Status: Acute (2) ESRD (end stage renal disease): Status: Acute (3) CHF exacerbation: Status: Acute Additional Assessment Additional Assessment: This is a 69yo F admitted to the ICU for hypoxia 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 This time includes time during rapid response for hypoxia and hypotension. Provider Notation Provider Notation: Although this document has been carefully reviewed, there may still be some phonetic and other typographical errors. These errors are purely grammatical due to imperfections in the software program and should not be construed in any way to compromise the substance of the patient's medical care during this visit. Thank you for the opportunity and privilege in assisting you with this patient's care and management.
[2025-04-12] MEDS: PROPOFOL 1,000 MG IVPB 1,000 MG/100 ML VIAL 1.905 MG IV (15:58)
[2025-04-12] MEDS: RINGERS LACTATED 500 ML 500 ML 999 ML IV (16:52)
--- NOTE | 2025-04-12 17:09 | PD.NEPHPROG ---
Documentation for date of: 04/12/25 Subjective Subjective Interval history: 69-year-old female with a past medical history of ESRD on HD M/W/F , type 2 diabetes mellitus, hypertension, CVA with residual left-sided weakness who is admitted for small bowel obstruction. Patient endorsed nausea and vomiting last couple of days, last BM was yesterday but was small caliber, and does states she is currently passing gas. In ED, initial vital signs show BP of 181/89 and, other vital signs stable. Labs showed leukocytosis 12.5 but improved overnight, K 7.4 requiring urgent hemodialysis that patient underwent and repeat labs showed improvement. Patient went for exploratory laparotomy today and returned to ICU. Exam Vital Signs Temp Pulse Resp BP Pulse Ox O2 Del Method O2 Flow Rate 98.3 F 139 H 17 134/75 H 95 Mechanical Ventilation 100 04/12/25 16:00 04/12/25 16:00 04/12/25 16:00 04/12/25 16:00 04/12/25 16:00 04/12/25 15:05 04/12/25 13:24 FiO2 100 04/12/25 16:00 Narrative Exam General: Intubated and sedated Skin: Intact, Warm, no rashes. HEENT: Normocephalic, Atraumatic. Normal neck range of motion, Supple. Trachea midline. Respiratory: Lungs are clear to auscultation, Breath sounds are equal bilaterally with equal chest expansion. Cardiovascular: RRR, normal S1, S2, No murmurs. Distal pulses 2+ Abdomen: Distended Musculoskeletal/Extremities: No erythema, swelling, tenderness of any joints. No edema of BLE Objective Labs 04/12/25 14:00 04/12/25 14:00 Labs: Laboratory Results - last 24 hr 04/12/25 04/12/25 04/12/25 04:28 04:57 10:25 WBC 9.7 RBC 3.93 L Hgb 12.6 Hct 39.4 MCV 100 MCH 32.1 MCHC 32.0 RDW Std Deviation 56.0 H Plt Count 328 D Neut % (Auto) 85 H Lymph % (Auto) 7 L [place] % (Auto) 7 Eos % (Auto) 0 Baso % (Auto) 1 Neut # (Auto) 8.3 H Lymph # (Auto) 0.7 L [place] # (Auto) 0.7 Eos # (Auto) 0.0 Baso # (Auto) 0.1 Immature Gran # (Auto) 0.04 H Absolute Nucleated RBC 0.00 Immature Gran % 0 Nucleated RBC % 0 PT INR APTT Puncture Site Left Brachial ABG pH 7.38 ABG pCO2 58 H ABG pO2 50 L* D ABG HCO3 34 H ABG O2 Saturation 80 L ABG Base Excess 7 H VBG pH 7.38 VBG pCO2 58 H VBG pO2 50 VBG O2 Sat ([place]) 80 L VBG Base Excess 7 H Oxygen Liter Flow 10 FiO2 21 Sodium 139 Potassium 5.2 H Chloride 86 L Carbon Dioxide 31.0 Anion Gap 22 H BUN 50 H Creatinine 7.0 H* D Estim Creat Clear Calc 6.7 L eGFR 6 L* BUN/Creatinine Ratio 7 L Glucose 125 H Calculated Osmolality 291 Calcium 9.9 Corrected Calcium 9.9 Phosphorus 6.2 H Magnesium 2.6 Total Bilirubin 0.4 AST 35 H ALT 13 Alkaline Phosphatase 132 H Troponin I 0.193 H* 0.194 H* Total Protein 8.5 H Albumin 4.8 Globulin 3.7 H Albumin/Globulin Ratio 1.3 Blood Type Antibody Screen Blood Bank Wristband ID 04/12/25 04/12/25 04/12/25 11:08 13:44 14:00 WBC 9.1 6.3 RBC 3.80 L 3.58 L Hgb 12.1 11.2 L Hct 38.4 36.2 MCV 101 H 101 H MCH 31.8 31.3 MCHC 31.5 30.9 L RDW Std Deviation 56.2 H 56.8 H Plt Count 283 D 282 Neut % (Auto) 80 83 H Lymph % (Auto) 9 L 8 L [place] % (Auto) 10 7 Eos % (Auto) 0 1 Baso % (Auto) 1 1 Neut # (Auto) 7.2 5.2 Lymph # (Auto) 0.8 L 0.5 L [place] # (Auto) 0.9 H 0.4 Eos # (Auto) 0.0 0.1 Baso # (Auto) 0.1 0.0 Immature Gran # (Auto) 0.09 H 0.07 H Absolute Nucleated RBC 0.00 0.00 Immature Gran % 1 H 1 H Nucleated RBC % 0 0 PT 11.4 INR 1.0 APTT 31.6 Puncture Site Left Brachial Left Brachial ABG pH 7.30 L 7.38 ABG pCO2 54 H 44 D ABG pO2 53 L* 196 H D ABG HCO3 27 H 26 ABG O2 Saturation 83 L 97 ABG Base Excess 0 1 VBG pH VBG pCO2 VBG pO2 VBG O2 Sat ([place]) VBG Base Excess Oxygen Liter Flow FiO2 100 100 Sodium 140 141 Potassium 4.2 D 4.4 Chloride 95 L 95 L Carbon Dioxide 26.6 25.1 Anion Gap 18 H 21 H BUN 23 32 H Creatinine 3.6 H D 4.6 H* D Estim Creat Clear Calc 12.9 L 10.1 L eGFR 13 L* 10 L* BUN/Creatinine Ratio 6 L 7 L Glucose 124 H 148 H Calculated Osmolality 284 291 Calcium 10.5 9.9 Corrected Calcium 10.5 H 9.9 Phosphorus Magnesium Total Bilirubin 0.5 0.5 AST 39 H 38 H ALT 13 13 Alkaline Phosphatase 120 H 111 Troponin I Total Protein 8.5 H 8.2 Albumin 5.3 H D 5.0 H Globulin 3.2 3.2 Albumin/Globulin Ratio 1.7 1.6 Blood Type A Positive Antibody Screen NEGATIVE Blood Bank Wristband ID Yes ABG Interpretation ABG results: 04/10/25 04/12/25 04/12/25 11:00 04:57 13:44 ABG pH 7.45 7.38 7.30 L ABG pCO2 60 H 58 H 54 H ABG pO2 79 L 50 L* D 53 L* ABG HCO3 42 H 34 H 27 H ABG O2 Saturation 96 80 L 83 L ABG Base Excess 16 H 7 H 0 VBG pH 7.38 VBG pCO2 58 H VBG pO2 50 VBG Base Excess 7 H 04/12/25 14:00 ABG pH 7.38 ABG pCO2 44 D ABG pO2 196 H D ABG HCO3 26 ABG O2 Saturation 97 ABG Base Excess 1 VBG pH VBG pCO2 VBG pO2 VBG Base Excess Assessment & Plan Assessment and plan (1) Bowel obstruction: Status: Acute (2) ESRD (end stage renal disease): Status: Acute Assessment and plan: Will continue hemodialysis as needed for volume control and for clearance. Discussed with ICU resident. (3) CHF exacerbation: Status: Acute
[2025-04-12 18:58] LABS: Hematocrit 34.1 % (36.0-46.0); Hemoglobin 10.8 g/dL (12.0-16.0)
[2025-04-12] MEDS: ACETAMINOPHEN IVPB 1,000 MG/100 ML VIAL 250 MG IV (19:18)
[2025-04-12] MEDS: Norepinephrine/NS 16mg/250ml 16 MG/250 ML BAG 2.977 MG IV (20:26)
--- NOTE | 2025-04-12 20:31 | XR_ITS ---
Examination: CT abdomen and pelvis without contrast. Coronal 3-D reconstructions. Sagittal 2-D reconstructions. Date and time of exam:April 12, 2025, 2107 hrs. Indications: History small bowel obstruction, postop, abdominal pain CTDI: vol (mGy): 17 DLP: (mGycm): 887 Technique: Axial images of the abdomen have been obtained, 3 mm slice thickness Intravenous contrast material has not been administered. Low dose protocols were performed. One or more of the following dose reduction techniques were used; automated exposure control, adjustment of the mA and/or KV according to patient size, use of iterative reconstruction technique. Findings: Mild right base pneumonia with minimal right pleural disease No visualized liver or splenic lesion Contrast in the distended gallbladder Orogastric tube in the stomach No pancreatic mass Contrast distended small bowel loops Pneumoperitoneum, presumably postoperative with air in the anterior abdominal wall Small fat-containing umbilical hernia Anterior abdominal wall incision No abdominal or pelvic abscess Contracted urinary bladder Fat-containing inguinal hernia Rectal wall appears thickened Impression: Right base pneumonia Postoperative changes, postop air in the abdomen and anterior abdominal wall Contrast distended small bowel loops, consider postop small bowel ileus Recommend follow-up 3 view abdominal series as clinically warranted
[2025-04-12 20:42] LABS: Lactate (Lactic Acid) 1.5 mMol/L (0.4-2.0)
[2025-04-12 20:49] LABS: Basophils # (Auto) 0.0 Thou/mm3 (0.0-0.2); Basophils % (Auto) 1 % (0-2.5); Eosinophils # (Auto) 0.0 Thou/mm3 (0.0-0.5); Eosinophils % (Auto) 0 % (0-10); Hematocrit 33.3 % (36.0-46.0); Hemoglobin 10.4 g/dL (12.0-16.0); Immature Granulocytes Auto 0.10 Thou/mm3 (0.00-0.00); Lymphocytes # (Auto) 0.9 Thou/mm3 (1.0-4.8); Lymphocytes % (Auto) 10 % (10-50); Mean Corpuscular HGB Conc 31.2 g/dl (31.0-37.0); Mean Corpuscular Hemoglobin 31.5 pg (25.0-35.0); Mean Corpuscular Volume 101 fL (80-100); Monocytes # (Auto) 0.7 Thou/mm3 (0.0-0.8); Monocytes % (Auto) 8 % (0-12); Neutrophils # (Auto) 6.9 Thou/mm3 (1.8-7.7); Neutrophils % (Auto) 80 % (37-80); Nucleated Red Blood Cell # 0.02 Thou/mm3 (0.00-0.00); Nucleated Red Blood Cell % 0 /100 WBC (0); Platelet Count 220 Thou/mm3 (140-440); RDW Standard Deviation 56.5 fL (36.4-46.3); Red Blood Count 3.30 Miln/mm3 (4.00-5.20); White Blood Count 8.6 Thou/mm3 (3.6-11.0)
[2025-04-12] MEDS: FLUCONAZOLE/NS 400 MG IVPB 400 MG/200 ML BAG 100 MG IV (21:25)
[2025-04-12] MEDS: PIPER/TAZO 3.375 GM PREMIX 3.375 GM/50 ML BAG IV (21:30)
[2025-04-13] VITALS (61 sets, daily range): BP systolic 78–160; BP diastolic 36–87; PULSE 94–114; RESP 12–25; TEMP 36.3–38.3; O2SAT 78–100; BMI 26.6
[2025-04-13] MEDS: ACETAMINOPHEN IVPB 1,000 MG/100 ML VIAL 250 MG IV ×2 (01:27→10:38)
[2025-04-13 02:25] LABS: Hematocrit 32.0 % (36.0-46.0); Hemoglobin 10.0 g/dL (12.0-16.0)
[2025-04-13 04:23] LABS: Allen Test Not Performed; Base Excess 4 (-3-3); HCO3 29 mEq/L (20-26); Inspired Oxygen, FIO2 35 %; O2 Saturation 95 % (91-98); PCO2 45 mmHg (32.0-48.0); PO2 72 mmHg (83-108); Puncture Site Left Brachial; pH, Arterial 7.41 (7.35-7.45)
--- NOTE | 2025-04-13 05:00 | XR_ITS ---
Examination: AP chest single view Technique one AP portable semiupright chest single view Date and time: April 13, 2025, 0506 hrs., Comparison 04/12/2025 Indications: Hypoxic respiratory failure postintubation Findings: Mild heart failure. Mild enlargement cardiac contour with prominent vascular congestion and early edema at the lung bases Endotracheal tube tip 28 mm above owen. The orogastric tube is in the stomach, the tip is below the level film Prominent osteopenia Impression: Mild heart failure Endotracheal tube tip 20 mm above owen Orogastric tube in the stomach, the tip is below the level of the film
[2025-04-13 05:28] LABS: Basophils # (Auto) 0.1 Thou/mm3 (0.0-0.2); Basophils % (Auto) 1 % (0-2.5); Eosinophils # (Auto) 0.1 Thou/mm3 (0.0-0.5); Eosinophils % (Auto) 1 % (0-10); Hematocrit 32.9 % (36.0-46.0); Hemoglobin 10.1 g/dL (12.0-16.0); Immature Granulocytes Auto 0.10 Thou/mm3 (0.00-0.00); Lymphocytes # (Auto) 1.3 Thou/mm3 (1.0-4.8); Lymphocytes % (Auto) 14 % (10-50); Mean Corpuscular HGB Conc 30.7 g/dl (31.0-37.0); Mean Corpuscular Hemoglobin 31.5 pg (25.0-35.0); Mean Corpuscular Volume 103 fL (80-100); Monocytes # (Auto) 0.9 Thou/mm3 (0.0-0.8); Monocytes % (Auto) 10 % (0-12); Neutrophils # (Auto) 6.5 Thou/mm3 (1.8-7.7); Neutrophils % (Auto) 74 % (37-80); Nucleated Red Blood Cell # 0.00 Thou/mm3 (0.00-0.00); Nucleated Red Blood Cell % 0 /100 WBC (0); Platelet Count 251 Thou/mm3 (140-440); RDW Standard Deviation 56.9 fL (36.4-46.3); Red Blood Count 3.21 Miln/mm3 (4.00-5.20); White Blood Count 8.8 Thou/mm3 (3.6-11.0)
[2025-04-13 06:14] LABS: Alanine Aminotransferase 11 U/L (10-49); Albumin, Serum 4.2 gm/dL (3.4-4.8); Albumin/Globulin Ratio 1.5 (1.2-2.2); Alkaline Phosphatase 93 U/L (46-116); Anion Gap 15 (7-16); Aspartate Amino Transferase 33 U/L (0-34); BUN/Creatinine Ratio 7 Ratio (12-20); Bilirubin,Total 0.5 mg/dL (0.3-1.2); Blood Urea Nitrogen 40 mg/dL (9-23); Calcium 9.7 mg/dL (8.3-10.6); Calcium (Corrected) 9.7 mg/dL (8.5-10.1); Carbon Dioxide 26.6 mMol/L (20.0-31.0); Chloride 98 mMol/L (98-107); Creatinine (Component) 5.6 mg/dL (0.6-1.3); Estimated Creatinine Clearance 8.3 mL/min (>60); Globulin 2.8 gm/dL (2.3-3.5); Glucose 99 mg/dL (74-106); Magnesium 2.0 mg/dL (1.6-2.6); Osmolality,Calculated 289 (275-295); Phosphorous 3.7 mg/dL (2.4-5.1); Potassium 4.6 mMol/L (3.4-5.1); Sodium 140 mMol/L (136-145); Total Protein 7.0 gm/dL (5.7-8.2); eGFR 8 See Note
[2025-04-13] MEDS: PIPERACILLIN/TAZO 2.25GM INJ 2.25 GM in SODIUM CHLORIDE 0.9% (Popper) 50 ML IV ×3 (06:21→21:22)
--- NOTE | 2025-04-13 09:56 | PD.RESPRO ---
Documentation for date of: 04/13/25 Subjective Subjective Interval history: Nani Triplett is a 69-year-old female with past medical history of ESRD on HD M/W/F, insulin-dependent diabetes mellitus, hypertension, CVA with residual left-sided weakness, and left shoulder surgery who presented to [facility] emergency department in the public health assistant of 04/09/25 with a chief complaint of nausea, vomiting, and abdominal pain and was eventually admitted for SBO confirmed on 04/09 SBS. Patient was initially upgraded to the ICU on 04/10 after a hypoxic episode thought 2/2 large volume losses via NG tube and HD (chest CTA ruled out PE) occurred during HD session with accompanying lactic acidosis and hypoxemia. She was clinically stabilized in the ICU and downgraded to floors on 04/11 before undergoing exploratory laparotomy by General Surgery on 04/12 due to repeat confirmation of SBO with 04/11 repeat SBS. Per General Surgery Operative Report, patient underwent exploratory laparotomy and it was found that patient had 2 large pieces of what appeared to be fruit (possibly marlene seeds) causing complete bowel obstruction at the proximal ileum. Enterotomy was performed to remove the 2 foreign objects and the small bowel was decompressed; in total, blood loss after the surgery was estimated to be 10 mL. Patient was ultimately readmitted to the ICU on 04/12 due to ongoing need for intubation s/p exploratory laparotomy with enterotomy performed to treat SBO. Interval History 04/13/25: Overnight, patient had net positive fluid balance of 1300cc. She was noticed to have tachycardia and fever with no response to IVF, later overnight her BP dropped, MAP below 60, she was started on Levophed which was discontinued in the morning. Patient was examined at bedside; her sedation was discontinued public health assistant for SBT today, however she is very lethargic and was not initiating spontaneous breathing on PS 10/5 therefore was switched back on VC. Her hemoglobin remained stable. Her abdomen is mildly tender at the incision site, which appears clean with no discharge. Per nephrology, patient will have HD tomorrow. Morning labs did not show any leukocytosis. Will continue on cefepime and discontinue fluconazole. Will attempt SBT later today once her mentation is better. Exam Vital Signs Temp Pulse Resp BP Pulse Ox O2 Del Method O2 Flow Rate 100.4 F 108 H 16 121/72 95 Mechanical Ventilation 100 04/13/25 08:00 04/13/25 08:30 04/12/25 22:45 04/13/25 08:30 04/13/25 08:30 04/12/25 15:05 04/12/25 13:24 FiO2 40 04/13/25 08:00 Narrative Exam General: elderly female not in distress. Skin: Warm, dry, intact, no obvious rash. Head: Normocephalic, atraumatic. Eyes: PERRL. Anicteric. Ears: No ear discharge. Nose: Nasogastric tube draining dark brown fluid. Mouth/Throat: Oral mucosa dry. No obvious lesions in oropharynx. Cardiovascular: Tachycardic rate and rhythm, no murmur, no JVD or carotid bruits. +S1/S2. Respiratory: Intubated on volume control ventilatory support. Bilateral lungs clear to auscultation. Gastrointestinal: Soft, non-distended. No palpable masses. 5 cm surgical incision right from umbilicus, appears clean and no discharge. Mildly tender to palpation around incision site. Extremities: AV fistula at right upper extremity noted. No edema, no cyanosis, no clubbing. 2+ radial pulse bilaterally, 2+ posterior tibial pulse bilaterally. Pes cavus. Objective Labs 04/13/25 04:33 04/13/25 04:33 Labs: Laboratory Results - last 24 hr 04/12/25 04/12/25 04/12/25 10:25 11:08 13:44 WBC 9.1 RBC 3.80 L Hgb 12.1 Hct 38.4 MCV 101 H MCH 31.8 MCHC 31.5 RDW Std Deviation 56.2 H Plt Count 283 D Neut % (Auto) 80 Lymph % (Auto) 9 L [place] % (Auto) 10 Eos % (Auto) 0 Baso % (Auto) 1 Neut # (Auto) 7.2 Lymph # (Auto) 0.8 L [place] # (Auto) 0.9 H Eos # (Auto) 0.0 Baso # (Auto) 0.1 Immature Gran # (Auto) 0.09 H Absolute Nucleated RBC 0.00 Immature Gran % 1 H Nucleated RBC % 0 PT 11.4 INR 1.0 APTT 31.6 Puncture Site Left Brachial ABG pH 7.30 L ABG pCO2 54 H ABG pO2 53 L* ABG HCO3 27 H ABG O2 Saturation 83 L ABG Base Excess 0 FiO2 100 Sodium 140 Potassium 4.2 D Chloride 95 L Carbon Dioxide 26.6 Anion Gap 18 H BUN 23 Creatinine 3.6 H D Estim Creat Clear Calc 12.9 L eGFR 13 L* BUN/Creatinine Ratio 6 L Glucose 124 H Calculated Osmolality 284 Lactic Acid Calcium 10.5 Corrected Calcium 10.5 H Phosphorus Magnesium Total Bilirubin 0.5 AST 39 H ALT 13 Alkaline Phosphatase 120 H Troponin I 0.194 H* Total Protein 8.5 H Albumin 5.3 H D Globulin 3.2 Albumin/Globulin Ratio 1.7 Blood Type A Positive Antibody Screen NEGATIVE Crossmatch See Detail Blood Bank Wristband ID Yes 04/12/25 04/12/25 04/12/25 14:00 18:44 20:30 WBC 6.3 8.6 RBC 3.58 L 3.30 L Hgb 11.2 L 10.8 L 10.4 L Hct 36.2 34.1 L 33.3 L MCV 101 H 101 H MCH 31.3 31.5 MCHC 30.9 L 31.2 RDW Std Deviation 56.8 H 56.5 H Plt Count 282 220 D Neut % (Auto) 83 H 80 Lymph % (Auto) 8 L 10 [place] % (Auto) 7 8 Eos % (Auto) 1 0 Baso % (Auto) 1 1 Neut # (Auto) 5.2 6.9 Lymph # (Auto) 0.5 L 0.9 L [place] # (Auto) 0.4 0.7 Eos # (Auto) 0.1 0.0 Baso # (Auto) 0.0 0.0 Immature Gran # (Auto) 0.07 H 0.10 H Absolute Nucleated RBC 0.00 0.02 H Immature Gran % 1 H 1 H Nucleated RBC % 0 0 PT INR APTT Puncture Site Left Brachial ABG pH 7.38 ABG pCO2 44 D ABG pO2 196 H D ABG HCO3 26 ABG O2 Saturation 97 ABG Base Excess 1 FiO2 100 Sodium 141 Potassium 4.4 Chloride 95 L Carbon Dioxide 25.1 Anion Gap 21 H BUN 32 H Creatinine 4.6 H* D Estim Creat Clear Calc 10.1 L eGFR 10 L* BUN/Creatinine Ratio 7 L Glucose 148 H Calculated Osmolality 291 Lactic Acid 1.5 Calcium 9.9 Corrected Calcium 9.9 Phosphorus Magnesium Total Bilirubin 0.5 AST 38 H ALT 13 Alkaline Phosphatase 111 Troponin I Total Protein 8.2 Albumin 5.0 H Globulin 3.2 Albumin/Globulin Ratio 1.6 Blood Type Antibody Screen Crossmatch Blood Bank Wristband ID 04/13/25 04/13/25 04/13/25 02:08 04:10 04:33 WBC 8.8 RBC 3.21 L Hgb 10.0 L 10.1 L Hct 32.0 L 32.9 L MCV 103 H MCH 31.5 MCHC 30.7 L RDW Std Deviation 56.9 H Plt Count 251 D Neut % (Auto) 74 Lymph % (Auto) 14 [place] % (Auto) 10 Eos % (Auto) 1 Baso % (Auto) 1 Neut # (Auto) 6.5 Lymph # (Auto) 1.3 [place] # (Auto) 0.9 H Eos # (Auto) 0.1 Baso # (Auto) 0.1 Immature Gran # (Auto) 0.10 H Absolute Nucleated RBC 0.00 Immature Gran % 1 H Nucleated RBC % 0 PT INR APTT Puncture Site Left Brachial ABG pH 7.41 ABG pCO2 45 ABG pO2 72 L D ABG HCO3 29 H ABG O2 Saturation 95 ABG Base Excess 4 H FiO2 35 Sodium 140 Potassium 4.6 Chloride 98 Carbon Dioxide 26.6 Anion Gap 15 BUN 40 H Creatinine 5.6 H* D Estim Creat Clear Calc 8.3 L eGFR 8 L* BUN/Creatinine Ratio 7 L Glucose 99 Calculated Osmolality 289 Lactic Acid Calcium 9.7 Corrected Calcium 9.7 Phosphorus 3.7 Magnesium 2.0 Total Bilirubin 0.5 AST 33 ALT 11 Alkaline Phosphatase 93 Troponin I Total Protein 7.0 Albumin 4.2 D Globulin 2.8 Albumin/Globulin Ratio 1.5 Blood Type Antibody Screen Crossmatch Blood Bank Wristband ID ABG Interpretation ABG results: 04/10/25 04/12/25 04/12/25 11:00 04:57 13:44 ABG pH 7.45 7.38 7.30 L ABG pCO2 60 H 58 H 54 H ABG pO2 79 L 50 L* D 53 L* ABG HCO3 42 H 34 H 27 H ABG O2 Saturation 96 80 L 83 L ABG Base Excess 16 H 7 H 0 VBG pH 7.38 VBG pCO2 58 H VBG pO2 50 VBG Base Excess 7 H 04/12/25 04/13/25 14:00 04:10 ABG pH 7.38 7.41 ABG pCO2 44 D 45 ABG pO2 196 H D 72 L D ABG HCO3 26 29 H ABG O2 Saturation 97 95 ABG Base Excess 1 4 H VBG pH VBG pCO2 VBG pO2 VBG Base Excess Quality Measures Quality Measures VTE prophylaxis Advance care planning discussed with:: sibling Assessment & Plan Assessment Current Active Medications: Generic Name Dose Route Start Last Admin Trade Name Freq PRN Reason Stop Dose Admin Dextrose 50 ml 04/09/25 02:33 Dextrose 50%-Water Inj 50 Ml Syringe IV 05/09/25 02:32 Q15MIN PRN BG <50 OR BG <70 & pt unresponsive Glucagon 1 mg 04/09/25 02:33 Glucagon Inj 1 Mg Vial IM Q15MIN PRN BG <70, and no IV access Albumin Human 25 gm in 100 mls @ 100 mls/min 04/12/25 09:28 Albuminar-25 Ivpb IV QDAY PRN dialysis Fentanyl Citrate 2,500 mcg in 250 mls @ 2.5 mls/hr 04/12/25 13:55 04/13/25 08:00 Sublimaze Inj 2,500 Mcg/250 Ml Bag IV 04/17/25 13:40 0 mcg/hr .Q24H PRN 0 mls/hr PER PROTOCOL Titration Protocol 25 MCG/HR Propofol 1,000 mg in 100 mls @ 1.905 mls/hr 04/12/25 15:54 04/13/25 08:00 Diprivan Ivpb IV 05/12/25 15:53 0 mcg/kg/min .Q24H PRN 0 mls/hr PER PROTOCOL Titration Protocol 5 MCG/KG/MIN Acetaminophen 1,000 mg in 100 mls @ 250 mls/hr 04/12/25 19:09 04/13/25 01:27 Ofirmev Inj IV 04/13/25 12:23 250 mls/hr Q6HR PRN Administration Fever > 100.4 Norepinephrine Bitartrate 16 mg in 250 mls @ 2.977 mls/hr 04/12/25 20:21 04/13/25 06:30 Levophed In Ns 16mg/250ml IV 05/12/25 20:20 0.03 mcg/kg/min .Q24H PRN 1.786 mls/hr PER protocol Titration Protocol 0.05 MCG/KG/MIN Piperacillin Sod/Tazobactam 50 mls @ 100 mls/hr 04/13/25 06:00 04/13/25 06:21 Sod 2.25 gm/ Sodium Chloride IV 04/20/25 05:59 100 mls/hr Q8HR NADEEM Administration Protocol Insulin Human Lispro 0 unit 04/09/25 18:00 04/13/25 06:26 Insulin Lispro (Admelog) 1 Unit/0.01 Ml Unit SC 05/09/25 17:59 Not Given Q6HR NADEEM Protocol Lidocaine 1 patch 04/09/25 18:50 Lidocaine 5% 1 Patch TOP 05/09/25 18:49 UD PRN PAIN Protocol Metoclopramide HCl 10 mg 04/12/25 19:28 Metoclopramide Inj 5 Mg/Ml Vial 2 Ml IVP 05/10/25 08:59 Q6HR PRN STOMACH DISCOMFORT Protocol Midodrine 10 mg 04/12/25 08:37 Midodrine 5 Mg Tablet PO 05/12/25 08:44 TID PRN SBP <95 Ondansetron HCl 4 mg 04/09/25 11:34 04/09/25 21:51 Ondansetron Inj 2 Mg/Ml Inj 2 Ml IVP 05/09/25 11:33 4 mg Q6H PRN Administration NAUSEA OR VOMITING Protocol Sodium Chloride 3 ml 04/09/25 02:37 Sodium Chloride Rt Ree 0.9% 3 Ml Nebu INH 05/09/25 02:36 PRN PRN SOLN Plan Nani Didi Triplett is a 69-year-old female with past medical history of ESRD on HD M/W/F, insulin-dependent diabetes mellitus, hypertension, CVA with residual left-sided weakness, and left shoulder surgery who presented to [facility] emergency department in the public health assistant of 04/09/25 with a chief complaint of nausea, vomiting, and abdominal pain and was eventually admitted for SBO confirmed on 04/09 SBS. Per General Surgery Operative Report, patient underwent exploratory laparotomy and it was found that patient had 2 large pieces of what appeared to be fruit (possibly marlene seeds) causing complete bowel obstruction at the proximal ileum. Enterotomy was performed to remove the 2 foreign objects and the small bowel was decompressed; in total, blood loss after the surgery was estimated to be 10 mL. Patient was ultimately readmitted to the ICU on 04/12 due to ongoing need for intubation s/p exploratory laparotomy with enterotomy performed to treat SBO. NEURO #Chemical sedation. Rx: -discontinued in anticipation of possible extubation. CARDIO #Sinus tachycardia. #?Shock, likely septic, resolved. -Patient was noticed to have tachycardia and fever of 102F with no response to IVF, later overnight her BP dropped, MAP below 60, she was started on Levophed. Also was started on Zosyn and Fluconazole IV due to potential intrabdominal infection. Repeat H&H showed stable Hgb, no obvious signs of bleeding, NICOM report showed she is not fluid responsive. Plan: - discontinue Levophed. - blood culture ordered, discontinued Fluconazole, continue Zosyn IV. PULM #Intubated and mechanically ventilated. Dx: -04/13 ABG showed pH 7.41, pCO2 45, pO2 72. Rx: - Evaluate appropriateness for extubation by SBT today once patient's mentation is improved. - Chest physiotherapy once extubated. GI #High-grade SBO, s/p exploratory laparotomy POD 1. Per General Surgery Operative Report, patient underwent exploratory laparotomy and it was found that patient had 2 large pieces of what appeared to be fruit (possibly marlene seeds) causing complete bowel obstruction at the proximal ileum. Enterotomy was performed to remove the 2 foreign objects and the small bowel was decompressed; in total, blood loss after the surgery was estimated to be 10 mL. Rx: - Continue Zosyn IV. - Monitor wound healing progress. - blood culture ordered. - continue GI suctioning. - will follow up with GS regarding further plan. #Transaminitis, resolved. NEPHRO #ESRD on HD, (M/W/F, follows Dr. Gunderson). Dx: -04/09 CTAP showed atrophic kidneys with significant renal scarring, perinephric stranding, and a lower pole 26 mm left renal cyst. Rx: -Continue HD per Nephrology. URO #No active problems. HEME #Mild anemia. likely post-op, Hgb 10.1. Plan: - monitor for bleeding, f/u daily CBC. ENDO #Insulin-dependent diabetes mellitus, in setting of ESRD Last recorded hemoglobin A1c within diabetic range was in June 2020, with all later hemoglobin A1c readings not meeting criteria for diabetes or pre-diabetes. However, patient has ESRD which can lead to falsely reduced A1c from shortened lifespan of hemoglobin 2/2 uremia and inflammation. Dx: -04/10/25 hemoglobin A1c = 4.9 -06/26/20 hemoglobin A1c = 6.3 Rx: -Insulin sliding scale q6HR. -Blood glucose checks q6HR. ID #Possible intrabdominal infection. - patient had tachycardia and fever overnight, she also developed hypotension requiring vasopressor. She was started on Zosyn and Fluconazole IV. Plan: - blood culture ordered. - discontinued Fluconazole, continue Zosyn IV. MSK #No active problems. SKIN #No active problems. Disposition: Patient continues to meet criteria for ongoing ICU admission due to intubated status. DVT prophylaxis: SCDs (s/p 04/12 exploratory laparotomy for SBO). GI prophylaxis: None. Diet: NPO. Sahu: None. Lines: Peripheral IV. Antibiotics: IV Zosyn. CODE STATUS: FULL CODE. Patient plan of care was discussed with the attending boiling off winder, Dr. Reeves. Sal Jeffers MD, PGY 3. Disclaimer: This note was dictated by speech recognition. Minor errors in advertising operations coordinator may be present due to voice recognition software.
--- NOTE | 2025-04-13 10:08 | PC.SS ---
SS update: sedation off, is currently intubated.
--- NOTE | 2025-04-13 12:48 | PD.INTPROG ---
Documentation for date of: 04/13/25 Subjective Subjective Interval history: This is a 69yo F admitted to the hospital on 04/09 for SBO. She has a h/o ESRD on HD. She was on HD today when she became altered and hypoxic and a rapid response was called. An ICU eval was requested. The pt had sats reading between mid 80s and low 70s. She was not diaphoretic nor ashen and was moving all extremities. She was being bagged however no change in her sats. It was unclear if this was real. An oral airway was placed and the pt began actively tonguing the OA out of her mouth. The pulse ox was switched to her ear and sats began to read in the mid to high 90s. pts BP improved from 90s to 120s. She was still altered and the decision was made to bring her to the ICU. She will intermittenly open eyes and look around and then drift back to sleep. She moves all 4 extremities though is sluggish on her L (residual weakness from prior CVA). She currently has an NGT in place which was clamped at time of HD and rapid. There are reports of n/v earlier however none in HD. 04/11- no acute overnight events, underwent L IJ placement for venous access, had increasing LA and CT chest/abd pelvis obtained to eval for PE and ischemic bowel -> neg, afebrile, significant output from NGT >2lts/24hr 04/12- was downgraded yesterday with no acute events, today went to the OR for ex lap and returned intubated to the ICU. In OR pt was found to have large organic seed causing mechanical bowel obstruction. repeat labs obtained on arrival to ICU from OR. pt was on started on prop and fent for sedation 04/13- overnight was hypotensive and not fluid responsive therefore started on levophed. Given new development her abx coverage was broadened. This AM she was able to be weened off of levo and all sedation was stopped. She is able to wake up though can be sleepy. Started on SBT and doing well. afebrile and ESRD anuric Critical Care Note Critical care time (min.): 0 Exam Vital Signs Temp Pulse Resp BP Pulse Ox O2 Del Method O2 Flow Rate 100.4 F 105 H 23 H 122/68 94 L Mechanical Ventilation 100 04/13/25 08:00 04/13/25 12:00 04/13/25 12:00 04/13/25 12:00 04/13/25 12:00 04/12/25 15:05 04/12/25 13:24 FiO2 35 04/13/25 09:56 Narrative Exam Gen- NAD, awake and follows commands, nl body habitus HEENT- NC/AT, mucosa dry, sclera anicteric, ETT/NGT in place with green biliary content Chest- LCTAB, HRRR, no increase in WOB Abd- s/nt/bs diminished, surgical dressing in place Ext- no edema, pulses palp, no clubbing, no mottling, palp thrill in R arm AV fistula Vent PSV Physical Exam Completion Physical Exam Complete?: Yes Objective - Professor Of Sport Management Labs 04/13/25 04:33 04/13/25 04:33 Labs: Laboratory Results - last 24 hr 04/12/25 04/12/25 04/12/25 11:08 13:44 14:00 WBC 6.3 RBC 3.58 L Hgb 11.2 L Hct 36.2 MCV 101 H MCH 31.3 MCHC 30.9 L RDW Std Deviation 56.8 H Plt Count 282 Neut % (Auto) 83 H Lymph % (Auto) 8 L [place] % (Auto) 7 Eos % (Auto) 1 Baso % (Auto) 1 Neut # (Auto) 5.2 Lymph # (Auto) 0.5 L [place] # (Auto) 0.4 Eos # (Auto) 0.1 Baso # (Auto) 0.0 Immature Gran # (Auto) 0.07 H Absolute Nucleated RBC 0.00 Immature Gran % 1 H Nucleated RBC % 0 Puncture Site Left Brachial Left Brachial ABG pH 7.30 L 7.38 ABG pCO2 54 H 44 D ABG pO2 53 L* 196 H D ABG HCO3 27 H 26 ABG O2 Saturation 83 L 97 ABG Base Excess 0 1 FiO2 100 100 Sodium 141 Potassium 4.4 Chloride 95 L Carbon Dioxide 25.1 Anion Gap 21 H BUN 32 H Creatinine 4.6 H* D Estim Creat Clear Calc 10.1 L eGFR 10 L* BUN/Creatinine Ratio 7 L Glucose 148 H Calculated Osmolality 291 Lactic Acid Calcium 9.9 Corrected Calcium 9.9 Phosphorus Magnesium Total Bilirubin 0.5 AST 38 H ALT 13 Alkaline Phosphatase 111 Total Protein 8.2 Albumin 5.0 H Globulin 3.2 Albumin/Globulin Ratio 1.6 Blood Type A Positive Antibody Screen NEGATIVE Crossmatch See Detail Blood Bank Wristband ID Yes 04/12/25 04/12/25 04/13/25 18:44 20:30 02:08 WBC 8.6 RBC 3.30 L Hgb 10.8 L 10.4 L 10.0 L Hct 34.1 L 33.3 L 32.0 L MCV 101 H MCH 31.5 MCHC 31.2 RDW Std Deviation 56.5 H Plt Count 220 D Neut % (Auto) 80 Lymph % (Auto) 10 [place] % (Auto) 8 Eos % (Auto) 0 Baso % (Auto) 1 Neut # (Auto) 6.9 Lymph # (Auto) 0.9 L [place] # (Auto) 0.7 Eos # (Auto) 0.0 Baso # (Auto) 0.0 Immature Gran # (Auto) 0.10 H Absolute Nucleated RBC 0.02 H Immature Gran % 1 H Nucleated RBC % 0 Puncture Site ABG pH ABG pCO2 ABG pO2 ABG HCO3 ABG O2 Saturation ABG Base Excess FiO2 Sodium Potassium Chloride Carbon Dioxide Anion Gap BUN Creatinine Estim Creat Clear Calc eGFR BUN/Creatinine Ratio Glucose Calculated Osmolality Lactic Acid 1.5 Calcium Corrected Calcium Phosphorus Magnesium Total Bilirubin AST ALT Alkaline Phosphatase Total Protein Albumin Globulin Albumin/Globulin Ratio Blood Type Antibody Screen Crossmatch Blood Bank Wristband ID 04/13/25 04/13/25 04:10 04:33 WBC 8.8 RBC 3.21 L Hgb 10.1 L Hct 32.9 L MCV 103 H MCH 31.5 MCHC 30.7 L RDW Std Deviation 56.9 H Plt Count 251 D Neut % (Auto) 74 Lymph % (Auto) 14 [place] % (Auto) 10 Eos % (Auto) 1 Baso % (Auto) 1 Neut # (Auto) 6.5 Lymph # (Auto) 1.3 [place] # (Auto) 0.9 H Eos # (Auto) 0.1 Baso # (Auto) 0.1 Immature Gran # (Auto) 0.10 H Absolute Nucleated RBC 0.00 Immature Gran % 1 H Nucleated RBC % 0 Puncture Site Left Brachial ABG pH 7.41 ABG pCO2 45 ABG pO2 72 L D ABG HCO3 29 H ABG O2 Saturation 95 ABG Base Excess 4 H FiO2 35 Sodium 140 Potassium 4.6 Chloride 98 Carbon Dioxide 26.6 Anion Gap 15 BUN 40 H Creatinine 5.6 H* D Estim Creat Clear Calc 8.3 L eGFR 8 L* BUN/Creatinine Ratio 7 L Glucose 99 Calculated Osmolality 289 Lactic Acid Calcium 9.7 Corrected Calcium 9.7 Phosphorus 3.7 Magnesium 2.0 Total Bilirubin 0.5 AST 33 ALT 11 Alkaline Phosphatase 93 Total Protein 7.0 Albumin 4.2 D Globulin 2.8 Albumin/Globulin Ratio 1.5 Blood Type Antibody Screen Crossmatch Blood Bank Wristband ID Assessment & Plan Problem List (1) Bowel obstruction: Status: Acute (2) ESRD (end stage renal disease): Status: Acute (3) CHF exacerbation: Status: Acute Additional Assessment Additional Assessment: This is a 69yo F admitted to the ICU for 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 CV Hypotension- resolved - overnight briefly on levophed and off this AM - may have been due to some vasodilation from fent/prop Resp Intubated and on PSV doing well obtain weening parameters and extubate Renal ESRD on HD LA- resolved GI SBO- s/p exlap - large organic object found causing mechanical obstruction - tolerated procedure well - NPO for now-> once extubated can clamp and tmw clear liq diet - fu with surgery Endo DM- SSI Heme DVT proph- heparin 5000 q8 Anemia- no active bleeding noted ID stable case d/w ICU team and surgery labs, imaging, records reviewed ~38min required for eval, exam, review, intervention, discussion and formulation of POC for this pt. This time includes time during rapid response for hypoxia and hypotension. Provider Notation Provider Notation: Although this document has been carefully reviewed, there may still be some phonetic and other typographical errors. These errors are purely grammatical due to imperfections in the software program and should not be construed in any way to compromise the substance of the patient's medical care during this visit. Thank you for the opportunity and privilege in assisting you with this patient's care and management.
--- NOTE | 2025-04-13 14:36 | PD.SURPROG ---
Documentation for date of: 04/13/25 Subjective Subjective Narrative: Patient seen and examined in ICU. Still intubated and sedated Exam Vital Signs Temp Pulse Resp BP Pulse Ox O2 Del Method O2 Flow Rate 100.4 F 98 20 122/68 97 Mechanical Ventilation 3 04/13/25 08:00 04/13/25 14:24 04/13/25 14:24 04/13/25 12:00 04/13/25 14:24 04/12/25 15:05 04/13/25 14:24 FiO2 35 04/13/25 09:56 Constitutional Constitutional: no acute distress Routine Abdominal Exam Comments: Abdomen is soft and minimally distended. Incision with dressings clean, dry and intact Assessment & Plan Assessment Additional comments: Postop day #1 status post exploratory laparotomy with small bowel decompression Plan May clamp the NG tube. May start the patient on clear liquids tomorrow if extubated PROCEDURES: Procedures Exploratory laparotomy, enterotomy with removal of 2 foreign objects causing complete bowel obstruction Small bowel decompression
--- NOTE | 2025-04-13 17:06 | ESPR_ITS ---
Documentation for date of: 04/13/25 Subjective Subjective Interval history: 69-year-old female with a past medical history of ESRD on HD M/W/F , type 2 diabetes mellitus, hypertension, CVA with residual left-sided weakness who is admitted for small bowel obstruction. Patient endorsed nausea and vomiting last couple of days, last BM was yesterday but was small caliber, and does states she is currently passing gas. In ED, initial vital signs show BP of 181/89 and, other vital signs stable. Labs showed leukocytosis 12.5 but improved overnight, K 7.4 requiring urgent hemodialysis that patient underwent and repeat labs showed improvement. Patient is extubated today. Patient is a lethargic Exam Vital Signs Temp Pulse Resp BP Pulse Ox O2 Del Method O2 Flow Rate 100.4 F 105 H 19 127/62 97 Mechanical Ventilation 3 04/13/25 08:00 04/13/25 15:00 04/13/25 15:00 04/13/25 15:00 04/13/25 15:00 04/12/25 15:05 04/13/25 14:24 FiO2 35 04/13/25 09:56 Narrative Exam GEN. APPEARANCE: Patient is lethargic HEENT: Patient is normocephalic, atraumatic, EOMI, PERRLA. Throat is without erythema or exudate. Moist oral mucosa. NECK: Neck is supple, no JVD or bruits. CARDIOVASCULAR: Heart is regular in rhythm. S1 and S2 normal. LUNGS\CHEST: Bilateral basal crackles ABDOMEN: Abdomen is soft, nontender, with normal bowel sounds. No pulsatile masses. No rebound, rigidity, or guarding. Normal inspection and palpation. EXTREMITIES: Normal inspection and palpation. No edema, clubbing, or cyanosis. SKIN: Skin is warm and dry without rashes. Normal inspection. MUSCULOSKELETAL: No calf tenderness, no joint swellings. NEURO: Lethargic Objective Labs 04/13/25 04:33 04/13/25 04:33 Labs: Laboratory Results - last 24 hr 04/12/25 04/12/25 04/12/25 11:08 18:44 20:30 WBC 8.6 RBC 3.30 L Hgb 10.8 L 10.4 L Hct 34.1 L 33.3 L MCV 101 H MCH 31.5 MCHC 31.2 RDW Std Deviation 56.5 H Plt Count 220 D Neut % (Auto) 80 Lymph % (Auto) 10 [place] % (Auto) 8 Eos % (Auto) 0 Baso % (Auto) 1 Neut # (Auto) 6.9 Lymph # (Auto) 0.9 L [place] # (Auto) 0.7 Eos # (Auto) 0.0 Baso # (Auto) 0.0 Immature Gran # (Auto) 0.10 H Absolute Nucleated RBC 0.02 H Immature Gran % 1 H Nucleated RBC % 0 Puncture Site ABG pH ABG pCO2 ABG pO2 ABG HCO3 ABG O2 Saturation ABG Base Excess FiO2 Sodium Potassium Chloride Carbon Dioxide Anion Gap BUN Creatinine Estim Creat Clear Calc eGFR BUN/Creatinine Ratio Glucose Calculated Osmolality Lactic Acid 1.5 Calcium Corrected Calcium Phosphorus Magnesium Total Bilirubin AST ALT Alkaline Phosphatase Total Protein Albumin Globulin Albumin/Globulin Ratio Blood Type A Positive Antibody Screen NEGATIVE Crossmatch See Detail Blood Bank Wristband ID Yes 04/13/25 04/13/25 04/13/25 02:08 04:10 04:33 WBC 8.8 RBC 3.21 L Hgb 10.0 L 10.1 L Hct 32.0 L 32.9 L MCV 103 H MCH 31.5 MCHC 30.7 L RDW Std Deviation 56.9 H Plt Count 251 D Neut % (Auto) 74 Lymph % (Auto) 14 [place] % (Auto) 10 Eos % (Auto) 1 Baso % (Auto) 1 Neut # (Auto) 6.5 Lymph # (Auto) 1.3 [place] # (Auto) 0.9 H Eos # (Auto) 0.1 Baso # (Auto) 0.1 Immature Gran # (Auto) 0.10 H Absolute Nucleated RBC 0.00 Immature Gran % 1 H Nucleated RBC % 0 Puncture Site Left Brachial ABG pH 7.41 ABG pCO2 45 ABG pO2 72 L D ABG HCO3 29 H ABG O2 Saturation 95 ABG Base Excess 4 H FiO2 35 Sodium 140 Potassium 4.6 Chloride 98 Carbon Dioxide 26.6 Anion Gap 15 BUN 40 H Creatinine 5.6 H* D Estim Creat Clear Calc 8.3 L eGFR 8 L* BUN/Creatinine Ratio 7 L Glucose 99 Calculated Osmolality 289 Lactic Acid Calcium 9.7 Corrected Calcium 9.7 Phosphorus 3.7 Magnesium 2.0 Total Bilirubin 0.5 AST 33 ALT 11 Alkaline Phosphatase 93 Total Protein 7.0 Albumin 4.2 D Globulin 2.8 Albumin/Globulin Ratio 1.5 Blood Type Antibody Screen Crossmatch Blood Bank Wristband ID ABG Interpretation ABG results: 04/10/25 04/12/25 04/12/25 11:00 04:57 13:44 ABG pH 7.45 7.38 7.30 L ABG pCO2 60 H 58 H 54 H ABG pO2 79 L 50 L* D 53 L* ABG HCO3 42 H 34 H 27 H ABG O2 Saturation 96 80 L 83 L ABG Base Excess 16 H 7 H 0 VBG pH 7.38 VBG pCO2 58 H VBG pO2 50 VBG Base Excess 7 H 04/12/25 04/13/25 14:00 04:10 ABG pH 7.38 7.41 ABG pCO2 44 D 45 ABG pO2 196 H D 72 L D ABG HCO3 26 29 H ABG O2 Saturation 97 95 ABG Base Excess 1 4 H VBG pH VBG pCO2 VBG pO2 VBG Base Excess Assessment & Plan Assessment and plan (1) Bowel obstruction: Status: Acute (2) ESRD (end stage renal disease): Status: Acute Assessment and plan: Patient had hemodialysis yesterday Will schedule hemodialysis tomorrow Family is on the bedside Discussed plan with the family in detail. (3) CHF exacerbation: Status: Acute
--- NOTE | 2025-04-13 20:47 | ESPR_ITS ---
<Statement entered by Francisco Ren MD - 04/13/25 22:40> ICU downgrade after initially being upgraded s/p ex lap for small bowel obstruction. Procedure yielded what appeared to be 2 large pieces of fruit/seed. She was extubated today and weaned off Levophed and at bedside patient was tired and NG tube in place. Nephrology consulted and plan for hemodialysis tomorrow. Currently on Zosyn for broad-spectrum antibiotic coverage status post ex lap. Will follow-up with general surgery regarding advancing diet but at this time we will keep NPO. ----- Note reviewed and agree with care plan as documented. Please refer to the note below for further details. Plan discussed with attending physician Dr. Josh Ren MD PGY-2 Internal Medicine Documentation for date of: 04/13/25 Subjective Subjective Interval history: Patient was seen and examined at bedside. ICU downgrade after successful extubation and titration down and off of levophed. Patient is excessively lethargic but opens her eyes to her name being called. At bedside, BP 146/66, and HR 100. s/p ex lap for small bowel obstruction. Procedure yielded what appeared to be 2 large pieces of fruit/seed. She is accompanied by family at bedside. Scheduled to complete hemodialysis tomorrow. Exam Vital Signs Temp Pulse Resp BP Pulse Ox O2 Del Method O2 Flow Rate 97.3 F 100 19 146/66 H 97 Mechanical Ventilation 3 04/13/25 16:00 04/13/25 17:00 04/13/25 17:00 04/13/25 17:00 04/13/25 17:00 04/12/25 15:05 04/13/25 14:24 FiO2 35 04/13/25 09:56 Narrative Exam General: Alert and appears more fatigued/tired compared to prior, NGT in place HEENT: Normocephalic, Atraumatic. Normal neck range of motion, Supple. Trachea midline. Respiratory: Lungs are clear to auscultation, Breath sounds are equal bilaterally with equal chest expansion. Cardiovascular: RRR, normal S1, S2, no murmurs Abdomen: Vertical surgical scar covered under bandage. Abdomen non-distended, without erythema, or lesions. Diminished/absent bowel sounds x 4 percussion dull. Musculoskeletal: No erythema, swelling, tenderness of any joints. Neurologic: NEURO: Oriented x3, cranial nerves II to XII grossly intact. Left upper extremity paralysis and loss of sensation residual effect of CVA in 2023 Objective Labs 04/15/25 04:50 04/15/25 16:44 Labs: Laboratory Results - last 24 hr 04/12/25 04/12/25 04/13/25 11:08 20:30 02:08 WBC 8.6 RBC 3.30 L Hgb 10.4 L 10.0 L Hct 33.3 L 32.0 L MCV 101 H MCH 31.5 MCHC 31.2 RDW Std Deviation 56.5 H Plt Count 220 D Neut % (Auto) 80 Lymph % (Auto) 10 [place] % (Auto) 8 Eos % (Auto) 0 Baso % (Auto) 1 Neut # (Auto) 6.9 Lymph # (Auto) 0.9 L [place] # (Auto) 0.7 Eos # (Auto) 0.0 Baso # (Auto) 0.0 Immature Gran # (Auto) 0.10 H Absolute Nucleated RBC 0.02 H Immature Gran % 1 H Nucleated RBC % 0 Puncture Site ABG pH ABG pCO2 ABG pO2 ABG HCO3 ABG O2 Saturation ABG Base Excess FiO2 Sodium Potassium Chloride Carbon Dioxide Anion Gap BUN Creatinine Estim Creat Clear Calc eGFR BUN/Creatinine Ratio Glucose Calculated Osmolality Calcium Corrected Calcium Phosphorus Magnesium Total Bilirubin AST ALT Alkaline Phosphatase Total Protein Albumin Globulin Albumin/Globulin Ratio Blood Type A Positive Antibody Screen NEGATIVE Crossmatch See Detail Blood Bank Wristband ID Yes 04/13/25 04/13/25 04:10 04:33 WBC 8.8 RBC 3.21 L Hgb 10.1 L Hct 32.9 L MCV 103 H MCH 31.5 MCHC 30.7 L RDW Std Deviation 56.9 H Plt Count 251 D Neut % (Auto) 74 Lymph % (Auto) 14 [place] % (Auto) 10 Eos % (Auto) 1 Baso % (Auto) 1 Neut # (Auto) 6.5 Lymph # (Auto) 1.3 [place] # (Auto) 0.9 H Eos # (Auto) 0.1 Baso # (Auto) 0.1 Immature Gran # (Auto) 0.10 H Absolute Nucleated RBC 0.00 Immature Gran % 1 H Nucleated RBC % 0 Puncture Site Left Brachial ABG pH 7.41 ABG pCO2 45 ABG pO2 72 L D ABG HCO3 29 H ABG O2 Saturation 95 ABG Base Excess 4 H FiO2 35 Sodium 140 Potassium 4.6 Chloride 98 Carbon Dioxide 26.6 Anion Gap 15 BUN 40 H Creatinine 5.6 H* D Estim Creat Clear Calc 8.3 L eGFR 8 L* BUN/Creatinine Ratio 7 L Glucose 99 Calculated Osmolality 289 Calcium 9.7 Corrected Calcium 9.7 Phosphorus 3.7 Magnesium 2.0 Total Bilirubin 0.5 AST 33 ALT 11 Alkaline Phosphatase 93 Total Protein 7.0 Albumin 4.2 D Globulin 2.8 Albumin/Globulin Ratio 1.5 Blood Type Antibody Screen Crossmatch Blood Bank Wristband ID ABG Interpretation ABG results: 04/10/25 04/12/25 04/12/25 11:00 04:57 13:44 ABG pH 7.45 7.38 7.30 L ABG pCO2 60 H 58 H 54 H ABG pO2 79 L 50 L* D 53 L* ABG HCO3 42 H 34 H 27 H ABG O2 Saturation 96 80 L 83 L ABG Base Excess 16 H 7 H 0 VBG pH 7.38 VBG pCO2 58 H VBG pO2 50 VBG Base Excess 7 H 04/12/25 04/13/25 14:00 04:10 ABG pH 7.38 7.41 ABG pCO2 44 D 45 ABG pO2 196 H D 72 L D ABG HCO3 26 29 H ABG O2 Saturation 97 95 ABG Base Excess 1 4 H VBG pH VBG pCO2 VBG pO2 VBG Base Excess Quality Measures Quality Measures VTE prophylaxis Advance care planning discussed with:: patient Assessment & Plan Assessment Current Active Medications: Generic Name Dose Route Start Last Admin Trade Name Freq PRN Reason Stop Dose Admin Dextrose 50 ml 04/09/25 02:33 Dextrose 50%-Water Inj 50 Ml Syringe IV 05/09/25 02:32 Q15MIN PRN BG <50 OR BG <70 & pt unresponsive Glucagon 1 mg 04/09/25 02:33 Glucagon Inj 1 Mg Vial IM Q15MIN PRN BG <70, and no IV access Albumin Human 25 gm in 100 mls @ 100 mls/min 04/12/25 09:28 Albuminar-25 Ivpb IV QDAY PRN dialysis Piperacillin Sod/Tazobactam 50 mls @ 100 mls/hr 04/13/25 06:00 04/13/25 14:02 Sod 2.25 gm/ Sodium Chloride IV 04/20/25 05:59 100 mls/hr Q8HR NADEEM Administration Protocol Insulin Human Lispro 0 unit 04/09/25 18:00 04/13/25 17:57 Insulin Lispro (Admelog) 1 Unit/0.01 Ml Unit SC 05/09/25 17:59 Not Given Q6HR NADEEM Protocol Lidocaine 1 patch 04/09/25 18:50 Lidocaine 5% 1 Patch TOP 05/09/25 18:49 UD PRN PAIN Protocol Metoclopramide HCl 10 mg 04/12/25 19:28 Metoclopramide Inj 5 Mg/Ml Vial 2 Ml IVP 05/10/25 08:59 Q6HR PRN STOMACH DISCOMFORT Protocol Midodrine 10 mg 04/12/25 08:37 Midodrine 5 Mg Tablet PO 05/12/25 08:44 TID PRN SBP <95 Ondansetron HCl 4 mg 04/09/25 11:34 04/09/25 21:51 Ondansetron Inj 2 Mg/Ml Inj 2 Ml IVP 05/09/25 11:33 4 mg Q6H PRN Administration NAUSEA OR VOMITING Protocol Sodium Chloride 3 ml 04/09/25 02:37 Sodium Chloride Rt Ree 0.9% 3 Ml Nebu INH 05/09/25 02:36 PRN PRN SOLN Plan Nani Triplett is a 69-year-old female with past medical history of end-stage renal disease on hemodialysis M/W/F, diabetes mellitus, hypertension, CVA with residual left-sided weakness, who was brought in to the ED by daughter on 04/09/2025 for worsening left-sided abdominal pain and swelling the day before. Patient admitted for inpatient workup and management of SBO as found on imaging. #High-grade small bowel obstruction, resolved #s/p ex lap and bowel resection, 04/12 #Lactic acidosis, improving Presentd with failure to generate bowel movement, 10/10 abdominal pain, and diminished bowel sounds on physical exam but endorses ability to pass flatus. KUB showed small bowel obstruction pattern. CTAP confirmed SBO, additionally, 5 mm pulmonary nodule right middle lobe, atrophic kidneys with significant renal scarring, irregular urinary bladder wall thickening. Initial lactate 2.9 and peaked at 4.8 after hemodialysis but now downtrending. Repeat small bowel series showed high-grade SBO and was taken to OR for ex-lap. At the proximal ileum patient was noted to have 2 large pieces of foreign objects that were causing complete bowel obstruction. Distal to the area of obstruction the small bowel was completely decompressed. Proximal to the area of obstruction an approximately 3 cm enterotomy was performed, the proximal small bowel was decompressed with a suction tube. The foreign bodies were milked retrograde and were removed from the enterotomy site. These pieces appeared to be large pieces of undigested fruit. Once the proximal small bowel was decompressed, the enterotomy site was closed in transverse fashion. Pt returned intubated to the ICU. Overnight was hypotensive and unresponsive to fluids, therefore started on levophed. Given new development her abx coverage was broadened. This AM, she was able to be weened off of levo and all sedation was stopped. - Zosyn IV 2.25g Q8h - ordered B ctx ? NGT placed ? Metoclopramide 10mg Q6h ? Zofran IVP 4mg Q6h PRN for nausea/vomiting ? IV fluids #ESRD on HD (M/W/F) #Hyperkalemia, resolved Followed by Dr. Gunderson in [place] ? Nephrology consulted, appreciate recs ? Midodrine 10 mg TID and albumen PRN for maintaining normal BP ? Avoid nephrotoxic agents, renally dose medications #Type 2 diabetes mellitus, at goal History of diabetes mellitus for more than 2 decades, on insulin. A1c 4.9%. ? SSI ? Hypoglycemic protocol in place #History of hypertension ? Hypo-/normotensive at this time, will hold off on antihypertensives Health Maintenance: Disposition: tele, pending surgery recommendations in the setting of confirmed SBO on repeat abdominal series Diet: N.p.o. PPx DVT: heparin 5000u SC Code Status: full ----- This case was discussed with my attending physician, Dr. Moreno, and senior resident, Dr Mikal Winston. Lori Yuen, DO PGY I Attending Provider Attestation/Addendum I attest that I was physically present for the evaluation, physical examination, lab and imaging review of the patient with the residents. I discussed the case with the residents and agree with the findings and plans of care as documented above. Kan Moreno MD
[2025-04-14] VITALS (27 sets, daily range): BP systolic 98–141; BP diastolic 48–83; PULSE 88–117; RESP 15–23; TEMP 36.2–37.7; O2SAT 92–99; BMI 27.1; BMI 12.0
[2025-04-14] MEDS: PIPERACILLIN/TAZO 2.25GM INJ 2.25 GM in SODIUM CHLORIDE 0.9% (Popper) 50 ML IV ×3 (05:16→21:36)
[2025-04-14 05:51] LABS: Basophils # (Auto) 0.0 Thou/mm3 (0.0-0.2); Basophils % (Auto) 1 % (0-2.5); Eosinophils # (Auto) 0.2 Thou/mm3 (0.0-0.5); Eosinophils % (Auto) 2 % (0-10); Hematocrit 31.1 % (36.0-46.0); Hemoglobin 9.5 g/dL (12.0-16.0); Immature Granulocytes Auto 0.15 Thou/mm3 (0.00-0.00); Lymphocytes # (Auto) 1.0 Thou/mm3 (1.0-4.8); Lymphocytes % (Auto) 13 % (10-50); Mean Corpuscular HGB Conc 30.5 g/dl (31.0-37.0); Mean Corpuscular Hemoglobin 31.7 pg (25.0-35.0); Mean Corpuscular Volume 104 fL (80-100); Monocytes # (Auto) 0.9 Thou/mm3 (0.0-0.8); Monocytes % (Auto) 12 % (0-12); Neutrophils # (Auto) 5.1 Thou/mm3 (1.8-7.7); Neutrophils % (Auto) 70 % (37-80); Nucleated Red Blood Cell # 0.00 Thou/mm3 (0.00-0.00); Nucleated Red Blood Cell % 0 /100 WBC (0); Platelet Count 182 Thou/mm3 (140-440); RDW Standard Deviation 59.1 fL (36.4-46.3); Red Blood Count 3.00 Miln/mm3 (4.00-5.20); White Blood Count 7.3 Thou/mm3 (3.6-11.0)
[2025-04-14 06:33] LABS: Alanine Aminotransferase 11 U/L (10-49); Albumin, Serum 4.0 gm/dL (3.4-4.8); Albumin/Globulin Ratio 1.3 (1.2-2.2); Alkaline Phosphatase 88 U/L (46-116); Anion Gap 18 (7-16); Aspartate Amino Transferase 35 U/L (0-34); BUN/Creatinine Ratio 7 Ratio (12-20); Bilirubin,Total 0.3 mg/dL (0.3-1.2); Blood Urea Nitrogen 54 mg/dL (9-23); Calcium 10.0 mg/dL (8.3-10.6); Calcium (Corrected) 10.0 mg/dL (8.5-10.1); Carbon Dioxide 23.5 mMol/L (20.0-31.0); Chloride 101 mMol/L (98-107); Creatinine (Component) 7.5 mg/dL (0.6-1.3); Estimated Creatinine Clearance 6.3 mL/min (>60); Globulin 3.1 gm/dL (2.3-3.5); Glucose 67 mg/dL (74-106); Magnesium 2.5 mg/dL (1.6-2.6); Osmolality,Calculated 295 (275-295); Phosphorous 5.5 mg/dL (2.4-5.1); Potassium 4.6 mMol/L (3.4-5.1); Sodium 142 mMol/L (136-145); Total Protein 7.1 gm/dL (5.7-8.2); eGFR 6 See Note
--- NOTE | 2025-04-14 08:46 | PC.SS ---
Follow up note: General surgery following. Pt is on IV antibiotic. Dr. Jack consulting. Pt will return home upon dc.
[2025-04-14] MEDS: ONDANSETRON INJ 2 MG/ML INJ 2 ML 4 MG IVP (10:26)
--- NOTE | 2025-04-14 12:32 | PD.RESPRO ---
Documentation for date of: 04/14/25 Subjective Subjective Interval history: No acute overnight events. Seen and examined at bedside while undergoing dialysis. She appeared very weak and could not talk but was able to write some words and does appear alert and oriented. Touch base with general surgeon and recommended deseeding NG tube and starting clear liquids. Will continue to monitor patient as she recovers from her exploratory laparotomy. Remains on broad-spectrum GI prophylaxis. Otherwise, heart rate 107 but otherwise vital signs stable. No leukocytosis, hemoglobin slight drop from 10.1 to 9.5, CHEM panel consistent with ESRD but otherwise unremarkable. Exam Vital Signs Temp Pulse Resp BP Pulse Ox O2 Del Method O2 Flow Rate 97.8 F 107 H 18 131/63 H 98 Mechanical Ventilation 2 04/14/25 09:00 04/14/25 12:12 04/14/25 12:12 04/14/25 12:12 04/14/25 12:12 04/12/25 15:05 04/14/25 12:12 FiO2 35 04/13/25 09:56 Narrative Exam General: Alert and appears more fatigued/tired compared to prior, NGT in place HEENT: Normocephalic, Atraumatic. Normal neck range of motion, Supple. Trachea midline. Respiratory: Lungs are clear to auscultation, Breath sounds are equal bilaterally with equal chest expansion. Cardiovascular: RRR, normal S1, S2, no murmurs Abdomen: Vertical surgical scar covered under bandage. Abdomen non-distended, without erythema, or lesions. Diminished/absent bowel sounds x 4 percussion dull. Musculoskeletal: No erythema, swelling, tenderness of any joints. Neurologic: NEURO: Oriented x3, cranial nerves II to XII grossly intact. Left upper extremity paralysis and loss of sensation residual effect of CVA in 2023 Objective Labs 04/15/25 04:50 04/15/25 16:44 Labs: Laboratory Results - last 24 hr 04/14/25 04:55 WBC 7.3 RBC 3.00 L Hgb 9.5 L Hct 31.1 L MCV 104 H MCH 31.7 MCHC 30.5 L RDW Std Deviation 59.1 H Plt Count 182 D Neut % (Auto) 70 Lymph % (Auto) 13 [place] % (Auto) 12 Eos % (Auto) 2 Baso % (Auto) 1 Neut # (Auto) 5.1 Lymph # (Auto) 1.0 [place] # (Auto) 0.9 H Eos # (Auto) 0.2 Baso # (Auto) 0.0 Immature Gran # (Auto) 0.15 H Absolute Nucleated RBC 0.00 Immature Gran % 2 H Nucleated RBC % 0 Sodium 142 Potassium 4.6 Chloride 101 Carbon Dioxide 23.5 Anion Gap 18 H BUN 54 H Creatinine 7.5 H* D Estim Creat Clear Calc 6.3 L eGFR 6 L* BUN/Creatinine Ratio 7 L Glucose 67 L Calculated Osmolality 295 Calcium 10.0 Corrected Calcium 10.0 Phosphorus 5.5 H Magnesium 2.5 Total Bilirubin 0.3 AST 35 H ALT 11 Alkaline Phosphatase 88 Total Protein 7.1 Albumin 4.0 Globulin 3.1 Albumin/Globulin Ratio 1.3 ABG Interpretation ABG results: 04/10/25 04/12/25 04/12/25 11:00 04:57 13:44 ABG pH 7.45 7.38 7.30 L ABG pCO2 60 H 58 H 54 H ABG pO2 79 L 50 L* D 53 L* ABG HCO3 42 H 34 H 27 H ABG O2 Saturation 96 80 L 83 L ABG Base Excess 16 H 7 H 0 VBG pH 7.38 VBG pCO2 58 H VBG pO2 50 VBG Base Excess 7 H 04/12/25 04/13/25 14:00 04:10 ABG pH 7.38 7.41 ABG pCO2 44 D 45 ABG pO2 196 H D 72 L D ABG HCO3 26 29 H ABG O2 Saturation 97 95 ABG Base Excess 1 4 H VBG pH VBG pCO2 VBG pO2 VBG Base Excess Quality Measures Quality Measures VTE prophylaxis Advance care planning discussed with:: patient Assessment & Plan Assessment Current Active Medications: Generic Name Dose Route Start Last Admin Trade Name Freq PRN Reason Stop Dose Admin Dextrose 50 ml 04/09/25 02:33 Dextrose 50%-Water Inj 50 Ml Syringe IV 05/09/25 02:32 Q15MIN PRN BG <50 OR BG <70 & pt unresponsive Glucagon 1 mg 04/09/25 02:33 Glucagon Inj 1 Mg Vial IM Q15MIN PRN BG <70, and no IV access Albumin Human 25 gm in 100 mls @ 100 mls/min 04/12/25 09:28 Albuminar-25 Ivpb IV QDAY PRN dialysis Piperacillin Sod/Tazobactam 50 mls @ 100 mls/hr 04/13/25 06:00 04/14/25 05:16 Sod 2.25 gm/ Sodium Chloride IV 04/20/25 05:59 100 mls/hr Q8HR NADEEM Administration Protocol Insulin Human Lispro 0 unit 04/09/25 18:00 04/14/25 05:24 Insulin Lispro (Admelog) 1 Unit/0.01 Ml Unit SC 05/09/25 17:59 Not Given Q6HR NADEEM Protocol Lidocaine 1 patch 04/09/25 18:50 Lidocaine 5% 1 Patch TOP 05/09/25 18:49 UD PRN PAIN Protocol Metoclopramide HCl 10 mg 04/12/25 19:28 Metoclopramide Inj 5 Mg/Ml Vial 2 Ml IVP 05/10/25 08:59 Q6HR PRN STOMACH DISCOMFORT Protocol Midodrine 10 mg 04/12/25 08:37 Midodrine 5 Mg Tablet PO 05/12/25 08:44 TID PRN SBP <95 Ondansetron HCl 4 mg 04/09/25 11:34 04/14/25 10:26 Ondansetron Inj 2 Mg/Ml Inj 2 Ml IVP 05/09/25 11:33 4 mg Q6H PRN Administration NAUSEA OR VOMITING Protocol Sodium Chloride 3 ml 04/09/25 02:37 Sodium Chloride Rt Ree 0.9% 3 Ml Nebu INH 05/09/25 02:36 PRN PRN SOLN Plan Nani Triplett is a 69-year-old female with past medical history of end-stage renal disease on hemodialysis M/W/F, diabetes mellitus, hypertension, CVA with residual left-sided weakness, who was brought in to the ED by daughter on 04/09/2025 for worsening left-sided abdominal pain and swelling the day before. Patient admitted for inpatient workup and management of SBO as found on imaging. #High-grade small bowel obstruction, resolved #s/p ex lap and bowel resection, 04/12 #Lactic acidosis, improving Presentd with failure to generate bowel movement, 10/10 abdominal pain, and diminished bowel sounds on physical exam but endorses ability to pass flatus. KUB showed small bowel obstruction pattern. CTAP confirmed SBO, additionally, 5 mm pulmonary nodule right middle lobe, atrophic kidneys with significant renal scarring, irregular urinary bladder wall thickening. Initial lactate 2.9 and peaked at 4.8 after hemodialysis but now downtrending. Repeat small bowel series showed high-grade SBO and was taken to OR for ex-lap. At the proximal ileum patient was noted to have 2 large pieces of foreign objects that were causing complete bowel obstruction. Distal to the area of obstruction the small bowel was completely decompressed. Proximal to the area of obstruction an approximately 3 cm enterotomy was performed, the proximal small bowel was decompressed with a suction tube. The foreign bodies were milked retrograde and were removed from the enterotomy site. These pieces appeared to be large pieces of undigested fruit. Once the proximal small bowel was decompressed, the enterotomy site was closed in transverse fashion. Pt returned intubated to the ICU. Overnight was hypotensive and unresponsive to fluids, therefore started on levophed. Given new development her abx coverage was broadened. This AM, she was able to be weened off of levo and all sedation was stopped. ? General Surgery following, appreciate recommendations ? NG tube discontinued and started on clear liquids ? Zosyn IV 2.25 g every 8 hours ? Blood cultures 04/13: NGTD ? Metoclopramide 10mg Q6h ? Zofran IVP 4mg Q6h PRN for nausea/vomiting #ESRD on HD (M/W/) #Hyperkalemia, resolved Followed by Dr. Gunderson in [place] ? Nephrology consulted, appreciate recs ? Midodrine 10 mg TID and albumen PRN for maintaining normal BP ? Avoid nephrotoxic agents, renally dose medications #Type 2 diabetes mellitus, at goal History of diabetes mellitus for more than 2 decades, on insulin. A1c 4.9%. ? SSI ? Hypoglycemic protocol in place #History of hypertension ? Hypo-/normotensive at this time, will hold off on antihypertensives Health Maintenance: Disposition: Status post exploratory laparotomy for SBO and advancing diet Diet: Clear liquid PPx DVT: heparin 5000u SC Code Status: full ----- Note reviewed and agree with care plan as documented. Please refer to the note below for further details. Plan discussed with attending physician Dr. Josh eRn MD PGY-2 Internal Medicine Attending Provider Attestation/Addendum I attest that I was physically present for the evaluation, physical examination, lab and imaging review of the patient with the residents. I discussed the case with the residents and agree with the findings and plans of care as documented above. Kan Moreno MD
--- NOTE | 2025-04-14 12:34 | ESPR_ITS ---
Documentation for date of: 04/14/25 Subjective Subjective Narrative: Patient is seen and examined. She was extubated yesterday and transferred to [facility] yesterday. Her pain is improving. She denies nausea or vomiting. She started passing flatus Exam Vital Signs Temp Pulse Resp BP Pulse Ox O2 Del Method O2 Flow Rate 97.8 F 107 H 18 131/63 H 98 Mechanical Ventilation 2 04/14/25 09:00 04/14/25 12:12 04/14/25 12:12 04/14/25 12:12 04/14/25 12:12 04/12/25 15:05 04/14/25 12:12 FiO2 35 04/13/25 09:56 Routine Abdominal Exam Comments: Abdomen is soft and minimally distended. Incision with dressings clean, dry and intact Assessment & Plan Assessment Additional comments: Postop day #3 status post exploratory laparotomy with enterotomy and removal of foreign objects and small bowel decompression Plan DC NG tube and start clear liquids. PROCEDURES: Procedures Exploratory laparotomy, enterotomy with removal of 2 foreign objects causing complete bowel obstruction Small bowel decompression
[2025-04-14] MEDS: Milk Of Magnesia Susp 30 ML UDC NG (14:44)
[2025-04-15] VITALS (11 sets, daily range): BP systolic 130–160; BP diastolic 74–87; PULSE 80–111; RESP 13–21; TEMP 36.1–36.3; O2SAT 92–100; BMI 27.1
[2025-04-15] MEDS: PIPERACILLIN/TAZO 2.25GM INJ 2.25 GM in SODIUM CHLORIDE 0.9% (Popper) 50 ML IV ×3 (05:26→21:10)
--- NOTE | 2025-04-15 05:42 | PC.NURSE ---
dr arrieta notified of patient being increasingly agitated, repeatedly taking off nasal cannula despite redirection and avasure at bedside. Pt is continuously yelling and throwing things off of bed. Dr states to give 25mg IV benadryl x 1. No orders for restraints at this time.
[2025-04-15 06:12] LABS: Basophils # (Auto) 0.0 Thou/mm3 (0.0-0.2); Basophils % (Auto) 0 % (0-2.5); Eosinophils # (Auto) 0.3 Thou/mm3 (0.0-0.5); Eosinophils % (Auto) 3 % (0-10); Hematocrit 31.1 % (36.0-46.0); Hemoglobin 9.7 g/dL (12.0-16.0); Immature Granulocytes Auto 0.39 Thou/mm3 (0.00-0.00); Lymphocytes # (Auto) 1.2 Thou/mm3 (1.0-4.8); Lymphocytes % (Auto) 14 % (10-50); Mean Corpuscular HGB Conc 31.2 g/dl (31.0-37.0); Mean Corpuscular Hemoglobin 31.4 pg (25.0-35.0); Mean Corpuscular Volume 101 fL (80-100); Monocytes # (Auto) 1.2 Thou/mm3 (0.0-0.8); Monocytes % (Auto) 14 % (0-12); Neutrophils # (Auto) 5.6 Thou/mm3 (1.8-7.7); Neutrophils % (Auto) 65 % (37-80); Nucleated Red Blood Cell # 0.00 Thou/mm3 (0.00-0.00); Nucleated Red Blood Cell % 0 /100 WBC (0); Platelet Count 192 Thou/mm3 (140-440); RDW Standard Deviation 56.2 fL (36.4-46.3); Red Blood Count 3.09 Miln/mm3 (4.00-5.20); White Blood Count 8.6 Thou/mm3 (3.6-11.0)
[2025-04-15 06:38] LABS: Alanine Aminotransferase 17 U/L (10-49); Albumin, Serum 4.4 gm/dL (3.4-4.8); Albumin/Globulin Ratio 1.2 (1.2-2.2); Alkaline Phosphatase 83 U/L (46-116); Anion Gap 16 (7-16); Aspartate Amino Transferase 46 U/L (0-34); BUN/Creatinine Ratio 8 Ratio (12-20); Bilirubin,Total 0.4 mg/dL (0.3-1.2); Blood Urea Nitrogen 37 mg/dL (9-23); Calcium 10.0 mg/dL (8.3-10.6); Calcium (Corrected) 10.0 mg/dL (8.5-10.1); Carbon Dioxide 26.0 mMol/L (20.0-31.0); Chloride 96 mMol/L (98-107); Creatinine (Component) 4.7 mg/dL (0.6-1.3); Estimated Creatinine Clearance 10.0 mL/min (>60); Globulin 3.6 gm/dL (2.3-3.5); Glucose 65 mg/dL (74-106); Magnesium 2.3 mg/dL (1.6-2.6); Osmolality,Calculated 282 (275-295); Phosphorous 4.0 mg/dL (2.4-5.1); Potassium 4.1 mMol/L (3.4-5.1); Sodium 138 mMol/L (136-145); Total Protein 8.0 gm/dL (5.7-8.2); eGFR 10 See Note
[2025-04-15] MEDS: HYDROmorphone INJ 2 MG/ML VIAL 0.5 MG IVP ×2 (13:05→21:09)
[2025-04-15] MEDS: LIDOCAINE 5% 1 PATCH TOP (13:05)
--- NOTE | 2025-04-15 13:41 | PD.SURPROG ---
Documentation for date of: 04/15/25 Subjective Subjective Narrative: Patient is seen and examined. She is resting comfortably. Her pain is improving. She is tolerating clear liquids and having bowel movements Exam Vital Signs Temp Pulse Resp BP Pulse Ox O2 Del Method O2 Flow Rate 97.0 F 87 15 157/83 H 99 Nasal Cannula 4 04/15/25 12:00 04/15/25 12:00 04/15/25 12:00 04/15/25 12:00 04/15/25 12:00 04/15/25 12:04/15/25 12:00 FiO2 35 04/15/25 07:55 Constitutional Constitutional: no acute distress Routine Abdominal Exam Comments: Abdomen is soft and nondistended. Incision is clean, dry and intact. Bowel sounds are present and active Assessment & Plan Assessment Additional comments: Postop day #4 status post exploratory laparotomy with enterotomy and removal of foreign objects and small bowel decompression Plan Advance to full liquids. Physical therapy to ambulate the patient PROCEDURES: Procedures Exploratory laparotomy, enterotomy with removal of 2 foreign objects causing complete bowel obstruction Small bowel decompression
--- NOTE | 2025-04-15 14:23 | XR_ITS ---
Examination: AP chest single view Technique one AP portable supine chest single view Date and time: April 15, 2025, 1432 hrs., Comparison 04/13/2025 Indications: Chest pain shortness of breath today Findings: The patient has been extubated Mild heart failure Mild to moderate enlargement left ventricle Prominent vascular congestion with mild septal edema at the lung bases No pneumonia Partial visualization reverse left shoulder arthroplasty Impression: Mild heart failure
--- NOTE | 2025-04-15 14:23 | EKG_ITS ---
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
[2025-04-15] MEDS: MG HYD/AL HYD/SIME (Maalox Reg) SUSP 30 ML UDC PO (15:06)
[2025-04-15] MEDS: ZINC SULFATE 220 MG CAPSULE PO (15:06)
[2025-04-15 17:20] LABS: Albumin, Serum 4.4 gm/dL (3.4-4.8); Anion Gap 13 (7-16); BUN/Creatinine Ratio 7 Ratio (12-20); Blood Urea Nitrogen 39 mg/dL (9-23); Calcium 9.9 mg/dL (8.3-10.6); Calcium (Corrected) 9.9 mg/dL (8.5-10.1); Carbon Dioxide 26.7 mMol/L (20.0-31.0); Chloride 95 mMol/L (98-107); Creatinine (Component) 5.5 mg/dL (0.6-1.3); Estimated Creatinine Clearance 8.6 mL/min (>60); Glucose 91 mg/dL (74-106); Osmolality,Calculated 279 (275-295); Phosphorous 4.0 mg/dL (2.4-5.1); Potassium 3.8 mMol/L (3.4-5.1); Sodium 135 mMol/L (136-145); eGFR 8 See Note
[2025-04-15 17:25] LABS: Troponin I 0.111 ng/mL (0.0-0.045)
--- NOTE | 2025-04-15 18:03 | ESPR_ITS ---
<Statement entered by Marcell Dixon MD - 04/16/25 07:38> Patient examined and case discussed with the team including attending physician. Note reviewed, I agree with the care plan as documented. Please refer to the note below for further details. - Marcell Dixon MD, PGY 3 Disclaimer: The document may contain phonetic/typographic errors due to voice recognition software. These errors are purely due to imperfections in the software program. Documentation for date of: 04/15/25 Subjective Subjective Interval history: Patient was seen and examined at bedside. No acute events took place overnight. Her pain is improving.? She denies nausea or vomiting.? She started passing flatus And had a bowel movement in the morning. Patient reported pain around the surgical incision site regardless of bowel movements.? Started on clear liquid diet and tolerating intake well without nausea or vomiting.? Overnight patient was agitated secondary to uncontrolled pain and was given Benadryl 25 mg by the overnight team.? Changed orders to Seroquel 25 mg at night for agitation given her advanced age and history of ESRD.? Put as needed pain control with Dilaudid IV 0.5 mg every 4 hour for moderate pain. Diet was advanced to dysphagia 2 as patient tolerated CLD well. Patient received complete dialysis session yesterday for 3 hours and 0.8 L of fluid was removed. Exam Vital Signs Temp Pulse Resp BP Pulse Ox O2 Del Method O2 Flow Rate 97.1 F 82 13 140/87 H 94 L Nasal Cannula 2 04/15/25 16:00 04/15/25 16:00 04/15/25 16:00 04/15/25 16:00 04/15/25 16:00 04/15/25 16:00 04/15/25 16:00 FiO2 35 04/15/25 07:55 Narrative Exam Narrative Exam General: Alert and appears more fatigued/tired compared to prior, NGT in place HEENT: Normocephalic, Atraumatic. Normal neck range of motion, Supple. Trachea midline. Respiratory: Lungs are clear to auscultation, Breath sounds are equal bilaterally with equal chest expansion. Cardiovascular: RRR, normal S1, S2, no murmurs Abdomen: Vertical surgical scar covered under bandage. Abdomen is soft and minimally distended.? Incision with dressings clean, dry and intact. Diminished/absent bowel sounds x 4. percussion dull.? Musculoskeletal: No erythema, swelling, tenderness of any joints. Neurologic: NEURO: Oriented x3, cranial nerves II to XII grossly intact.? Left upper extremity paralysis and loss of sensation residual effect of CVA in 2023 Objective Labs 04/16/25 05:16 04/16/25 05:16 Labs: Laboratory Results - last 24 hr 04/12/25 04/15/25 04/15/25 11:08 04:50 16:44 WBC 8.6 RBC 3.09 L Hgb 9.7 L Hct 31.1 L MCV 101 H MCH 31.4 MCHC 31.2 RDW Std Deviation 56.2 H Plt Count 192 Neut % (Auto) 65 Lymph % (Auto) 14 Oliver % (Auto) 14 H Eos % (Auto) 3 Baso % (Auto) 0 Neut # (Auto) 5.6 Lymph # (Auto) 1.2 Oliver # (Auto) 1.2 H Eos # (Auto) 0.3 Baso # (Auto) 0.0 Immature Gran # (Auto) 0.39 H Absolute Nucleated RBC 0.00 Immature Gran % 5 H Nucleated RBC % 0 Sodium 138 135 L Potassium 4.1 D 3.8 Chloride 96 L 95 L Carbon Dioxide 26.0 26.7 Anion Gap 16 13 BUN 37 H 39 H Creatinine 4.7 H* D 5.5 H* D Estim Creat Clear Calc 10.0 L 8.6 L eGFR 10 L* 8 L* BUN/Creatinine Ratio 8 L 7 L Glucose 65 L 91 Calculated Osmolality 282 279 Calcium 10.0 9.9 Corrected Calcium 10.0 9.9 Phosphorus 4.0 4.0 Magnesium 2.3 Total Bilirubin 0.4 AST 46 H ALT 17 Alkaline Phosphatase 83 Troponin I 0.111 H* Total Protein 8.0 Albumin 4.4 4.4 Globulin 3.6 H Albumin/Globulin Ratio 1.2 Crossmatch See Detail ABG Interpretation ABG results: 04/10/25 04/12/25 04/12/25 11:00 04:57 13:44 ABG pH 7.45 7.38 7.30 L ABG pCO2 60 H 58 H 54 H ABG pO2 79 L 50 L* D 53 L* ABG HCO3 42 H 34 H 27 H ABG O2 Saturation 96 80 L 83 L ABG Base Excess 16 H 7 H 0 VBG pH 7.38 VBG pCO2 58 H VBG pO2 50 VBG Base Excess 7 H 04/12/25 04/13/25 14:00 04:10 ABG pH 7.38 7.41 ABG pCO2 44 D 45 ABG pO2 196 H D 72 L D ABG HCO3 26 29 H ABG O2 Saturation 97 95 ABG Base Excess 1 4 H VBG pH VBG pCO2 VBG pO2 VBG Base Excess Quality Measures Quality Measures VTE prophylaxis Advance care planning discussed with:: patient Assessment & Plan Assessment Current Active Medications: Generic Name Dose Route Start Last Admin Trade Name Freq PRN Reason Stop Dose Admin Ascorbic Acid 500 mg 04/15/25 21:00 Ascorbic Acid 250 Mg Tablet PO 05/15/25 20:59 BID NADEEM Benzocaine 1 lozenge 04/15/25 12:34 Benzocaine/Menthol 1 Lozenge PO 05/15/25 12:33 Q6HR PRN Throat pain Dextrose 50 ml 04/09/25 02:33 Dextrose 50%-Water Inj 50 Ml Syringe IV 05/09/25 02:32 Q15MIN PRN BG <50 OR BG <70 & pt unresponsive Glucagon 1 mg 04/09/25 02:33 Glucagon Inj 1 Mg Vial IM Q15MIN PRN BG <70, and no IV access Hydromorphone HCl 0.5 mg 04/15/25 12:34 04/15/25 13:05 Hydromorphone Inj 2 Mg/Ml Vial IVP 04/20/25 12:33 0.5 mg Q4HR PRN Administration PAIN SCALE 4-10(Mod-Sev Albumin Human 25 gm in 100 mls @ 100 mls/min 04/12/25 09:28 Albuminar-25 Ivpb IV QDAY PRN dialysis Piperacillin Sod/Tazobactam 50 mls @ 100 mls/hr 04/13/25 06:00 04/15/25 13:32 Sod 2.25 gm/ Sodium Chloride IV 04/20/25 05:59 100 mls/hr Q8HR NADEEM Administration Protocol Insulin Human Lispro 0 unit 04/15/25 07:30 04/15/25 11:28 Insulin Lispro (Admelog) 1 Unit/0.01 Ml Unit SC 05/15/25 07:29 Not Given ACHS NADEEM Protocol Lidocaine 1 patch 04/09/25 18:50 04/15/25 13:05 Lidocaine 5% 1 Patch TOP 05/09/25 18:49 1 patch UD PRN Administration PAIN Protocol Metoclopramide HCl 10 mg 04/12/25 19:28 Metoclopramide Inj 5 Mg/Ml Vial 2 Ml IVP 05/10/25 08:59 Q6HR PRN STOMACH DISCOMFORT Protocol Midodrine 10 mg 04/12/25 08:37 Midodrine 5 Mg Tablet PO 05/12/25 08:44 TID PRN SBP <95 Ondansetron HCl 4 mg 04/09/25 11:34 04/14/25 10:26 Ondansetron Inj 2 Mg/Ml Inj 2 Ml IVP 05/09/25 11:33 4 mg Q6H PRN Administration NAUSEA OR VOMITING Protocol Quetiapine Fumarate 25 mg 04/15/25 13:42 Quetiapine Fumarate 25 Mg Tablet PO 05/16/25 08:59 QDAY PRN AGITATION Sodium Chloride 3 ml 04/09/25 02:37 Sodium Chloride Rt Ree 0.9% 3 Ml Nebu INH 05/09/25 02:36 PRN PRN SOLN Zinc Sulfate 220 mg 04/15/25 13:45 04/15/25 15:06 Zinc Sulfate 220 Mg Capsule PO 05/15/25 13:44 220 mg QDAY NADEEM Administration Plan Nani Triplett is a 69-year-old female with past medical history of end-stage renal disease on hemodialysis M/W/F, diabetes mellitus, hypertension, CVA with residual left-sided weakness, who was brought in to the ED by daughter on 04/09/2025 for worsening left-sided abdominal pain and swelling the day before. Patient admitted for inpatient workup and management of SBO as found on imaging. #High-grade small bowel obstruction, resolved #s/p ex lap and bowel resection, 04/12 #Lactic acidosis, improving Presentd with failure to generate bowel movement, 10/10 abdominal pain, and diminished bowel sounds on physical exam but endorses ability to pass flatus. KUB showed small bowel obstruction pattern. CTAP confirmed SBO, additionally, 5 mm pulmonary nodule right middle lobe, atrophic kidneys with significant renal scarring, irregular urinary bladder wall thickening. Initial lactate 2.9 and peaked at 4.8 after hemodialysis but now downtrending. Repeat small bowel series showed high-grade SBO and was taken to OR for ex-lap. At the proximal ileum patient was noted to have 2 large pieces of foreign objects that were causing complete bowel obstruction. Distal to the area of obstruction the small bowel was completely decompressed. Proximal to the area of obstruction an approximately 3 cm enterotomy was performed, the proximal small bowel was decompressed with a suction tube. The foreign bodies were milked retrograde and were removed from the enterotomy site. These pieces appeared to be large pieces of undigested fruit. Once the proximal small bowel was decompressed, the enterotomy site was closed in transverse fashion. Pt returned intubated to the ICU. Overnight was hypotensive and unresponsive to fluids, therefore started on levophed. Given new development her abx coverage was broadened. This AM, she was able to be weened off of levo and all sedation was stopped. Advanced diet to full liquids. Pt tolerating it well and having BM. ? General Surgery following, appreciate recommendations ? NG tube discontinued, started with CLD, and advanced to full liquid and dysphagia 2 (04/16) - PT to ambulate the patient. ? Zosyn IV 2.25 g every 8 hours ? Blood cultures 04/13: NGTD ? Metoclopramide 10mg Q6h ? Zofran IVP 4mg Q6h PRN for nausea/vomiting #Hospital-acquired delirium #Anxiety In the change management specialist of 04/15, patient was agitated from uncontrolled epigastric pain and started pulling out her lines.? She was given 25 mg of Benadryl x 1, which was discontinued. - Ordered Seroquel p.o. 25 mg daily as needed for agitation #ESRD on HD (M/W/) #Hyperkalemia, resolved Followed by Dr. Gnuderson in [place] ? Nephrology consulted, appreciate recs ? Midodrine 10 mg TID and albumen PRN for maintaining normal BP ? Avoid nephrotoxic agents, renally dose medications #Type 2 diabetes mellitus, at goal History of diabetes mellitus for more than 2 decades, on insulin. A1c 4.9%. ? SSI ? Hypoglycemic protocol in place #History of hypertension, essential, stage II ? Hypo-/normotensive at this time, will hold off on antihypertensives Health Maintenance: Disposition: Status post exploratory laparotomy for SBO and advancing diet Diet: Clear liquid PPx DVT: heparin 5000u SC Code Status: full ----- Note reviewed and agree with care plan as documented. Please refer to the note below for further details. This case was discussed with my attending physician, Dr. Moreno, and senior resident, Dr Dixon. Lori Yuen, DO PGY I Attending Provider Attestation/Addendum I attest that I was physically present for the evaluation, physical examination, lab and imaging review of the patient with the residents. I discussed the case with the residents and agree with the findings and plans of care as documented above. Kan Moreno MD
[2025-04-15] MEDS: ASCORBIC ACID 250 MG TABLET 500 MG PO (21:09)
--- NOTE | 2025-04-15 21:12 | PD.RESEVENT ---
Documentation for date of: 04/15/25 Event Note Event Note: At about 2:30 PM, rapid response was called for patient with reported respiratory rate of 7 and subjective substernal chest pain.? Patient described mild pain substernally and much more marked pain in left upper quadrant of her abdomen.? Patient had received Dilaudid 0.5 mg an hour ago.? Noted to have heart rate of 88, respiratory rate 18, SpO2 100% on 15 L via NC (which was raised fully by the nurse).? BP 157/88.? Patient ANO x 4.? Ordered renal function panel, EKG, troponin, and x-ray.? EKG came back showing sinus rhythm without new changes from prior studies. Chest x-ray showed mild heart failure. No pneumonia.? Trops 0.111. renal function panel consistent with ESRD.?As patient's chest pain subsided, troponins were not further trended. Likely to be NSTEMI type ii in the setting of htn 2/2 uncontrolled pain. Patient was stable.
[2025-04-16] VITALS (9 sets, daily range): BP systolic 136–156; BP diastolic 43–75; PULSE 79–88; RESP 15–23; TEMP 35.9–36.4; O2SAT 95–100
[2025-04-16] MEDS: HYDROmorphone INJ 2 MG/ML VIAL 0.5 MG IVP (03:35)
[2025-04-16] MEDS: PIPERACILLIN/TAZO 2.25GM INJ 2.25 GM in SODIUM CHLORIDE 0.9% (Popper) 50 ML IV ×2 (05:14→14:37)
[2025-04-16 06:21] LABS: Basophils # (Auto) 0.0 Thou/mm3 (0.0-0.2); Basophils % (Auto) 0 % (0-2.5); Eosinophils # (Auto) 0.4 Thou/mm3 (0.0-0.5); Eosinophils % (Auto) 6 % (0-10); Hematocrit 30.4 % (36.0-46.0); Hemoglobin 9.7 g/dL (12.0-16.0); Immature Granulocytes Auto 0.20 Thou/mm3 (0.00-0.00); Lymphocytes # (Auto) 1.2 Thou/mm3 (1.0-4.8); Lymphocytes % (Auto) 17 % (10-50); Mean Corpuscular HGB Conc 31.9 g/dl (31.0-37.0); Mean Corpuscular Hemoglobin 31.5 pg (25.0-35.0); Mean Corpuscular Volume 99 fL (80-100); Monocytes # (Auto) 0.7 Thou/mm3 (0.0-0.8); Monocytes % (Auto) 11 % (0-12); Neutrophils # (Auto) 4.3 Thou/mm3 (1.8-7.7); Neutrophils % (Auto) 63 % (37-80); Nucleated Red Blood Cell # 0.00 Thou/mm3 (0.00-0.00); Nucleated Red Blood Cell % 0 /100 WBC (0); Platelet Count 195 Thou/mm3 (140-440); RDW Standard Deviation 52.9 fL (36.4-46.3); Red Blood Count 3.08 Miln/mm3 (4.00-5.20); White Blood Count 6.8 Thou/mm3 (3.6-11.0)
[2025-04-16 06:35] LABS: Alanine Aminotransferase 21 U/L (10-49); Albumin, Serum 4.3 gm/dL (3.4-4.8); Albumin/Globulin Ratio 1.2 (1.2-2.2); Alkaline Phosphatase 84 U/L (46-116); Anion Gap 14 (7-16); Aspartate Amino Transferase 45 U/L (0-34); BUN/Creatinine Ratio 8 Ratio (12-20); Bilirubin,Total 0.4 mg/dL (0.3-1.2); Blood Urea Nitrogen 49 mg/dL (9-23); Calcium 9.8 mg/dL (8.3-10.6); Calcium (Corrected) 9.8 mg/dL (8.5-10.1); Carbon Dioxide 25.4 mMol/L (20.0-31.0); Chloride 95 mMol/L (98-107); Creatinine (Component) 5.9 mg/dL (0.6-1.3); Estimated Creatinine Clearance 8.0 mL/min (>60); Globulin 3.5 gm/dL (2.3-3.5); Glucose 78 mg/dL (74-106); Magnesium 2.4 mg/dL (1.6-2.6); Osmolality,Calculated 280 (275-295); Phosphorous 4.0 mg/dL (2.4-5.1); Potassium 4.1 mMol/L (3.4-5.1); Sodium 134 mMol/L (136-145); Total Protein 7.8 gm/dL (5.7-8.2); eGFR 7 See Note
[2025-04-16] MEDS: ZINC SULFATE 220 MG CAPSULE PO (09:33)
[2025-04-16] MEDS: ASCORBIC ACID 250 MG TABLET 500 MG PO (09:33)
[2025-04-16] MEDS: SUCRALFATE SUSP 1 GM/10 ML UDC PO ×2 (09:33→14:37)
--- NOTE | 2025-04-16 12:21 | PD.SURPROG ---
Documentation for date of: 04/16/25 Subjective Subjective Narrative: Patient is seen and examined. She is resting comfortably. She is tolerating soft diet without nausea or vomiting and having bowel movements Exam Vital Signs Temp Pulse Resp BP Pulse Ox O2 Del Method O2 Flow Rate 96.6 F L 84 18 155/55 H 95 Nasal Cannula 2 04/16/25 08:04 04/16/25 11:22 04/16/25 11:22 04/16/25 08:04 04/16/25 11:22 04/16/25 08:04 04/16/25 11:22 FiO2 35 04/15/25 07:55 Constitutional Constitutional: no acute distress Routine Abdominal Exam Comments: Abdomen is soft and nondistended. Incision is clean, dry and intact Assessment & Plan Assessment Additional comments: Postop day #5 status post exploratory laparotomy with enterotomy and removal of foreign objects and small bowel decompression Plan Advance diet. If she is tolerating diet she can be discharged from surgical standpoint PROCEDURES: Procedures Exploratory laparotomy, enterotomy with removal of 2 foreign objects causing complete bowel obstruction Small bowel decompression
--- NOTE | 2025-04-16 13:54 | PC.SS ---
Addendum entered by Jessica Bragg 04/16/25 16:33: Call recieved from [facility] [phone], AUTH for reservation [phone] provided by [facility]. Transportation is scheduled for 1830. LITZY Friedman informed. Addendum entered by Jessica Bragg 04/16/25 16:25: Call received from [facility] who requested SS contact [facility] due to call being disconnected. SS contacted [facility] [phone], Gina contacted [facility] and provided auth. to [facility]. SS to confirm with [facility]. informed during rounding patient is ready for discharge. consulted with CUAUHTEMOC Raphael to confirm if patient can discharge with family in private vehicle, patient will need gurney transportation. contacted [facility] [phone] to obtain authorization for transportation. Reservation #[id number] provided and transportation is scheduled for 1820 (tentatively). [facility] [phone] contacted and placed transportation on willcall until [facility] calls to give auth. provided [facility] nurses' station line [phone] to schedule transportation if after 1630. LITZY Friedman, CUAUHTEMOC Raphael, and patient's daughter informed. Original Note: Discharge plan confirmed with patient's daughter, Theodora. Theodora stated patient will return home when medically clear, SNF was declined.
--- NOTE | 2025-04-16 15:32 | ESDS_ITS ---
<Statement entered by Marcell Dixon MD - 04/16/25 18:50> Patient was examined with the team including attending physician. Note reviewed, I agree with the discharge plan as documented. - Marcell Dixon MD PGY 3 Disclaimer: The document may contain phonetic/typographic errors due to voice recognition software. Planned Discharge Date 04/16/25 DS: Providers Provider Date of admission: 04/09/25 11:34 Primary care physician: Anita Bobby Admitting Provider: Arnol Graff MD Attending Provider on Admission: Kan Moreno MD Consults: 04/09/25 02:36 Consult to Nephrology Stat Comment: Hyperkalemia Consulting Provider: Santy Gunderson 04/09/25 11:19 Consult to General Surgery Stat Comment: SBO Consulting Provider: Royal Jack 04/09/25 17:32 Referral Infection Control Routine Comment: Reason for Infection Control Referral: Current Dialysis Patient 04/10/25 17:17 Referral Wound Care Routine Comment: 04/13/25 17:08 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 Gunderson), type 2 diabetes mellitus, hypertension, CVA with residual left-sided weakness who was admitted for small bowel obstruction on 04/09/2025 with N/V, able to pass flatus. Labs showed leukocytosis 12.5, LA peaked 4.8, K 7.4 requiring urgent hemodialysis. Patient received HD every other day thereafter. Initiated empiric antibiotics with Flagyl and Rocephin for prevention of transmigration possible enteritis/colitis. CT A/P showed SBO, atrophic kidneys, and a 5 mm pulmonary nodule in the right middle lobe.? NG tube placed and small bowel series initiated, which confirmed SBO. O2 sats dropped to 70?s and patient developed altered mentation while pt lied supine during HD, RR activated, bag-mask ventilation started, and upgraded to ICU on 04/10. CXR showed Interval mild to moderate bibasilar pneumonia. pH 7.45, pCO2 60, pO2 79, bicarb 42. There was no need for intubation.? Patient respiratory function and mentation improved while in ICU. CT angiogram of the chest ruled out pulmonary embolism.? Antibiotics were discontinued in ICU due to low risk of bacterial translocation. The etiology of her initial hypoxemia was determined to be hypovolemia in the setting of large volume losses through NGT suction and hemodialysis. Midodrine 10mg TID started to maintain MAP. Repeat small bowel series showed high-grade SBO, and pt was taken to OR for ex- lap on 04/12. At the proximal ileum patient was noted to have 2 large pieces of foreign objects that were causing complete bowel obstruction. Proximal to the area of obstruction an approximately 3 cm enterotomy was performed, the foreign bodies were milked retrograde and were removed from the enterotomy site.? These pieces appeared to be large pieces of undigested fruit.? Once the proximal small bowel was decompressed, the enterotomy site was closed in transverse fashion. Pt returned intubated to the ICU 04/12. Overnight was hypotensive and unresponsive to fluids, therefore started on levophed. Given new development her abx coverage was broadened. AM 04/13, she was able to be weened off of levo and all sedation was stopped. Pt was extubated and downgraded to floors. NGT was discontinued the following day and patient started on clear liquid diet. No leukocytosis, hemoglobin stable 9.5. Patient tolerated full liquid and dysphagia 2 well afterwards and was having BM. Patient saturating well on room air. At the time of discharge, patient is medically stable and deemed safe to return to his/her previous state of living. Admission diagnosis: #High-grade small bowel obstruction, resolved # S/p ex lap and bowel resection, 04/12/2025, #Lactic acidosis, improving #Hospital-acquired delirium #Anxiety #ESRD on HD (M/W/F) #Hyperkalemia, resolved #Type 2 diabetes mellitus, at goal #History of hypertension Discharge instructions: * Follow-up with PCP within 1-2 weeks of discharge. * Hold aspirin 81 mg delayed release until you see your PCP as early as 04/23/2025. * Follow-up with your surgeon Dr. Jack within 1 to 2 weeks of discharge for reassessment of surgical incision sites and removal of metal sutures. * Take Sparta 5-300 mg for moderate to severe pain every 6 hours as needed * Take amlodipine 5 mg at night. Continue to take the rest of your medications including metoprolol succinate 100 mg, losartan 25 mg, and ropinirole 4 mg every morning. Please continue to take your medication as prescribed below. * You may follow-up with one of our residents doctor with the [facility] at the address below. * Continue taking medications as prescribed below. * Return to Emergency Room if symptoms persist, worsen, or new symptoms develop. [facility] [address] [place] [address] This case was discussed with my attending physician, Dr. Moreno, and senior resident, Dr Dixon. Lori Yuen, DO PGY I Status at Discharge Cognitive/behavioral status at discharge: Stable Functional status at discharge: uses cane/walker Overall status at discharge: patient is back to baseline Time Spent with Patient Time attestation: Total time spent providing and/or coordinating discharge services: 38 min Time spent: Greater than 30 minutes Exam Vital Signs Temp Pulse Resp BP Pulse Ox O2 Del Method O2 Flow Rate 97.6 F 81 18 156/61 H 95 Nasal Cannula 2 04/16/25 11:20 04/16/25 12:00 04/16/25 11:22 04/16/25 11:20 04/16/25 11:22 04/16/25 11:20 04/16/25 11:22 FiO2 35 04/15/25 07:55 Narrative Exam General: Alert and appears more fatigued/tired compared to prior, NGT in place HEENT: Normocephalic, Atraumatic. Normal neck range of motion, Supple. Trachea midline. Respiratory: Lungs are clear to auscultation, Breath sounds are equal bilaterally with equal chest expansion. Cardiovascular: RRR, normal S1, S2, no murmurs Abdomen: Vertical surgical scar covered under bandage. Abdomen is soft and minimally distended.? Incision with dressings clean, dry and intact. Diminished/absent bowel sounds x 4. percussion dull.? Musculoskeletal: No erythema, swelling, tenderness of any joints. Neurologic: NEURO: Oriented x3, cranial nerves II to XII grossly intact.? Left upper extremity paralysis and loss of sensation residual effect of CVA in 2023 Discharge Plan Plan Patient Disposition: Home w/HOME HEALTH Patient condition on transfer: Stable Care Plan Goals: * Follow-up with PCP within 1-2 weeks of discharge. * Hold aspirin 81 mg delayed release until you see your PCP as early as 5. * Follow-up with your surgeon Dr. Jack within 1 to 2 weeks of discharge for reassessment of surgical incision sites and removal of metal sutures. * Take Sparta 5-300 mg for moderate to severe pain every 6 hours as needed * Take amlodipine 5 mg at night. Continue to take the rest of your medications including metoprolol succinate 100 mg, losartan 25 mg, and ropinirole 4 mg every morning. Please continue to take your medication as prescribed below. * You may follow-up with one of our residents doctor with the [facility] at the address below. * Continue taking medications as prescribed below. * Return to Emergency Room if symptoms persist, worsen, or new symptoms develop. [facility] [address] [place] [address] Prescriptions/Referrals Prescriptions/Med Rec: New oxycodone 5 mg tablet 5 mg PO Q8H MDD 15 PRN (Reason: pain) 5 Days Qty: 10 0RF Continued sevelamer carbonate 800 mg tablet 800 mg PO TIDWM albuterol sulfate 2.5 mg /3 mL (0.083 %) solution for nebulization 3 ml continuous nebulization TID PRN (Reason: WHEEZING) hydralazine 50 mg tablet 100 mg PO TID metoprolol succinate 100 mg tablet extended release 24 hr 100 mg PO QMORNING omeprazole 40 mg capsule,delayed release(DR/EC) 40 mg PO QDAY gabapentin 300 mg capsule 300 mg PO 3XD Lokelma 10 gram powder in packet 10 g PO QDAY [facility] Rx 1-60-300 mg-mg-mcg tablet 1 tab PO QDAY lidocaine 5 % adhesive patch,medicated 1 patch TOPICAL QDAY ropinirole 4 mg Tablet 4 mg PO DAILY Rx Instructions: TAKE 1 TABLET BY MOUTH 2 HOURS PRIOR TO BEDTIME losartan 25 mg tablet 25 mg PO QDAY Qty: 30 0RF Changed amlodipine 5 mg tablet 5 mg PO HS 30 Days Qty: 30 0RF Held aspirin [Adult Low Dose Aspirin] 81 mg tablet,delayed release (DR/EC) 81 mg PO QDAY Qty: 30 0RF Hold Instructions: Resume on 04/23/25. HOLD until follow up with PCP Discontinued hydrocodone-acetaminophen 10-325 mg tablet 5 tab PO QDAY PRN (Reason: Pain) hydrocodone-acetaminophen 5-325 mg tablet 1 tab PO Q6H MDD 9 PRN (Reason: pain) Qty: 14 0RF Referrals: Anita Bobby [Primary Care Provider] Patient/Caregiver Discharge Instructions Discharge Activity: as per physical therapy Other Discharge Activity Instructions:: Follow-up with PCP within 1-2 weeks of discharge. ? Hold aspirin 81 mg delayed release until you see your PCP as early as 04/23/2025. ? Follow-up with your surgeon Dr. Jack within 1 to 2 weeks of discharge for reassessment of surgical incision sites and removal of metal sutures. ? Take Sparta 5-300 mg for moderate to severe pain every 6 hours as needed ? Take amlodipine 5 mg at night. Continue to take the rest of your medications including metoprolol succinate 100 mg, losartan 25 mg, and ropinirole 4 mg every morning. Please continue to take your medication as prescribed below. ? You may follow-up with one of our residents doctor with the [facility] at the address below. ? Continue taking medications as prescribed below. ? Return to Emergency Room if symptoms persist, worsen, or new symptoms develop. [facility] [address] [place], [place] [id number] Education Materials: Abdominal Pain, Coping with Kidney Failure, Understanding the Pain Response Print Language: [place] Islander Stand Alone Forms: Deepa Award Info., Patient Portal Info Letter Discharge Order Discharge Orders: Discharge (Routine); Ordered 04/16/25 Ordered By: Marcell Dixon Quality Discharge Quality Measures VTE prophylaxis Attestestation Attestation I attest that I was physically present for the evaluation, physical examination, lab and imaging review of the patient with the residents. I discussed the case with the residents and agree with the findings and plans of care as documented above. Kan Moreno MD
--- NOTE | 2025-04-17 08:13 | PC.CC ---
Addendum entered by Marcia Kauffman RN 04/17/25 13:29: seva accepted and booked, soc pending Addendum entered by Marcia Kauffman RN 04/17/25 13:03: HH order received, ref sent out, waiting for responses Addendum entered by Marcia Kauffman RN 04/17/25 12:53: spoke to Dr. Moreno, he stated he will review the chart. He will determine if pt needs HH order Original Note: spoke to Dr. Yuen regarding hh order as he wrote the dc summary. Informed him the patient's dc disposition is showing home w/ hh however no hh orders were entered. He stated to reach out his attending for the order if necessary. Will reach out to Dr. Moreno.
== END 2025-04-16 18:44 | disposition home health service (06) | DRG 326 ==
LOC: SERX 06:58 → SERHOLD 11:54 → S2NX 15:06 → S2SX 04-10 11:14 → S3NX 04-14 06:15
PROVIDERS: Internal Medicine; Nurse Anesthetist, Certified Registered; Student in an Organized Health Care Education/Training Program; Surgery; Admitting Provider Student in an Organized Health Care Education/Training Program; Emergency Provider Emergency Medicine; PCP Nurse Practitioner Family; Visit Provider Student in an Organized Health Care Education/Training Program
PROC: (CPT 49000; principal; 2025-04-12 11:30)
DX: K56.601 Complete intestinal obstruction, unspecified as to cause (principal); J18.9 Pneumonia, unspecified organism; J96.01 Acute respiratory failure with hypoxia; N18.6 End stage renal disease; I13.2 Hypertensive heart and chronic kidney disease with heart failure and with stage 5 chronic kidney disease, or end stage renal disease; I69.354 Hemiplegia and hemiparesis following cerebral infarction affecting left non-dominant side; E87.4 Mixed disorder of acid-base balance; R57.9 Shock, unspecified; F05 Delirium due to known physiological condition; Z99.2 Dependence on renal dialysis; E11.22 Type 2 diabetes mellitus with diabetic chronic kidney disease; Z79.4 Long term (current) use of insulin; I50.9 Heart failure, unspecified; E87.5 Hyperkalemia; I95.9 Hypotension, unspecified; D64.9 Anemia, unspecified; N28.1 Cyst of kidney, acquired; Z51.5 Encounter for palliative care; Z79.899 Other long term (current) drug therapy; Z88.2 Allergy status to sulfonamides; Z90.710 Acquired absence of both cervix and uterus; F41.9 Anxiety disorder, unspecified; E86.1 Hypovolemia
CPT/HCPCS: 36415; 36600; 71045; 71275; 74018; 74176; 74177; 74250; 80048; 80053; 80069; 80074; 81001; 82140; 82150; 82803; 83036; 83605; 83735; 84100; 84145; 84443; 84484; 85014; 85018; 85025; 85610; 85730; 86140; 86706; 86850; 86900; 86901; 86923; 87040; 87081; 87086; 87106; 87186; 87205; 90935; 93005; 93225; 94002; 94003; 94644; 94660; 96361; 96365; 96375; 96376; 97162; 99285; A4649; J0131; J0612; J0690; J0694; J0696; J1171; J1200; J1450; J1644; J1815; J1938; J2250; J2270; J2371; J2405; J2543; J2704; J2765; J3010; J3490; J7050; J7120; P9045; P9047; Q9967; A9270; G0257; J1836

== ENCOUNTER 2025-04-25 12:01 | Emergency (ER) | payer MEDICARE, MEDICAID, SELFPAY ==
[2025-04-25 12:14] VITALS: BP 149/70; PULSE 95; RESP 20; TEMP 36.8; O2SAT 95; BMI 26.4
--- NOTE | 2025-04-25 12:32 | PD.EDRME ---
Rapid Medical Screening Exam E Arrival date/time: 04/25/25 12:01 69-year-old female with history of end-stage renal disease, CHF presents to the emergency room with a chief complaint of dehiscence of an abdominal wound that occurred this morning. Patient recently had surgery for a bowel obstruction last week. Yesterday she went to see her surgeon where they removed her kathy. I have greeted and performed a focused initial assessment of this patient. A comprehensive ED assessment and evaluation of the patient, analysis of all test results, and completion of the medical decision making process will be conducted by additional ED providers. Chief Complaint: General Adult/Misc Complain Vital signs: Vital Signs Temperature 98.2 F 04/25/25 12:14 Pulse Rate 95 04/25/25 12:14 Respiratory Rate 20 04/25/25 12:14 Blood Pressure 149/70 H 04/25/25 12:14 Pulse Oximetry (%) 95 04/25/25 12:14 Oxygen Delivery Method Room Air 04/25/25 12:14 Vital signs reviewed by provider: Yes
--- NOTE | 2025-04-25 14:18 | PD.EDADULT ---
ED General RME/HPI General Chief complaint: General Adult/Misc Complain Stated complaint: ABD INCISION OPENED Time Seen by Provider: 04/25/25 12:33 Arrival date/time: 04/25/25 12:01 RME / HPI RME / HPI narrative: 04/25/25 12:01 69-year-old female with history of end-stage renal disease, CHF presents to the emergency room with a chief complaint of dehiscence of an abdominal wound that occurred this morning. Patient recently had surgery for a bowel obstruction last week. Yesterday she went to see her surgeon where they removed her kathy. I have greeted and performed a focused initial assessment of this patient. A comprehensive ED assessment and evaluation of the patient, analysis of all test results, and completion of the medical decision making process will be conducted by additional ED providers. DR. BURKS MAIN ED EVALUATION 69 year old female with history of CVA, hypertension, diabetes, ESRD on HD M/W/F, and underwent exploratory laparotomy, enterotomy with removal of 2 foreign objects causing complete bowel obstruction on 04/12/2025 presents to the ED for evaluation of surgical wound today. Patient states she noticed the wound opening this morning, prompting ED visit. No other associated symptoms reported. Denies fevers. Related Data Home Medications ?Medication ?Instructions ?Recorded ?Confirmed sevelamer carbonate 800 mg tablet 800 mg PO TIDWM 07/30/21 04/09/25 hydralazine 50 mg tablet 100 mg PO TID 10/02/21 04/09/25 albuterol sulfate 2.5 mg/3 mL 3 ml continuous nebulization TID 12/04/21 04/09/25 (0.083 %) solution for nebulization PRN WHEEZING lidocaine 5 % topical patch 1 patch topical QDAY 08/01/22 04/09/25 ropinirole 4 mg tablet 4 mg PO DAILY 08/01/22 04/09/25 gabapentin 300 mg capsule 300 mg PO 3XD 12/28/23 04/09/25 metoprolol succinate 100 mg 100 mg PO QMORNING 12/28/23 04/09/25 tablet,extended release 24 hr omeprazole 40 mg capsule,delayed 40 mg PO QDAY 12/28/23 04/09/25 release sodium zirconium cyclosilicate 10 10 g PO QDAY 06/10/24 09/21/25 gram oral powder packet (Lokelma) vitamin B comp no.3-folic acid 1 1 tab PO QDAY 04/09/25 04/09/25 mg-vit C 60 mg-biotin 300 mcg tablet ([facility] Rx) Previous Rx's ?Medication ?Instructions ?Recorded aspirin 81 mg tablet,delayed 81 mg PO QDAY #30 tabs 05/24/21 release (Adult Low Dose Aspirin) Held on 04/16/25. Instructions: Resume on 04/23/25. HOLD until follow up with PCP losartan 25 mg tablet 25 mg PO QDAY #30 tabs 08/04/22 amlodipine 5 mg tablet 5 mg PO HS 1 month #30 tabs 04/16/25 Allergies Allergy/AdvReac Type Severity Reaction Status Date / Time sulfamethoxazole Allergy Unknown Swelling Verified 04/25/25 12:06 of Lip/Tongue/Throat trimethoprim Allergy Unknown Swelling Verified 04/25/25 12:06 of Lip/Tongue/Throat Review of Systems Review of Systems Systems Reviewed: All systems reviewed, normal except as documented Past Medical History Past Medical History NEUROLOGIC: Positive Neurological Disorders, Cerebrovascular Accident (2020 left side weakness) and Peripheral Neuropathy CARDIAC: Positive Hypertension RESPIRATORY: Positive Asthma and Pneumonia GASTROINTESTINAL: Positive Gastrointestinal Disorders, Obstructive Bowel (2nd or 3rd time in past 10 years), Gastroesophageal Reflux Disease and Obesity GENITOURINARY: Positive Renal Disease and Dialysis MUSCULOSKELETAL: Positive Musculoskeletal Disorders, Arthritis, Osteoporosis and Carpal Tunnel Syndrome ENT: Positive Deafness ENDOCRINE: Positive Diabetes Mellitus Type 2 PSYCHO/SOCIAL: Positive Depression and Anxiety OTHER HISTORY: Positive Hospitalization (2023), Shingles, Falls, MRSA (more than 4 years ago) and Chicken Pox Family History FAMILY HISTORY: Positive Family Respiratory Disorders, Family Cardiac Disorders and Family Surgery Surgical History SURGICAL: Positive Abdominal Surgery (04/13 sbo repair), Hysterectomy and Tubal Ligation (more than 10 years ago) Social History SMOKING STATUS: Never smoker SECOND HAND EXPOSURE: Yes Course Quality Measures none Vital Signs Vital signs: Vital Signs Temperature 98.2 F 04/25/25 12:14 Pulse Rate 95 04/25/25 12:14 Respiratory Rate 20 04/25/25 12:14 Blood Pressure 149/70 H 04/25/25 12:14 Pulse Oximetry (%) 95 04/25/25 12:14 Oxygen Delivery Method Room Air 04/25/25 12:14 Discharge Plan Plan Patient Disposition: HOME (Self Care) Prescriptions/Referrals Prescriptions/Med Rec: No Action aspirin [Adult Low Dose Aspirin] 81 mg tablet,delayed release (DR/EC) 81 mg PO QDAY Qty: 30 0RF sevelamer carbonate 800 mg tablet 800 mg PO TIDWM albuterol sulfate 2.5 mg /3 mL (0.083 %) solution for nebulization 3 ml continuous nebulization TID PRN (Reason: WHEEZING) hydralazine 50 mg tablet 100 mg PO TID metoprolol succinate 100 mg tablet extended release 24 hr 100 mg PO QMORNING omeprazole 40 mg capsule,delayed release(DR/EC) 40 mg PO QDAY gabapentin 300 mg capsule 300 mg PO 3XD Lokelma 10 gram powder in packet 10 g PO QDAY [facility] Rx 1-60-300 mg-mg-mcg tablet 1 tab PO QDAY amlodipine 5 mg tablet 5 mg PO HS 30 Days Qty: 30 0RF lidocaine 5 % adhesive patch,medicated 1 patch TOPICAL QDAY ropinirole 4 mg Tablet 4 mg PO DAILY Rx Instructions: TAKE 1 TABLET BY MOUTH 2 HOURS PRIOR TO BEDTIME losartan 25 mg tablet 25 mg PO QDAY Qty: 30 0RF Referrals: Royal Jack MD [Physician, General Surgery] - 05/01/25 Problem List Clinical Impression: Abdominal wound dehiscence Patient/Caregiver Discharge Instructions Education Materials: ED Packing Removal Replacement Additional Instructions: Follow up with Dr. aJck on 05/01/25. Call office for appointment time. Take over the counter vitamin C and zinc supplements daily Print Language: Slovenian Stand Alone Forms: Deepa Award Info., Patient Portal Info Letter MDM Narrative MDM hospital course (for use when minimal MDM required): Juanita Sandoval am scribing for and in the presence of Dr. Burks. I spoke with surgeon Dr. Jack, states he will come evaluate the patient in the ED. Clinical Information Provided by: patient Medical Records reviewed [facility] Meds/Rx considered, not ordered None Labs/Rad/Tests considered, not ordered None Chronic Illness/Social Conditions which may negatively complicate care or outcome(s)-explain: CVA/aphasic EKG EKG not done Labs Labs: none Imaging Imaging interpretation: none Diagnosis Diagnoses ruled out and/or further discussions: Abdominal wound dehiscence
[2025-04-25 14:27] VITALS: BP 130/65; PULSE 90; RESP 18; TEMP 36.6; O2SAT 95
== END 2025-04-25 14:28 | disposition home or self-care (01) ==
LOC: SERX 13:51
PROVIDERS: Emergency Provider Emergency Medicine; PCP Nurse Practitioner Family
DX: T81.31XA Disruption of external operation (surgical) wound, not elsewhere classified, initial encounter (principal); Y83.8 Other surgical procedures as the cause of abnormal reaction of the patient, or of later complication, without mention of misadventure at the time of the procedure
CPT/HCPCS: 99281

== ENCOUNTER → 2025-05-25 | Outpatient (CLI) | payer MEDICARE, SELFPAY | END | disposition home or self-care (01) | PROVIDERS: PCP Nurse Practitioner Family; Referring Provider Nurse Practitioner Family; Visit Provider Student in an Organized Health Care Education/Training Program | DX: T81.89XA Other complications of procedures, not elsewhere classified, initial encounter (principal); S31.109A Unspecified open wound of abdominal wall, unspecified quadrant without penetration into peritoneal cavity, initial encounter; X58.XXXA Exposure to other specified factors, initial encounter; Z86.73 Personal history of transient ischemic attack (TIA), and cerebral infarction without residual deficits; N18.6 End stage renal disease; D64.9 Anemia, unspecified; Z99.3 Dependence on wheelchair; J45.909 Unspecified asthma, uncomplicated; Z96.612 Presence of left artificial shoulder joint; E11.69 Type 2 diabetes mellitus with other specified complication | CPT/HCPCS: 97597; 99213; A9270; G0463 ==

== ENCOUNTER 2025-05-27 09:58 | Emergency (ER) | payer MEDICARE, SELFPAY ==
[2025-05-27 11:05] VITALS: BP 159/72; PULSE 84; RESP 18; TEMP 37; O2SAT 95; BMI 25.4
--- NOTE | 2025-05-27 11:32 | PD.EDRECHK ---
ED Recheck Abnl Lab Rx-RME/HPI General Chief Complaint: Recheck/Abnormal Lab/Rx Stated Complaint: nasal swab +for pseudomonas aeruginosa Time Seen by Provider: 05/27/25 11:14 Arrival date/time: 05/27/25 09:58 69-year-old female patient with significant history of CVA, diabetes mellitus hypertension, was brought in by family for evaluation regarding possible nasal infection. Patient has been having worsening pain and swelling to the nasal passages, been going for the last 1 month getting worse. Was seen by PCP and was started on Augmentin 2 days ago. Patient denies any fever denies any shortness of breath denies any other complaints no headache. No facial pain. No medication was taken prior to ER visit Related Data Home Medications ?Medication ?Instructions ?Recorded ?Confirmed sevelamer carbonate 800 mg tablet 800 mg PO TIDWM 07/30/21 04/09/25 hydralazine 50 mg tablet 100 mg PO TID 10/02/21 04/09/25 albuterol sulfate 2.5 mg/3 mL 3 ml continuous nebulization TID 12/04/21 04/09/25 (0.083 %) solution for nebulization PRN WHEEZING lidocaine 5 % topical patch 1 patch topical QDAY 08/01/22 04/09/25 ropinirole 4 mg tablet 4 mg PO DAILY 08/01/22 04/09/25 gabapentin 300 mg capsule 300 mg PO 3XD 12/28/23 04/09/25 metoprolol succinate 100 mg 100 mg PO QMORNING 12/28/23 04/09/25 tablet,extended release 24 hr omeprazole 40 mg capsule,delayed 40 mg PO QDAY 12/28/23 04/09/25 release sodium zirconium cyclosilicate 10 10 g PO QDAY 12/28/23 04/09/25 gram oral powder packet (Lokelma) vitamin B comp no.3-folic acid 1 1 tab PO QDAY 04/09/25 04/09/25 mg-vit C 60 mg-biotin 300 mcg tablet ([facility]) Previous Rx's ?Medication ?Instructions ?Recorded aspirin 81 mg tablet,delayed 81 mg PO QDAY #30 tabs 05/24/21 release (Adult Low Dose Aspirin) Held on 04/16/25. Instructions: Resume on 04/23/25. HOLD until follow up with PCP losartan 25 mg tablet 25 mg PO QDAY #30 tabs 08/04/22 amlodipine 5 mg tablet 5 mg PO HS 1 month #30 tabs 04/16/25 clindamycin HCl 300 mg capsule 300 mg PO TID #21 caps 05/27/25 (Cleocin HCl) Allergies Allergy/AdvReac Type Severity Reaction Status Date / Time sulfamethoxazole Allergy Unknown Swelling Verified 05/27/25 10:04 of Lip/Tongue/Throat trimethoprim Allergy Unknown Swelling Verified 05/27/25 10:04 of Lip/Tongue/Throat Review of Systems Review of Systems Narrative Review of Systems: Review of system reviewed and within normal limits except mentioned in HPI ED Exam Narrative Physical exam: VITAL SIGNS: Reviewed. GENERAL APPEARANCE: Alert and interactive, follows commands, no acute distress, HEAD AND FACE: Non-traumatic. ENT: PERRL, pink conjunctivitis, eyelid no trauma, Mucous membrane moist. NECK: Supple, nontender, no nuchal rigidity. Swelling redness and tenderness noted on the right naris CHEST: No tenderness, no crepitus, no paradoxical movement, no retractions. LUNGS: Clear, well ventilated, symmetric, no rales, no wheezing, no ronchi, no stridor, good breath sounds bilaterally. HEART: Regular rate, regular rhythm, no murmur, no gallops. ABDOMEN: Soft, positive bowel sounds, nondistended, no guarding, nontender, no rebound, no masses, RECTAL: Deferred. GENITAL: Deferred. NEUROLOGICAL: Gross motor function intact sensory function intact, Appropriate for age. MUSCULOSKELETAL: low back nontender, full range of motion. EXTREMITIES: Nontender, full range of motion. SKIN: Color pink, dry, no rash, no lacerations, no abrasions, no contusions. LYMPHATICS: Deferred. Course Quality Measures none Orders Category Date Time Status MRSA Nasal Screen Stat Lab 05/27/25 11:31 Ordered Wound Culture and Gram Stain Stat Lab 05/27/25 11:31 Ordered Clindamycin Vial [Cleocin vial] Med 05/27/25 11:31 Discontinued 600 mg IM X1 ONE Vital Signs Vital signs: Vital Signs Temperature 98.6 F 05/27/25 11:05 Pulse Rate 84 05/27/25 11:05 Respiratory Rate 18 05/27/25 11:05 Blood Pressure 159/72 H 05/27/25 11:05 Pulse Oximetry (%) 95 05/27/25 11:05 Oxygen Delivery Method Room Air 05/27/25 11:05 Recheck / Abnormal Lab / Rx MDM Narrative MDM Narrative:: 69-year-old female patient with significant history of CVA, diabetes mellitus hypertension, was brought in by family for evaluation regarding possible nasal infection. Patient has been having worsening pain and swelling to the nasal passages, been going for the last 1 month getting worse. Was seen by PCP and was started on Augmentin 2 days ago. Patient denies any fever denies any shortness of breath denies any other complaints no headache. No facial pain. No medication was taken prior to ER visit Culture/Gram staining was done on the nose, MRSA screening was also done. Patient was given clindamycin IM. Will send the patient home clindamycin. Was advised to follow-up with appointment with ENT. Patient agrees with the plan Patient data External records reviewed:: None Clinical information provided by:: patient and family Social determinants that could affect healthcare access:: none Patient has the following chronic illnesses:: Diabetes mellitus How is presenting disease/condition affected by chronic disease/condition?: exacerbated by Evaluation data The following diagnostics were reviewed and interpreted by me:: lab results Lab and/or radiology exams considered but not ordered:: None Interpretation Summary: Gram staining and MRSA screening will next few days. I advised him to follow-up with PCP. For the results Medications / Prescriptions Medications or Prescriptions considered but not ordered:: None Medication administrations:: Medication Administration History Discontinued Medications Clindamycin Phosphate (Clindamycin Phos Inj 150 Mg/Ml Vial 6 Ml) 600 mg IM X1 ONE Stop: 05/27/25 11:32 Last Admin: 05/27/25 13:30 Dose: 600 mg Documented By: BD Clindamycin IM Consultations Consultation(s) initiated? (list below): No Diagnosis Recheck Differential Diagnosis: encounter for wound recheck and other (Suspect MRSA nares, infection nose nares) Most likely diagnosis given after review of the tests above:: Infection of the nose Admission Indicated Admission indicated?: not indicated Admission Request Was there a request for admission?: No Disposition Plan Disposition Plan: Discharge Discharge Attestation Discharge Attestation: The patient and all family members were given an opportunity to ask questions and understood the discharge instructions. Discharge instructions specifically effects, indications for sooner follow up or return to the emergency department, and the expected course of current diagnosis. Patient condition: Stable Discharge Plan Plan Patient Disposition: HOME (Self Care) Discharge Disposition comment: Stable Prescriptions/Referrals Prescriptions/Med Rec: New clindamycin HCl [Cleocin HCl] 300 mg capsule 300 mg PO TID Qty: 21 0RF No Action aspirin [Adult Low Dose Aspirin] 81 mg tablet,delayed release (DR/EC) 81 mg PO QDAY Qty: 30 0RF sevelamer carbonate 800 mg tablet 800 mg PO TIDWM albuterol sulfate 2.5 mg /3 mL (0.083 %) solution for nebulization 3 ml continuous nebulization TID PRN (Reason: WHEEZING) hydralazine 50 mg tablet 100 mg PO TID metoprolol succinate 100 mg tablet extended release 24 hr 100 mg PO QMORNING omeprazole 40 mg capsule,delayed release(DR/EC) 40 mg PO QDAY gabapentin 300 mg capsule 300 mg PO 3XD Lokelma 10 gram powder in packet 10 g PO QDAY [facility] 1-60-300 mg-mg-mcg tablet 1 tab PO QDAY amlodipine 5 mg tablet 5 mg PO HS 30 Days Qty: 30 0RF lidocaine 5 % adhesive patch,medicated 1 patch TOPICAL QDAY ropinirole 4 mg Tablet 4 mg PO DAILY Rx Instructions: TAKE 1 TABLET BY MOUTH 2 HOURS PRIOR TO BEDTIME losartan 25 mg tablet 25 mg PO QDAY Qty: 30 0RF Referrals: Nikita Davis[facility]MD [Primary Care Provider, Family Practice] - In 1 week Problem List Clinical Impression: Infection of nose Patient/Caregiver Discharge Instructions Discharge Activity: activity as tolerated Education Materials: Anatomy Nasal Additional Instructions: Thank you for the opportunity for serving you today. You are stable for discharged . You are advised to: Follow-up with your PCP in 1 to 2 days Return to ED for worsening of symptoms Increase oral fluids Take medication as prescribed Print Language: Romanian Stand Alone Forms: Deepa Award Info., Patient Portal Info Letter PA/LITERACY SPECIALIST Supervising Physician PA/LITERACY SPECIALIST Supervising Physician: MD Diamante
[2025-05-27] MEDS: CLINDAMYCIN PHOS INJ 150 MG/ML VIAL 6 ML 600 MG IM (13:30)
== END 2025-05-27 14:05 | disposition home or self-care (01) ==
PROVIDERS: Emergency Provider Emergency Medicine; PCP Family Medicine
DX: E11.9 Type 2 diabetes mellitus without complications (principal); I10 Essential (primary) hypertension
CPT/HCPCS: 87070; 87077; 87081; 87186; 87205; 96372; 99282; J0736

== ENCOUNTER → 2025-06-01 | Outpatient (CLI) | payer MEDICARE, SELFPAY | END | disposition home or self-care (01) | LOC: SWHD 09:17 | PROVIDERS: PCP Nurse Practitioner Family; Referring Provider Nurse Practitioner Family; Visit Provider Student in an Organized Health Care Education/Training Program | DX: T81.89XA Other complications of procedures, not elsewhere classified, initial encounter (principal); S31.109A Unspecified open wound of abdominal wall, unspecified quadrant without penetration into peritoneal cavity, initial encounter; X58.XXXA Exposure to other specified factors, initial encounter; N18.6 End stage renal disease; D64.9 Anemia, unspecified; Z86.73 Personal history of transient ischemic attack (TIA), and cerebral infarction without residual deficits; Z99.3 Dependence on wheelchair; J45.909 Unspecified asthma, uncomplicated; Z96.612 Presence of left artificial shoulder joint; E11.69 Type 2 diabetes mellitus with other specified complication; I12.0 Hypertensive chronic kidney disease with stage 5 chronic kidney disease or end stage renal disease | CPT/HCPCS: 11042; A9270 ==

== ENCOUNTER → 2025-06-08 | Outpatient (CLI) | payer MEDICARE, SELFPAY | END | disposition home or self-care (01) | LOC: SWHD 10:54 | PROVIDERS: PCP Nurse Practitioner Family; Referring Provider Nurse Practitioner Family; Visit Provider Student in an Organized Health Care Education/Training Program | DX: T81.89XA Other complications of procedures, not elsewhere classified, initial encounter (principal); S31.109A Unspecified open wound of abdominal wall, unspecified quadrant without penetration into peritoneal cavity, initial encounter; X58.XXXA Exposure to other specified factors, initial encounter; N18.6 End stage renal disease; D64.9 Anemia, unspecified; Z86.73 Personal history of transient ischemic attack (TIA), and cerebral infarction without residual deficits; Z99.3 Dependence on wheelchair; J45.909 Unspecified asthma, uncomplicated; Z96.612 Presence of left artificial shoulder joint; E11.69 Type 2 diabetes mellitus with other specified complication | CPT/HCPCS: 11042; A9270 ==

== ENCOUNTER → 2025-06-22 | Outpatient (CLI) | payer MEDICARE, SELFPAY | END | disposition home or self-care (01) | LOC: SWHD 13:24 | PROVIDERS: PCP Nurse Practitioner Family; Referring Provider Nurse Practitioner Family; Visit Provider Student in an Organized Health Care Education/Training Program | DX: T81.89XA Other complications of procedures, not elsewhere classified, initial encounter (principal); S31.109A Unspecified open wound of abdominal wall, unspecified quadrant without penetration into peritoneal cavity, initial encounter; X58.XXXA Exposure to other specified factors, initial encounter; Z86.73 Personal history of transient ischemic attack (TIA), and cerebral infarction without residual deficits; N18.6 End stage renal disease; D64.9 Anemia, unspecified; Z99.3 Dependence on wheelchair; J45.909 Unspecified asthma, uncomplicated; Z96.612 Presence of left artificial shoulder joint; E11.69 Type 2 diabetes mellitus with other specified complication | CPT/HCPCS: 97597; A9270 ==

== ENCOUNTER → 2025-06-29 | Outpatient (CLI) | payer MEDICARE, SELFPAY | END | disposition home or self-care (01) | LOC: SWHD 14:39 | PROVIDERS: PCP Nurse Practitioner Family; Referring Provider Nurse Practitioner Family; Visit Provider Student in an Organized Health Care Education/Training Program | DX: T81.89XA Other complications of procedures, not elsewhere classified, initial encounter (principal); S31.109A Unspecified open wound of abdominal wall, unspecified quadrant without penetration into peritoneal cavity, initial encounter; X58.XXXA Exposure to other specified factors, initial encounter; Z86.73 Personal history of transient ischemic attack (TIA), and cerebral infarction without residual deficits; N18.6 End stage renal disease; D64.9 Anemia, unspecified; Z99.3 Dependence on wheelchair; J45.909 Unspecified asthma, uncomplicated; Z96.612 Presence of left artificial shoulder joint; E11.69 Type 2 diabetes mellitus with other specified complication | CPT/HCPCS: 99213; G0463 ==